=== PATIENT | male | born 1945 ===

== ENCOUNTER 2019-04-09 21:34 | Inpatient (IN) | payer MEDICARE ==
[~2019-04-09] VITALS: Ht 170.2 cm; Wt 58.7 kg
--- NOTE | 2019-04-09 21:54 | PHYS DOC ---
Adult General Chief Complaint Chief Complaint: CHEST PAIN HPI HPI 73-year-old male presents to the emergency Department with complaints of shortness of breath, chest pain. He has underlying history of diabetes, hyperlipidemia, hypertension, end-stage renal disease with hemodialysis dependency. Patient states he's missed the dialysis on Monday/Monday. He complains of substernal chest pain ongoing for approximately 1 hour. This however has been ongoing times the last day off/on. Pain is described as sharp. He is tachypneic/pale on exam Review of Systems Review of Systems Constitutional: Denies fever or chills [] Eyes: Denies change in visual acuity, redness, or eye pain [] HENT: Denies nasal congestion or sore throat [] Respiratory: Denies cough or shortness of breath [] Cardiovascular: No additional information not addressed in HPI [] GI: Denies abdominal pain, nausea, vomiting, bloody stools or diarrhea [] : Denies dysuria or hematuria [] Musculoskeletal: Denies back pain or joint pain [] Integument: Denies rash or skin lesions [] Neurologic: Denies headache, focal weakness or sensory changes [] Endocrine: Denies polyuria or polydipsia [] All other systems were reviewed and found to be within normal limits, except as documented in this note. Current Medications Current Medications Current Medications Medications (Trade) Dose Ordered Sig/Magno Start Time Stop Time Status Last Admin Dose Admin Albuterol/ Ipratropium (Duoneb) 3 ml 1X ONCE 04/09/19 22:00 04/09/19 22:01 DC 04/09/19 21:54 3 ML Heparin Sodium (Porcine) (Heparin Sodium) 1,500 unit PRN Q6HRS PRN 04/09/19 23:15 Heparin Sodium/ Dextrose 250 ml @ 0 mls/hr CONT PRN 04/09/19 23:15 Morphine Sulfate (Morphine Sulfate) 2 mg 1X ONCE 04/09/19 22:30 04/09/19 22:31 DC Allergies Allergies Allergies Coded Allergies Type Severity Reaction Last Updated Verified No Known Drug Allergies 04/09/19 No Physical Exam Physical Exam Constitutional: Well developed, well nourished, no acute distress, non-toxic appearance. [] HENT: Normocephalic, atraumatic, bilateral external ears normal, oropharynx moist, no oral exudates, nose normal. [] Eyes: PERRLA, EOMI, conjunctiva normal, no discharge. [] Neck: Normal range of motion, no tenderness, supple, no stridor. [] Cardiovascular:Heart rate regular rhythm, no murmur [] Lungs & Thorax: Bilateral breath sounds clear to auscultation [] Abdomen: Bowel sounds normal, soft, no tenderness, no masses, no pulsatile masses. [] Skin: Warm, dry, no erythema, no rash. [] Back: No tenderness, no CVA tenderness. [] Extremities: No tenderness, no cyanosis, no clubbing, ROM intact, no edema. [] Neurologic: Alert and oriented X 3, normal motor function, normal sensory function, no focal deficits noted. [] Psychologic: Affect normal, judgement normal, mood normal. [] Current Patient Data Vital Signs Vital Signs Date Time Temp Pulse Resp B/P (MAP) Pulse Ox O2 Delivery O2 Flow Rate FiO2 04/09/19 22:22 100 BiPAP/CPAP 04/09/19 22:07 15.0 Lab Values Laboratory Tests Test 04/09/19 22:10 04/09/19 22:43 O2 Saturation 96 % (92-99) Arterial Blood pH 7.44 (7.35-7.45) Arterial Blood pCO2 at Patient Temp 34 mmHg (35-46) L Arterial Blood pO2 at Patient Temp 91 mmHg (65-108) Arterial Blood HCO3 22 mmol/L (21-28) Arterial Blood Base Excess -1 mmol/L (-3-3) FiO2 80 White Blood Count 12.5 x10^3/uL (4.0-11.0) H Red Blood Count 3.64 x10^6/uL (4.30-5.70) L Hemoglobin 10.8 g/dL (13.0-17.5) L Hematocrit 32.5 % (39.0-53.0) L Mean Corpuscular Volume 89 fL (79-100) Mean Corpuscular Hemoglobin 30 pg (25-35) Mean Corpuscular Hemoglobin Concent 33 g/dL (31-37) Red Cell Distribution Width 21.2 % (11.5-14.5) H Platelet Count 104 x10^3/uL (140-400) L Neutrophils (%) (Auto) 90 % (31-73) H Lymphocytes (%) (Auto) 4 % (24-48) L Monocytes (%) (Auto) 5 % (0-9) Eosinophils (%) (Auto) 1 % (0-3) Basophils (%) (Auto) 1 % (0-3) Neutrophils # (Auto) 11.2 x10^3/uL (1.8-7.7) H Lymphocytes # (Auto) 0.5 x10^3/uL (1.0-4.8) L Monocytes # (Auto) 0.6 x10^3/uL (0.0-1.1) Eosinophils # (Auto) 0.1 x10^3/uL (0.0-0.7) Basophils # (Auto) 0.1 x10^3/uL (0.0-0.2) Segmented Neutrophils % 88 % (35-66) H Lymphocytes % 4 % (24-48) L Monocytes % 5 % (0-10) Eosinophils % 3 % (0-5) Platelet Estimate Decreased (ADEQUATE) Polychromasia Slight Anisocytosis Mod Ovalocytes Few Sodium Level 138 mmol/L (136-145) Potassium Level 4.8 mmol/L (3.5-5.1) Chloride Level 96 mmol/L (98-107) L Carbon Dioxide Level 25 mmol/L (21-32) Anion Gap 17 (6-14) H Blood Urea Nitrogen 78 mg/dL (8-26) H Creatinine 9.3 mg/dL (0.7-1.3) H Estimated GFR (Cockcroft-Gault) 5.6 BUN/Creatinine Ratio 8 (6-20) Glucose Level 253 mg/dL (70-99) H Calcium Level 9.2 mg/dL (8.5-10.1) Total Bilirubin 0.5 mg/dL (0.2-1.0) Aspartate Amino Transferase (AST) 43 U/L (15-37) H Alanine Aminotransferase (ALT) 25 U/L (16-63) Alkaline Phosphatase 118 U/L (46-116) H Troponin I Quantitative 3.681 ng/mL (0.000-0.055) FZ-Uev-F-Type Natriuretic Peptide > 47939 pg/mL (0-124) H Total Protein 6.4 g/dL (6.4-8.2) Albumin 3.0 g/dL (3.4-5.0) L Albumin/Globulin Ratio 0.9 (1.0-1.7) L Laboratory Tests 04/09/19 22:43 Laboratory Tests 04/09/19 22:43 EKG EKG EKG reviewed interpretation time 2143, sinus tachycardia, 132, normal axis, no STEMI[] Radiology/Procedures Radiology/Procedures [facility] [address] [place] [address] IMAGING REPORT Signed PATIENT: TESSA GONZALEZ ACCOUNT: [id number] : 1945 LOCATION: ER AGE: 73 SEX: M EXAM STATUS: REG ER ORD. PHYSICIAN: ASHLEY CONTRERAS MD REASON: SOB PROCEDURE: PORTABLE CHEST 1V AP chest. HISTORY: Short of breath AP view was taken of the chest. There are bilateral hazy diffuse infiltrates or pulmonary edema. The heart does not appear enlarged. There is no definite pleural effusion. IMPRESSION: 1. Hazy bilateral airspace disease from infiltrates or edema. Electronically signed by: Domo Chen MD (04/09/2019 10:50 PM) [id number] DICTATED and SIGNED BY: DOMO CHEN MD DATE: 04/09/192249 [] Course & Med Decision Making Course & Med Decision Making Pertinent Labs and Imaging studies reviewed. (See chart for details) []73-year-old male presents to the emergency Department with complaints of shortness of breath, chest pain. He has underlying history of diabetes, hyperlipidemia, hypertension, end-stage renal disease with hemodialysis dependency. Patient states he's missed the dialysis on Monday/Monday. He complains of substernal chest pain ongoing for approximately 1 hour. This however has been ongoing times the last day off/on. Pain is described as sharp. He is tachypneic/pale on exam Duoneb upon arrival - ABG obtained with initiation BIPAP Imaging reveals evidence of acute pulmonary edema Patient does not urinate - lasix not provided ABG reviewed - . K within normal limits. trop elevated Heparin drip initiated with continued BIPAP - unknown baseline trop, will trend Cardiology/Renal consult placed Patient overall improved with BIPAP Dragon Disclaimer Dragon Disclaimer This electronic medical record was generated, in whole or in part, using a voice recognition dictation system. Departure Departure Impression: Primary Impression: Acute pulmonary edema Additional Impressions: Chest pain NSTEMI (non-ST elevated myocardial infarction) ESRD (end stage renal disease) on dialysis Disposition: ADMITTED INPATIENT Condition: IMPROVED Referrals: JENNIFER BLACKWELL DO (PCP) Critical Care Time Critical care time was 35 minutes exclusive of procedures. Problem Qualifiers Additional Impressions: Chest pain Chest pain type: unspecified Qualified Codes: R07.9 - Chest pain, unspecified ASHLEY CONTRERAS MD Apr 09, 2019 21:54
[2019-04-09] MEDS ORDERED: IPRATRPIUM/ALBUTEROL 0.5/2.5MG 3 ML NEBU. NEB ONE (22:00)
[2019-04-09 22:10] LABS: BASE EXCESS ABG -1 mmol/L (-3-3); HCO3 ABG 22 mmol/L (21-28); PCO2 ABG 34 mmHg (35-46); PO2 ABG 91 mmHg (65-108); SAT O2 ABG 96 % (92-99)
[2019-04-09 22:29] LABS: FIO2 ABG 80
[2019-04-09] MEDS ORDERED: MORPHINE SULFATE 2 MG/ML VIAL. IV ONE (22:30)
--- NOTE | 2019-04-09 22:53 | RAD ---
AP chest. HISTORY: Short of breath AP view was taken of the chest. There are bilateral hazy diffuse infiltrates or pulmonary edema. The heart does not appear enlarged. There is no definite pleural effusion. IMPRESSION: 1. Hazy bilateral airspace disease from infiltrates or edema. Electronically signed by: Domo Chen MD (04/09/2019 10:50 PM) [id number]
[2019-04-09 22:54] LABS: BASO # 0.1 x10^3/uL (0.0-0.2); BASO % 1 % (0-3); EOS # 0.1 x10^3/uL (0.0-0.7); EOS % 1 % (0-3); HEMATOCRIT 32.5 % (39.0-53.0); HEMOGLOBIN 10.8 g/dL (13.0-17.5); LYMPH # 0.5 x10^3/uL (1.0-4.8); LYMPH % 4 % (24-48); MEAN CORPUSCULAR HEMOGLOBIN 30 pg (25-35); MEAN CORPUSCULAR HGB CONC 33 g/dL (31-37); MEAN CORPUSCULAR VOLUME 89 fL (79-100); MONO # 0.6 x10^3/uL (0.0-1.1); MONO % 5 % (0-9); NEUT # 11.2 x10^3/uL (1.8-7.7); NEUT % 90 % (31-73); PLATELET COUNT 104 x10^3/uL (140-400); RED BLOOD COUNT 3.64 x10^6/uL (4.30-5.70); RED CELL DISTRIBUTION WIDTH 21.2 % (11.5-14.5); WHITE BLOOD COUNT 12.5 x10^3/uL (4.0-11.0)
[2019-04-09 23:01] LABS: CALCIUM 9.2 mg/dL (8.5-10.1); CREATININE 9.3 mg/dL (0.7-1.3); GFR 5.6; POTASSIUM 4.8 mmol/L (3.5-5.1)
[2019-04-09 23:06] LABS: ALBUMIN/GLOBULIN RATIO 0.9 (1.0-1.7); TOTAL BILIRUBIN 0.5 mg/dL (0.2-1.0); TOTAL PROTEIN 6.4 g/dL (6.4-8.2)
[2019-04-09] MEDS ORDERED: HEPARIN for IV BOLUS 10,000 UNIT/10 ML VIAL. IV ONE (23:15)
[2019-04-09 23:19] LABS: % EOS 3 % (0-5); % LYMPHS 4 % (24-48); % MONOS 5 % (0-10); % SEGS 88 % (35-66); ANISOCYTOSIS MOD; OVALOCYTES FEW; PLT ESTIMATE DECREASED (ADEQUATE); POLYCHROMASIA SLIGHT
[2019-04-09] MEDS ORDERED: ACETAMINOPHEN 325 MG TABLET. PO PRN (23:45)
[2019-04-09] MEDS ORDERED: ONDANSETRON PF 4 MG/2 ML VIAL. IV PRN (23:45)
[2019-04-09] MEDS ORDERED: NITROGLYCERIN SUBLINGUAL 0.4 MG BOTTLE OF 25. SL PRN (23:45)
[2019-04-10] MEDS: HEPARIN 25,000UTS/250ML PREMIX 250 ML IV PRN ×2 (00:25→20:25)
[2019-04-10 01:30] VITALS: BP 154/84
[2019-04-10] MEDS ORDERED: SENN8.8S5 PO (02:45)
[2019-04-10] MEDS ORDERED: SEVE800T9 PO (02:45)
[2019-04-10] MEDS ORDERED: INSU100V31 SQ (02:46)
[2019-04-10] MEDS ORDERED: INSU100I13 SQ (02:47)
[2019-04-10] MEDS ORDERED: MELA3TAB4 PO (02:48)
[2019-04-10] MEDS ORDERED: VIT1TABL70 PO (02:48)
[2019-04-10] MEDS ORDERED: ATOR40TA59 PO (02:49)
[2019-04-10] MEDS ORDERED: CLOP75TA57 PO (02:49)
[2019-04-10] MEDS ORDERED: ASPI-630 PO (02:50)
[2019-04-10 03:00] VITALS: BP 138/80
--- NOTE | 2019-04-10 03:54 | NUR ---
Admit from ED via gurney to [facility] room 252. Patient admit with Resp/Failure, Pulmonary Edema, Chest Pain and NSTEMI. BiPap placed on patient upon admit to his room with setting of 16/4 with rate of 20, 40% FIO2. Patient from [facility] with history of dementia. Difficult to obtain history from patient at this time. History taken from info sent from [facility] as well as talking with patient. Coccyx wound noted upon admit. Pictured wound and placed on chart. Cleaned and dried coccyx and applied [place] Foam dressing. Heparin drip started in ED and infusing on arrival to unit. Patient currently sleeping with BiPap on. Call light at hand. Bed alarm on.
--- NOTE | 2019-04-10 05:59 | EKG ---
[facility] [address] [place] [address] Test Date: 2019-04-09 Test Time: 21:42:32 Pat Name: TESSA GONZALEZ Department: Room: Gender: M [employer] Technician: : 1945 Requested By: ASHLEY CONTRERAS Order Number: [id number] Reading MD: Measurements Intervals [place] Rate: 132 P: 65 CO: 118 QRS: 59 QRSD: 84 T: 50 QT: 300 QTc: 448 Interpretive Statements SINUS TACHYCARDIA VENTRICULAR PREMATURE COMPLEX(ES) LEFT ATRIAL ABNORMALITY ST & T ABNORMALITY, CONSIDER INFEROLATERAL ISCHEMIA OR LEFT VENTRICULAR STRAIN ABNORMAL ECG RI6.01 No previous ECG available for comparison
[2019-04-10 07:03] VITALS: BP 148/70
[2019-04-10 07:11] LABS: BASO % 0 % (0-3); EOS % 0 % (0-3); HEMATOCRIT 33.5 % (39.0-53.0); HEMOGLOBIN 11.1 g/dL (13.0-17.5); LYMPH # 0.8 x10^3/uL (1.0-4.8); LYMPH % 8 % (24-48); MEAN CORPUSCULAR HEMOGLOBIN 30 pg (25-35); MEAN CORPUSCULAR HGB CONC 33 g/dL (31-37); MEAN CORPUSCULAR VOLUME 90 fL (79-100); MONO # 0.6 x10^3/uL (0.0-1.1); MONO % 6 % (0-9); NEUT # 9.2 x10^3/uL (1.8-7.7); NEUT % 85 % (31-73); PLATELET COUNT 100 x10^3/uL (140-400); RED BLOOD COUNT 3.71 x10^6/uL (4.30-5.70); RED CELL DISTRIBUTION WIDTH 21.2 % (11.5-14.5); WHITE BLOOD COUNT 10.7 x10^3/uL (4.0-11.0)
[2019-04-10 07:29] LABS: ALBUMIN/GLOBULIN RATIO 0.9 (1.0-1.7); CREATININE 9.7 mg/dL (0.7-1.3); GFR 5.3; POTASSIUM 4.7 mmol/L (3.5-5.1); TOTAL BILIRUBIN 0.5 mg/dL (0.2-1.0); TOTAL PROTEIN 6.5 g/dL (6.4-8.2)
[2019-04-10] MEDS: IPRATRPIUM/ALBUTEROL 0.5/2.5MG 3 ML NEBU. NEB SCH ×5 (08:00→19:36)
[2019-04-10] MEDS ORDERED: ANTI-COAG MONITOR BY PHARMACY. MC PRN (09:15)
--- NOTE | 2019-04-10 10:27 | PDOC2 ---
CARDIAC CONSULT DATE OF CONSULT Date of Consult DATE: 04/10/19 TIME: 10:20 REASON FOR CONSULT Reason for Consult: NSTEMI REFERRING PHYSICIAN Referring Physician: Dr. Ferro SOURCE Source: Chart review, Patient HISTORY OF PRESENT ILLNESS HISTORY OF PRESENT ILLNESS This is a 73 yo male who presented secondary to shortness of breath and chest pain. Patient is ESRD on HD. Has been at [facility]. Missed his last 2 HD [facility] as he has not been feeling well. Developed shortness of breath yesterday along with pressure in his left chest. No dizziness, diaphoresis, palpitations, or nausea/vomiting. Pain persisted throughout the afternoon so he came to the ED for further evaluation and treatment. Trop noted to be elevated upon arrival, heparin gtt initiated. Is CP free Has extensive cardiac history noted below. Follow with [facility] 11/2018 with moderate to severe CAD that is being medically managed at patient was deemed poor surgical candidate due to comorbidities. PAST MEDICAL HISTORY Cardiovascular: CAD, CHF, HTN, Hyperlipidemia, Other (PVD) CENTRAL NERVOUS SYSTEM: Dementia Heme/Onc: Anemia NOS Renal/: Chronic renal failure (ESRD ) Endocrine: Diabetes PAST SURGICAL HISTORY Past Surgical History: Other (left TMA) FAMILY HISTORY Family History: Hypertension SOCIAL HISTORY Smoke: No ALCOHOL: other (quit ) Drugs: None Lives: [place] (presently at rehab facility ) CURRENT MEDICATIONS CURRENT MEDICATIONS Current Medications Medications (Trade) Dose Ordered Sig/Magno Route PRN Reason Start Time Stop Time Status Last Admin Dose Admin Albuterol/ Ipratropium (Duoneb) 3 ml 1X ONCE NEB 04/09/19 22:00 04/09/19 22:01 DC 04/09/19 21:54 Heparin Sodium (Porcine) (Heparin Sodium) 3,600 unit 1X ONCE IV 04/09/19 23:15 04/09/19 23:16 DC 04/10/19 00:24 Heparin Sodium/ Dextrose 250 ml @ 0 mls/hr CONT PRN IV PER PROTOCOL 04/09/19 23:15 04/10/19 00:25 Albuterol/ Ipratropium (Duoneb) 3 ml RTQID NEB 04/10/19 08:00 04/11/19 07:59 04/10/19 08:00 ALLERGIES ALLERGIES: Coded Allergies: No Known Drug Allergies (Unverified , 04/09/19) ROS Review of System 14 point ROS conducted with pertinent positives noted above in HPI PHYSICAL EXAM General: Alert, Oriented X3, Cooperative, mild distress HEENT: Atraumatic, Mucous membr. moist/pink Lungs: Other (diminished, in BiPAP) Abdomen: Soft, No tenderness Extremities: No edema, Normal pulses Skin: No significant lesion Neuro: Normal speech, Sensation intact Psych/Mental Status: Mood NL MUSCULOSKELETAL: Osteoarthritic changes both hands VITALS/I&O VITALS/I&O: Vital Signs Date Time Temp Pulse Resp B/P (MAP) Pulse Ox O2 Delivery O2 Flow Rate FiO2 04/10/19 09:34 AVAPS 04/10/19 08:32 99 04/10/19 07:50 15.0 04/10/19 07:03 97.2 97 20 148/70 (96) 97.2 I & O 04/09/19 04/09/19 04/10/19 15:00 23:00 07:00 Intake Total 0 ml Balance 0 ml LABS Lab: Laboratory Tests Test 04/09/19 22:10 04/09/19 22:43 04/10/19 03:00 04/10/19 06:50 O2 Saturation 96 % (92-99) Arterial Blood pH 7.44 (7.35-7.45) Arterial Blood pCO2 at Patient Temp 34 mmHg (35-46) L Arterial Blood pO2 at Patient Temp 91 mmHg (65-108) Arterial Blood HCO3 22 mmol/L (21-28) Arterial Blood Base Excess -1 mmol/L (-3-3) FiO2 80 White Blood Count 12.5 x10^3/uL (4.0-11.0) H 10.7 x10^3/uL (4.0-11.0) Red Blood Count 3.64 x10^6/uL (4.30-5.70) L 3.71 x10^6/uL (4.30-5.70) L Hemoglobin 10.8 g/dL (13.0-17.5) L 11.1 g/dL (13.0-17.5) L Hematocrit 32.5 % (39.0-53.0) L 33.5 % (39.0-53.0) L Mean Corpuscular Volume 89 fL (79-100) 90 fL (79-100) Mean Corpuscular Hemoglobin 30 pg (25-35) 30 pg (25-35) Mean Corpuscular Hemoglobin Concent 33 g/dL (31-37) 33 g/dL (31-37) Red Cell Distribution Width 21.2 % (11.5-14.5) H 21.2 % (11.5-14.5) H Platelet Count 104 x10^3/uL (140-400) L 100 x10^3/uL (140-400) L Neutrophils (%) (Auto) 90 % (31-73) H 85 % (31-73) H Lymphocytes (%) (Auto) 4 % (24-48) L 8 % (24-48) L Monocytes (%) (Auto) 5 % (0-9) 6 % (0-9) Eosinophils (%) (Auto) 1 % (0-3) 0 % (0-3) Basophils (%) (Auto) 1 % (0-3) 0 % (0-3) Neutrophils # (Auto) 11.2 x10^3/uL (1.8-7.7) H 9.2 x10^3/uL (1.8-7.7) H Lymphocytes # (Auto) 0.5 x10^3/uL (1.0-4.8) L 0.8 x10^3/uL (1.0-4.8) L Monocytes # (Auto) 0.6 x10^3/uL (0.0-1.1) 0.6 x10^3/uL (0.0-1.1) Eosinophils # (Auto) 0.1 x10^3/uL (0.0-0.7) 0.0 x10^3/uL (0.0-0.7) Basophils # (Auto) 0.1 x10^3/uL (0.0-0.2) 0.0 x10^3/uL (0.0-0.2) Segmented Neutrophils % 88 % (35-66) H Lymphocytes % 4 % (24-48) L Monocytes % 5 % (0-10) Eosinophils % 3 % (0-5) Platelet Estimate Decreased (ADEQUATE) Polychromasia Slight Anisocytosis Mod Ovalocytes Few Sodium Level 138 mmol/L (136-145) 139 mmol/L (136-145) Potassium Level 4.8 mmol/L (3.5-5.1) 4.7 mmol/L (3.5-5.1) Chloride Level 96 mmol/L (98-107) L 97 mmol/L (98-107) L Carbon Dioxide Level 25 mmol/L (21-32) 24 mmol/L (21-32) Anion Gap 17 (6-14) H 18 (6-14) H Blood Urea Nitrogen 78 mg/dL (8-26) H 83 mg/dL (8-26) H Creatinine 9.3 mg/dL (0.7-1.3) H 9.7 mg/dL (0.7-1.3) H Estimated GFR (Cockcroft-Gault) 5.6 5.3 BUN/Creatinine Ratio 8 (6-20) 9 (6-20) Glucose Level 253 mg/dL (70-99) H 190 mg/dL (70-99) H Calcium Level 9.2 mg/dL (8.5-10.1) 9.0 mg/dL (8.5-10.1) Total Bilirubin 0.5 mg/dL (0.2-1.0) 0.5 mg/dL (0.2-1.0) Aspartate Amino Transferase (AST) 43 U/L (15-37) H 47 U/L (15-37) H Alanine Aminotransferase (ALT) 25 U/L (16-63) 25 U/L (16-63) Alkaline Phosphatase 118 U/L (46-116) H 109 U/L (46-116) Troponin I Quantitative 3.681 ng/mL (0.000-0.055) 3.914 ng/mL (0.000-0.055) 4.076 ng/mL (0.000-0.055) RU-Bgi-S-Type Natriuretic Peptide > 48086 pg/mL (0-124) H Total Protein 6.4 g/dL (6.4-8.2) 6.5 g/dL (6.4-8.2) Albumin 3.0 g/dL (3.4-5.0) L 3.0 g/dL (3.4-5.0) L Albumin/Globulin Ratio 0.9 (1.0-1.7) L 0.9 (1.0-1.7) L Heparin Anti-Xa Act, Unfractionated 0.29 IU/mL (0.30-0.70) L Test 04/10/19 07:18 Glucose (Fingerstick) 177 mg/dL (70-99) H Laboratory Tests 04/09/19 22:43 04/10/19 06:50 Laboratory Tests 04/09/19 22:43 04/10/19 06:50 ECHOCARDIOGRAM ECHOCARDIOGRAM 11/19/18 - 2-D + DOPPLER ECHOCARDIOGRAM * [place] left ventricular ejection fraction estimated 50 %. Mild left ventricular dilatation: Left ventricular diastolic volume index: 78 ml * Indeterminate diastolic function per criteria. * Normal sized right ventricle with preservation of systolic function. * Evidence of posterior mitral valve leaflet tethering producing mild regurgitation with posteriorly directed jet. * Aortic valve sclerosis without stenosis. * CVP estimated 8 mmHg. Peak PA systolic pressure not estimated given adequate TR jet. * Trivial pericardial effusion. * The visualized portions of the aortic root and ascending thoracic aorta are within normal limits. Compared to a prior December 14, 2015 transthoracic echocardiogram, there is been interval reduction in the left ventricular systolic function from 65% to 50 %. There is demonstration for at least mild mitral regurgitation with evidence of posterior mitral valve leaflet tethering with a posteriorly directed jet. There are no other significant interval development. HEART CATH HEART CATH SELECTIVE CORONARY ARTERIOGRAM: Left main coronary artery: Arises normally from the left coronary sinus. It shows mild calcification. There does not appear to be any significant lesions. Left anterior descending artery: This arises normally from the left main. Very proximally, there is a focal area of about 60% to 70% lesion. This is followed by a diffuse 60% disease of the mid LAD. Distally, the LAD shows again diffuse disease of about 30% to 40%. The LAD does give rise to 2 diagonal branches, both of which appear to be patent. LAD is a type 3 vessel and wraps around the apex. Left circumflex artery: This arises normally from the left main. It is a dominant vessel. Proximally about 30% narrowing. Then the 1st obtuse marginal branch comes off with about a 60% proximal disease. The circumflex artery then continues and makes a significant 180 degree bend into the AV groove area. Right at this area, it is 99% occluded with a SIRIA 2 to SIRIA-3 flow. Right at the same place is the origin of the 2nd obtuse marginal branch with an ostial area of about 90%. Distally, it gives rise to a small posterolateral branch. Right coronary artery: This appears to be a nondominant vessel and appears to be patent. Attempted coronary intervention of this complex bifurcating lesion of the circumflex and obtuse marginal branch. Unable to get into the main circumflex artery due to the significant bend. When I stopped, patient had a SIRIA 2 flow. However, patient was not having any angina. The sheath was removed and TR Band applied. The case was discussed with Dr. Caldera. We will obtain a CTS consultation at this point. FINAL IMPRESSION: Moderate to severe disease involving the left anterior descending artery and severe subtotal occlusion of the circumflex artery along with its obtuse marginal branch has a bifurcating lesion. Attempted unsuccessful intervention of the circumflex and obtuse marginal branch. Normal left ventricular end-diastolic pressures. No evidence of any significant gradient across the aortic valve. RECOMMENDATION: Continue medical management. We will obtain a surgical consultation for coronary artery bypass graft surgery. DATE: 11/19/2018 ASSESSMENT/PLAN ASSESSMENT/PLAN 1. Acute respiratory failure with a/c CHF; on BiPAP 2. Acute on chronic diastolic CHF secondary to missed HD; LVEF 50% per echo 11/2018 3. NSTEMI; highest trop 4 on heparin gtt 4. CAD; moderate to severe CAD. Cath 12/01 as noted below. Moderate to severe LAD disease and LCx subtotal occlusion (unsuccessful attempt for PCI). RCA was nondominant and patent. Deemed poor surgical candidate due to comorbidities. Treated medically 5. ESRD on HD; uremic, missed HD 6. Hypertension 7. Hyperlipidemia 8. Diabetes, II Recommendations Limited echo to assess LV systolic function Resume ASA, statin, Plavix Add Imdur and low-dose BB Lipids Continue heparin gtt for 24-48 hrs Trend trop further to note peak Fluid offloading via HD Consider further ischemic workup if further significant troponin elevation noted. Otherwise, will plan for medical management. CARLINE GARCIA APRN Apr 10, 2019 10:27
[2019-04-10 10:49] LABS: CHOLESTEROL/HDL RATIO 2.8
[2019-04-10 10:53] VITALS: BP 143/77
[2019-04-10] MEDS: METOPROLOL TART IMMED RELEASE 25 MG TABLET. PO SCH ×2 (11:00→20:03)
[2019-04-10] MEDS ORDERED: IV NORMAL SALINE 1000ML BAG 1,000 ML IV PRN ×4 (12:00)
--- NOTE | 2019-04-10 12:15 | PDOC1 ---
History and Physical Date of Admission Date of Admission DATE: 04/10/19 TIME: 12:13 Identification/Chief Complaint Chief Complaint SEEN IN ER , 73-year-old male presents to the emergency Department with complaints of shortness of breath, chest pain. He has history of diabetes, hyperlipidemia, hypertension, end-stage renal disease with hemodialysis dependency. states he's missed the dialysis on Monday/Monday. He complains of substernal chest pain ongoing for approximately 1 hour. This however has been ongoing times the last day off/on. Pain is described as sharp. He was tachypneic/pale on exam Past Medical History Past Medical History diabetes, hyperlipidemia, hypertension, end-stage renal disease with hemodialysis severe LAD disease and LCx subtotal occlusion (unsuccessful attempt for PCI). RCA was nondominant and patent. Deemed poor surgical candidate due to comorbidities Cardiovascular: CAD, CHF, HTN, Hyperlipidemia, Other (PVD) CENTRAL NERVOUS SYSTEM: Dementia Heme/Onc: Anemia NOS Musculoskeletal: Osteoarthritis Renal/: Chronic renal failure (ESRD ) Endocrine: Diabetes Past Surgical History Past Surgical History: Other (left TMA) Family History Family History: High Cholestrol, Hypertension Social History Smoke: No ALCOHOL: none Drugs: None Current Problem List Problem List Problems Medical Problems: (1) Acute pulmonary edema Status: Acute (2) Chest pain Status: Acute (3) ESRD (end stage renal disease) on dialysis Status: Acute (4) NSTEMI (non-ST elevated myocardial infarction) Status: Acute Current Medications Current Medications Current Medications Albuterol/ Ipratropium (Duoneb) 3 ml 1X ONCE NEB Last administered on 04/09/19at 21:54; Start 04/09/19 at 22:00; Stop 04/09/19 at 22:01; Status DC Morphine Sulfate (Morphine Sulfate) 2 mg 1X ONCE IV ; Start 04/09/19 at 22:30; Stop 04/09/19 at 22:31; Status DC Heparin Sodium (Porcine) (Heparin Sodium) 3,600 unit 1X ONCE IV Last administered on 04/10/19at 00:24; Start 04/09/19 at 23:15; Stop 04/09/19 at 23:16; Status DC Heparin Sodium/ Dextrose 250 ml @ 0 mls/hr CONT PRN IV PER PROTOCOL Last admini stered on 04/10/19at 00:25; Start 04/09/19 at 23:15 Heparin Sodium (Porcine) (Heparin Sodium) 1,500 unit PRN Q6HRS PRN IV FOR UFH LEVEL LESS THAN 0.2; Start 04/09/19 at 23:15 Ondansetron HCl (Zofran) 4 mg PRN Q8HRS PRN IV NAUSEA/VOMITING; Start 04/09/19 at 23:45; Stop 04/10/19 at 23:44 Acetaminophen (Tylenol) 650 mg PRN Q4HRS PRN PO FEVER; Start 04/09/19 at 23:45; Stop 04/10/19 at 23:44 Nitroglycerin (Nitrostat) 0.4 mg PRN Q5MIN PRN SL CHEST PAIN; Start 04/09/19 at 23:45; Stop 04/10/19 at 23:44 Albuterol/ Ipratropium (Duoneb) 3 ml RTQID NEB Last administered on 04/10/19at 11:59; Start 04/10/19 at 08:00; Stop 04/11/19 at 07:59 Info (Anti-Coagulation Monitoring By Pharmacy) 1 each PRN DAILY PRN MC SEE COMMENTS; Start 04/10/19 at 09:15 Aspirin (Children'S Aspirin) 81 mg DAILY PO ; Start 04/10/19 at 11:00 Atorvastatin Calcium (Lipitor) 40 mg HS PO ; Start 04/10/19 at 21:00 Clopidogrel Bisulfate (Plavix) 75 mg DAILY PO ; Start 04/10/19 at 11:00 Isosorbide Mononitrate (Imdur) 30 mg DAILY PO ; Start 04/10/19 at 11:00 Metoprolol Tartrate (Lopressor) 12.5 mg BID PO ; Start 04/10/19 at 11:00 Active Scripts Active Reported Aspirin 81 Mg Tab.chew 81 Mg PO DAILY Atorvastatin Calcium 40 Mg Tablet 40 Mg PO HS Plavix (Clopidogrel Bisulfate) 75 Mg Tablet 75 Mg PO DAILY Melatonin 3 Mg Tablet 3 Mg PO HS Nephplex Rx Tablet (Vit B Cmplx No3/Fa/C/Biot/Zinc) 1 Each Tablet 1 Tab PO DAILY 30 Days Lantus Solostar (Insulin Glargine,Hum.rec.anlog) 100 Unit/1 Ml Insuln.pen 12 Unit SQ HS Novolog (Insulin Aspart) 100 Unit/1 Ml Vial 3 Unit SQ TIDWMEALS Renvela (Sevelamer Carbonate) 800 Mg Tablet 800 Mg PO TIDWMEALS Senna (Sennosides) 8.8 Mg/5 Ml Syrup 8.8 Mg PO DAILY PRN Allergies Allergies: Coded Allergies: No Known Drug Allergies (Unverified , 04/09/19) ROS Review of System Review of Systems Review of Systems Constitutional: Denies fever or chills [] Eyes: Denies change in visual acuity, redness, or eye pain [] HENT: Denies nasal congestion or sore throat [] Respiratory: Denies cough or shortness of breath [] Cardiovascular: No additional information not addressed in HPI [] GI: Denies abdominal pain, nausea, vomiting, bloody stools or diarrhea [] : Denies dysuria or hematuria [] Musculoskeletal: Denies back pain or joint pain [] Integument: Denies rash or skin lesions [] Neurologic: Denies headache, focal weakness or sensory changes [] Endocrine: Denies polyuria or polydipsia [] 14 PT systems were reviewed and found to be within normal limits, except as documented ALLERGY AND IMMUNOLOGY: No: Hives, Insect Bite Sensitivity, Itchy/Watery Eyes, Nasal Congestion, Post Nasal Drip, Seasonal Allergies, Other Hematological and Lymphatic: No: Bleeding Problems, Blood Clots, Blood Transfusions, Brusing, Night Sweats, Pallor, Swollen Lymph Nodes, Other Cardiovascular: yes Chest Pain Musculoskeletal: Yes Joint Stiffness Skin: Yes Dry Skin; No Eczema, No Hair Changes, No Lumps, No Mole Changes, No Mottling, No Nail Changes, No Pruritus, No Rash, No Skin Lesion Changes, No Other, No Acne Physical Exam Physical Exam Physical Exam Physical Exam Constitutional: Well developed, well nourished, no acute distress, non-toxic appearance. [] HENT: Normocephalic, atraumatic, bilateral external ears normal, oropharynx moist, no oral exudates, nose normal. [] Eyes: PERRLA, EOMI, conjunctiva normal, no discharge. [] Neck: Normal range of motion, no tenderness, supple, no stridor. [] Cardiovascular:Heart rate regular rhythm, no murmur [] Lungs & Thorax: Bilateral breath sounds clear to auscultation [] Abdomen: Bowel sounds normal, soft, no tenderness, no masses, no pulsatile masses. [] Skin: Warm, dry, no erythema, no rash. [] Back: No tenderness, no CVA tenderness. [] Extremities: No tenderness, no cyanosis, no clubbing, ROM intact, no edema. [] Neurologic: Alert and oriented X 3, normal motor function, normal sensory function, no focal deficits noted. [] Psychologic: Affect normal, judgment normal, mood normal. [] General: Alert, Oriented X3, Cooperative, No acute distress HEENT: Mucous membr. moist/pink Lungs: Normal air movement Breasts: Not examined Abdomen: Normal bowel sounds, Soft Rectal Exam: not examined PELVIC: Examination not indicated Extremities: No cyanosis Neuro: Normal speech, Cranial nerves 3-12 NL Psych/Mental Status: Mental status NL, Mood NL Vitals Vitals Vital Signs Date Time Temp Pulse Resp B/P (MAP) Pulse Ox O2 Delivery O2 Flow Rate FiO2 04/10/19 11:52 100 AVAPS 04/10/19 10:53 98.8 96 22 143/77 (99) 98.8 04/10/19 07:50 15.0 Labs Labs Laboratory Tests Test 04/09/19 22:10 04/09/19 22:43 04/10/19 03:00 04/10/19 06:50 O2 Saturation 96 % (92-99) Arterial Blood pH 7.44 (7.35-7.45) Arterial Blood pCO2 at Patient Temp 34 mmHg (35-46) Arterial Blood pO2 at Patient Temp 91 mmHg (65-108) Arterial Blood HCO3 22 mmol/L (21-28) Arterial Blood Base Excess -1 mmol/L (-3-3) FiO2 80 White Blood Count 12.5 x10^3/uL (4.0-11.0) 10.7 x10^3/uL (4.0-11.0) Red Blood Count 3.64 x10^6/uL (4.30-5.70) 3.71 x10^6/uL (4.30-5.70) Hemoglobin 10.8 g/dL (13.0-17.5) 11.1 g/dL (13.0-17.5) Hematocrit 32.5 % (39.0-53.0) 33.5 % (39.0-53.0) Mean Corpuscular Volume 89 fL (79-100) 90 fL (79-100) Mean Corpuscular Hemoglobin 30 pg (25-35) 30 pg (25-35) Mean Corpuscular Hemoglobin Concent 33 g/dL (31-37) 33 g/dL (31-37) Red Cell Distribution Width 21.2 % (11.5-14.5) 21.2 % (11.5-14.5) Platelet Count 104 x10^3/uL (140-400) 100 x10^3/uL (140-400) Neutrophils (%) (Auto) 90 % (31-73) 85 % (31-73) Lymphocytes (%) (Auto) 4 % (24-48) 8 % (24-48) Monocytes (%) (Auto) 5 % (0-9) 6 % (0-9) Eosinophils (%) (Auto) 1 % (0-3) 0 % (0-3) Basophils (%) (Auto) 1 % (0-3) 0 % (0-3) Neutrophils # (Auto) 11.2 x10^3/uL (1.8-7.7) 9.2 x10^3/uL (1.8-7.7) Lymphocytes # (Auto) 0.5 x10^3/uL (1.0-4.8) 0.8 x10^3/uL (1.0-4.8) Monocytes # (Auto) 0.6 x10^3/uL (0.0-1.1) 0.6 x10^3/uL (0.0-1.1) Eosinophils # (Auto) 0.1 x10^3/uL (0.0-0.7) 0.0 x10^3/uL (0.0-0.7) Basophils # (Auto) 0.1 x10^3/uL (0.0-0.2) 0.0 x10^3/uL (0.0-0.2) Segmented Neutrophils % 88 % (35-66) Lymphocytes % 4 % (24-48) Monocytes % 5 % (0-10) Eosinophils % 3 % (0-5) Platelet Estimate Decreased (ADEQUATE) Polychromasia Slight Anisocytosis Mod Ovalocytes Few Sodium Level 138 mmol/L (136-145) 139 mmol/L (136-145) Potassium Level 4.8 mmol/L (3.5-5.1) 4.7 mmol/L (3.5-5.1) Chloride Level 96 mmol/L (98-107) 97 mmol/L (98-107) Carbon Dioxide Level 25 mmol/L (21-32) 24 mmol/L (21-32) Anion Gap 17 (6-14) 18 (6-14) Blood Urea Nitrogen 78 mg/dL (8-26) 83 mg/dL (8-26) Creatinine 9.3 mg/dL (0.7-1.3) 9.7 mg/dL (0.7-1.3) Estimated GFR (Cockcroft-Gault) 5.6 5.3 BUN/Creatinine Ratio 8 (6-20) 9 (6-20) Glucose Level 253 mg/dL (70-99) 190 mg/dL (70-99) Calcium Level 9.2 mg/dL (8.5-10.1) 9.0 mg/dL (8.5-10.1) Total Bilirubin 0.5 mg/dL (0.2-1.0) 0.5 mg/dL (0.2-1.0) Aspartate Amino Transf (AST/SGOT) 43 U/L (15-37) 47 U/L (15-37) Alanine Aminotransferase (ALT/SGPT) 25 U/L (16-63) 25 U/L (16-63) Alkaline Phosphatase 118 U/L (46-116) 109 U/L (46-116) Troponin I Quantitative 3.681 ng/mL (0.000-0.055) 3.914 ng/mL (0.000-0.055) 4.076 ng/mL (0.000-0.055) WX-Gxz-E-Type Natriuretic Peptide > 41389 pg/mL (0-124) Total Protein 6.4 g/dL (6.4-8.2) 6.5 g/dL (6.4-8.2) Albumin 3.0 g/dL (3.4-5.0) 3.0 g/dL (3.4-5.0) Albumin/Globulin Ratio 0.9 (1.0-1.7) 0.9 (1.0-1.7) Heparin Anti-Xa Act, Unfractionated 0.29 IU/mL (0.30-0.70) Triglycerides Level 89 mg/dL (0-150) Cholesterol Level 128 mg/dL (0-200) LDL Cholesterol, Calculated 65 mg/dL (0-100) VLDL Cholesterol, Calculated 18 mg/dL (0-40) Non-HDL Cholesterol Calculated 83 mg/dL (0-129) HDL Cholesterol 45 mg/dL (40-60) Cholesterol/HDL Ratio 2.8 Thyroid Stimulating Hormone (TSH) 4.257 uIU/mL (0.358-3.74) Test 04/10/19 07:18 04/10/19 11:39 Glucose (Fingerstick) 177 mg/dL (70-99) 190 mg/dL (70-99) Laboratory Tests Test 04/09/19 22:10 04/09/19 22:43 04/10/19 03:00 04/10/19 06:50 O2 Saturation 96 % (92-99) Arterial Blood pH 7.44 (7.35-7.45) Arterial Blood pCO2 at Patient Temp 34 mmHg (35-46) Arterial Blood pO2 at Patient Temp 91 mmHg (65-108) Arterial Blood HCO3 22 mmol/L (21-28) Arterial Blood Base Excess -1 mmol/L (-3-3) FiO2 80 White Blood Count 12.5 x10^3/uL (4.0-11.0) 10.7 x10^3/uL (4.0-11.0) Red Blood Count 3.64 x10^6/uL (4.30-5.70) 3.71 x10^6/uL (4.30-5.70) Hemoglobin 10.8 g/dL (13.0-17.5) 11.1 g/dL (13.0-17.5) Hematocrit 32.5 % (39.0-53.0) 33.5 % (39.0-53.0) Mean Corpuscular Volume 89 fL (79-100) 90 fL (79-100) Mean Corpuscular Hemoglobin 30 pg (25-35) 30 pg (25-35) Mean Corpuscular Hemoglobin Concent 33 g/dL (31-37) 33 g/dL (31-37) Red Cell Distribution Width 21.2 % (11.5-14.5) 21.2 % (11.5-14.5) Platelet Count 104 x10^3/uL (140-400) 100 x10^3/uL (140-400) Neutrophils (%) (Auto) 90 % (31-73) 85 % (31-73) Lymphocytes (%) (Auto) 4 % (24-48) 8 % (24-48) Monocytes (%) (Auto) 5 % (0-9) 6 % (0-9) Eosinophils (%) (Auto) 1 % (0-3) 0 % (0-3) Basophils (%) (Auto) 1 % (0-3) 0 % (0-3) Neutrophils # (Auto) 11.2 x10^3/uL (1.8-7.7) 9.2 x10^3/uL (1.8-7.7) Lymphocytes # (Auto) 0.5 x10^3/uL (1.0-4.8) 0.8 x10^3/uL (1.0-4.8) Monocytes # (Auto) 0.6 x10^3/uL (0.0-1.1) 0.6 x10^3/uL (0.0-1.1) Eosinophils # (Auto) 0.1 x10^3/uL (0.0-0.7) 0.0 x10^3/uL (0.0-0.7) Basophils # (Auto) 0.1 x10^3/uL (0.0-0.2) 0.0 x10^3/uL (0.0-0.2) Segmented Neutrophils % 88 % (35-66) Lymphocytes % 4 % (24-48) Monocytes % 5 % (0-10) Eosinophils % 3 % (0-5) Platelet Estimate Decreased (ADEQUATE) Polychromasia Slight Anisocytosis Mod Ovalocytes Few Sodium Level 138 mmol/L (136-145) 139 mmol/L (136-145) Potassium Level 4.8 mmol/L (3.5-5.1) 4.7 mmol/L (3.5-5.1) Chloride Level 96 mmol/L (98-107) 97 mmol/L (98-107) Carbon Dioxide Level 25 mmol/L (21-32) 24 mmol/L (21-32) Anion Gap 17 (6-14) 18 (6-14) Blood Urea Nitrogen 78 mg/dL (8-26) 83 mg/dL (8-26) Creatinine 9.3 mg/dL (0.7-1.3) 9.7 mg/dL (0.7-1.3) Estimated GFR (Cockcroft-Gault) 5.6 5.3 BUN/Creatinine Ratio 8 (6-20) 9 (6-20) Glucose Level 253 mg/dL (70-99) 190 mg/dL (70-99) Calcium Level 9.2 mg/dL (8.5-10.1) 9.0 mg/dL (8.5-10.1) Total Bilirubin 0.5 mg/dL (0.2-1.0) 0.5 mg/dL (0.2-1.0) Aspartate Amino Transf (AST/SGOT) 43 U/L (15-37) 47 U/L (15-37) Alanine Aminotransferase (ALT/SGPT) 25 U/L (16-63) 25 U/L (16-63) Alkaline Phosphatase 118 U/L (46-116) 109 U/L (46-116) Troponin I Quantitative 3.681 ng/mL (0.000-0.055) 3.914 ng/mL (0.000-0.055) 4.076 ng/mL (0.000-0.055) XB-Fko-L-Type Natriuretic Peptide > 58184 pg/mL (0-124) Total Protein 6.4 g/dL (6.4-8.2) 6.5 g/dL (6.4-8.2) Albumin 3.0 g/dL (3.4-5.0) 3.0 g/dL (3.4-5.0) Albumin/Globulin Ratio 0.9 (1.0-1.7) 0.9 (1.0-1.7) Heparin Anti-Xa Act, Unfractionated 0.29 IU/mL (0.30-0.70) Triglycerides Level 89 mg/dL (0-150) Cholesterol Level 128 mg/dL (0-200) LDL Cholesterol, Calculated 65 mg/dL (0-100) VLDL Cholesterol, Calculated 18 mg/dL (0-40) Non-HDL Cholesterol Calculated 83 mg/dL (0-129) HDL Cholesterol 45 mg/dL (40-60) Cholesterol/HDL Ratio 2.8 Thyroid Stimulating Hormone (TSH) 4.257 uIU/mL (0.358-3.74) Test 04/10/19 07:18 04/10/19 11:39 Glucose (Fingerstick) 177 mg/dL (70-99) 190 mg/dL (70-99) Images Images AP chest. HISTORY: Short of breath AP view was taken of the chest. There are bilateral hazy diffuse infiltrates or pulmonary edema. The heart does not appear enlarged. There is no definite pleural effusion. IMPRESSION: 1. Hazy bilateral airspace disease from infiltrates or edema. Electronically signed by: Christopher Cortez MD (04/09/2019 10:50 PM) [id number] DICTATED and SIGNED BY: CHRISTOPHER CORTEZ MD VTE Prophylaxis Ordered VTE Prophylaxis Devices: Yes VTE Pharmacological Prophylaxi: Yes Assessment/Plan Assessment/Plan Impression: Acute pulmonary edema CHEST PAIN, UNSTABLE Hazy bilateral airspace disease from infiltrates or edema. Chest pain ACUTE NSTEMI (non-ST elevated myocardial infarction) severe LAD disease and LCx subtotal occlusion (unsuccessful attempt for PCI). RCA was nondominant and patent. poor surgical candidate due to comorbidities ESRD (end stage renal disease) on dialysis ADMITTED [facility] BED CONSULT CARDIOLOGY CONSULT NEPHROLOGY PULM CONSULT dvt prophylaxis 75 min pt exam, chart review, > 50% of time spent with exam, chart review, pt ca re coordination SLAVA SETHI MD Apr 10, 2019 12:15
--- NOTE | 2019-04-10 12:51 | NUR ---
SS following for discharge planning. SS reviewed pt chart. Pt is from [facility], ; fax [phone]. SS contacted [facility] and verified that pt is a skilled rehabilitation resident from there facility. Pt has outpatient dialysis at [facility] on [facility]. PT/OT ordered. Pt will need new referral, acceptance, and insurance authorization prior to returning. SS will continue to follow for discharge planning.
--- NOTE | 2019-04-10 12:51 | PDOC2 ---
CONSULT Date of Consult Date of Consult DATE: 04/10/19 TIME: 12:46 Reason for Consult Reason for Consult: SOB Referring Physician Referring Physician: DHARMESH Identification/Chief Complaint Chief Complaint SOB Source Source: Chart review History of Present Illness Reason for Visit: THIS IS A 73 YR OLD ESRD PT WITH SOB. NOTED TO HAVE CHF ON IMAGING. HAS OP HD ON MWF BUT MISSED HIS LAST 2 TREATMENTS. HAS L ARM AVF. HAS ESRD DUE TO DM II AND HTN RELATED END ORGAN DAMAGE. LABS ARE C/W HIS ESRD. CURRENTLY UNABLE TO GIVE MUCH HX DUE TO NEEDING TO USE BIPAP. NO OTHER HX NOTED Past Medical History Cardiovascular: CAD, CHF, HTN, Hyperlipidemia, Other (PVD) CENTRAL NERVOUS SYSTEM: Dementia Heme/Onc: Anemia NOS Renal/: Chronic renal failure (ESRD ) Endocrine: Diabetes, Hyperparathyroidism Past Surgical History Past Surgical History: Other (left TMA) Family History Family History: High Cholestrol, Hypertension Social History No ALCOHOL: none Drugs: None Current Problem List Problem List Problems Medical Problems: (1) Acute pulmonary edema Status: Acute (2) Chest pain Status: Acute (3) ESRD (end stage renal disease) on dialysis Status: Acute (4) NSTEMI (non-ST elevated myocardial infarction) Status: Acute Current Medications Current Medications Current Medications Albuterol/ Ipratropium (Duoneb) 3 ml 1X ONCE NEB Last administered on 04/09/19at 21:54; Start 04/09/19 at 22:00; Stop 04/09/19 at 22:01; Status DC Morphine Sulfate (Morphine Sulfate) 2 mg 1X ONCE IV ; Start 04/09/19 at 22:30; Stop 04/09/19 at 22:31; Status DC Heparin Sodium (Porcine) (Heparin Sodium) 3,600 unit 1X ONCE IV Last administered on 04/10/19at 00:24; Start 04/09/19 at 23:15; Stop 04/09/19 at 23:16; Status DC Heparin Sodium/ Dextrose 250 ml @ 0 mls/hr CONT PRN IV PER PROTOCOL Last administered on 04/10/19at 00:25; Start 04/09/19 at 23:15 Heparin Sodium (Porcine) (Heparin Sodium) 1,500 unit PRN Q6HRS PRN IV FOR UFH LEVEL LESS THAN 0.2; Start 04/09/19 at 23:15 Ondansetron HCl (Zofran) 4 mg PRN Q8HRS PRN IV NAUSEA/VOMITING; Start 04/09/19 at 23:45; Stop 04/10/19 at 23:44 Acetaminophen (Tylenol) 650 mg PRN Q4HRS PRN PO FEVER; Start 04/09/19 at 23:45; Stop 04/10/19 at 23:44 Nitroglycerin (Nitrostat) 0.4 mg PRN Q5MIN PRN SL CHEST PAIN; Start 04/09/19 at 23:45; Stop 04/10/19 at 23:44 Albuterol/ Ipratropium (Duoneb) 3 ml RTQID NEB Last administered on 04/10/19at 11:59; Start 04/10/19 at 08:00; Stop 04/11/19 at 07:59 Info (Anti-Coagulation Monitoring By Pharmacy) 1 each PRN DAILY PRN MC SEE COMMENTS; Start 04/10/19 at 09:15 Aspirin (Children'S Aspirin) 81 mg DAILY PO ; Start 04/10/19 at 11:00 Atorvastatin Calcium (Lipitor) 40 mg HS PO ; Start 04/10/19 at 21:00 Clopidogrel Bisulfate (Plavix) 75 mg DAILY PO ; Start 04/10/19 at 11:00 Isosorbide Mononitrate (Imdur) 30 mg DAILY PO ; Start 04/10/19 at 11:00 Metoprolol Tartrate (Lopressor) 12.5 mg BID PO ; Start 04/10/19 at 11:00 Active Scripts Active Reported Aspirin 81 Mg Tab.chew 81 Mg PO DAILY Atorvastatin Calcium 40 Mg Tablet 40 Mg PO HS Plavix (Clopidogrel Bisulfate) 75 Mg Tablet 75 Mg PO DAILY Melatonin 3 Mg Tablet 3 Mg PO HS Nephplex Rx Tablet (Vit B Cmplx No3/Fa/C/Biot/Zinc) 1 Each Tablet 1 Tab PO DAILY 30 Days Lantus Solostar (Insulin Glargine,Hum.rec.anlog) 100 Unit/1 Ml Insuln.pen 12 Unit SQ HS Novolog (Insulin Aspart) 100 Unit/1 Ml Vial 3 Unit SQ TIDWMEALS Renvela (Sevelamer Carbonate) 800 Mg Tablet 800 Mg PO TIDWMEALS Senna (Sennosides) 8.8 Mg/5 Ml Syrup 8.8 Mg PO DAILY PRN Allergies Allergies: Coded Allergies: No Known Drug Allergies (Unverified , 04/09/19) ROS General: YES: Fatigue PSYCHOLOGICAL ROS: YES: Depression HEENT: YES: Heacaches Respiratory: YES: Cough, Orthopnea, Shortness of breath Cardiovascular: yes Edema Gastrointestinal: Yes Constipation Genitourinary: YES Other (ANURIA) Musculoskeletal: Yes Muscular Weakness Neurological: Yes Weakness Skin: Yes Dry Skin Physical Exam General: Alert, Oriented X3, Cooperative, mild distress HEENT: Atraumatic, PERRLA Lungs: Other (BASILAR RALES) Heart: Regular rate Abdomen: Normal bowel sounds, Soft, No tenderness Extremities: No cyanosis Skin: No breakdown Neuro: Other (ANXIOUS) Psych/Mental Status: Other (ANXIOUS) MUSCULOSKELETAL: No joint tenderness, No deformity, No swelling Vitals VITALS Vital Signs Date Time Temp Pulse Resp B/P (MAP) Pulse Ox O2 Delivery O2 Flow Rate FiO2 04/10/19 11:52 100 AVAPS 04/10/19 10:53 98.8 96 22 143/77 (99) 98.8 04/10/19 07:50 15.0 Labs Labs Laboratory Tests Test 04/09/19 22:10 04/09/19 22:43 04/10/19 03:00 04/10/19 06:50 O2 Saturation 96 % (92-99) Arterial Blood pH 7.44 (7.35-7.45) Arterial Blood pCO2 at Patient Temp 34 mmHg (35-46) Arterial Blood pO2 at Patient Temp 91 mmHg (65-108) Arterial Blood HCO3 22 mmol/L (21-28) Arterial Blood Base Excess -1 mmol/L (-3-3) FiO2 80 White Blood Count 12.5 x10^3/uL (4.0-11.0) 10.7 x10^3/uL (4.0-11.0) Red Blood Count 3.64 x10^6/uL (4.30-5.70) 3.71 x10^6/uL (4.30-5.70) Hemoglobin 10.8 g/dL (13.0-17.5) 11.1 g/dL (13.0-17.5) Hematocrit 32.5 % (39.0-53.0) 33.5 % (39.0-53.0) Mean Corpuscular Volume 89 fL (79-100) 90 fL (79-100) Mean Corpuscular Hemoglobin 30 pg (25-35) 30 pg (25-35) Mean Corpuscular Hemoglobin Concent 33 g/dL (31-37) 33 g/dL (31-37) Red Cell Distribution Width 21.2 % (11.5-14.5) 21.2 % (11.5-14.5) Platelet Count 104 x10^3/uL (140-400) 100 x10^3/uL (140-400) Neutrophils (%) (Auto) 90 % (31-73) 85 % (31-73) Lymphocytes (%) (Auto) 4 % (24-48) 8 % (24-48) Monocytes (%) (Auto) 5 % (0-9) 6 % (0-9) Eosinophils (%) (Auto) 1 % (0-3) 0 % (0-3) Basophils (%) (Auto) 1 % (0-3) 0 % (0-3) Neutrophils # (Auto) 11.2 x10^3/uL (1.8-7.7) 9.2 x10^3/uL (1.8-7.7) Lymphocytes # (Auto) 0.5 x10^3/uL (1.0-4.8) 0.8 x10^3/uL (1.0-4.8) Monocytes # (Auto) 0.6 x10^3/uL (0.0-1.1) 0.6 x10^3/uL (0.0-1.1) Eosinophils # (Auto) 0.1 x10^3/uL (0.0-0.7) 0.0 x10^3/uL (0.0-0.7) Basophils # (Auto) 0.1 x10^3/uL (0.0-0.2) 0.0 x10^3/uL (0.0-0.2) Segmented Neutrophils % 88 % (35-66) Lymphocytes % 4 % (24-48) Monocytes % 5 % (0-10) Eosinophils % 3 % (0-5) Platelet Estimate Decreased (ADEQUATE) Polychromasia Slight Anisocytosis Mod Ovalocytes Few Sodium Level 138 mmol/L (136-145) 139 mmol/L (136-145) Potassium Level 4.8 mmol/L (3.5-5.1) 4.7 mmol/L (3.5-5.1) Chloride Level 96 mmol/L (98-107) 97 mmol/L (98-107) Carbon Dioxide Level 25 mmol/L (21-32) 24 mmol/L (21-32) Anion Gap 17 (6-14) 18 (6-14) Blood Urea Nitrogen 78 mg/dL (8-26) 83 mg/dL (8-26) Creatinine 9.3 mg/dL (0.7-1.3) 9.7 mg/dL (0.7-1.3) Estimated GFR (Cockcroft-Gault) 5.6 5.3 BUN/Creatinine Ratio 8 (6-20) 9 (6-20) Glucose Level 253 mg/dL (70-99) 190 mg/dL (70-99) Calcium Level 9.2 mg/dL (8.5-10.1) 9.0 mg/dL (8.5-10.1) Total Bilirubin 0.5 mg/dL (0.2-1.0) 0.5 mg/dL (0.2-1.0) Aspartate Amino Transf (AST/SGOT) 43 U/L (15-37) 47 U/L (15-37) Alanine Aminotransferase (ALT/SGPT) 25 U/L (16-63) 25 U/L (16-63) Alkaline Phosphatase 118 U/L (46-116) 109 U/L (46-116) Troponin I Quantitative 3.681 ng/mL (0.000-0.055) 3.914 ng/mL (0.000-0.055) 4.076 ng/mL (0.000-0.055) EA-Zmz-Z-Type Natriuretic Peptide > 85914 pg/mL (0-124) Total Protein 6.4 g/dL (6.4-8.2) 6.5 g/dL (6.4-8.2) Albumin 3.0 g/dL (3.4-5.0) 3.0 g/dL (3.4-5.0) Albumin/Globulin Ratio 0.9 (1.0-1.7) 0.9 (1.0-1.7) Heparin Anti-Xa Act, Unfractionated 0.29 IU/mL (0.30-0.70) Triglycerides Level 89 mg/dL (0-150) Cholesterol Level 128 mg/dL (0-200) LDL Cholesterol, Calculated 65 mg/dL (0-100) VLDL Cholesterol, Calculated 18 mg/dL (0-40) Non-HDL Cholesterol Calculated 83 mg/dL (0-129) HDL Cholesterol 45 mg/dL (40-60) Cholesterol/HDL Ratio 2.8 Thyroid Stimulating Hormone (TSH) 4.257 uIU/mL (0.358-3.74) Test 04/10/19 07:18 04/10/19 11:39 Glucose (Fingerstick) 177 mg/dL (70-99) 190 mg/dL (70-99) Laboratory Tests Test 04/09/19 22:10 04/09/19 22:43 04/10/19 03:00 04/10/19 06:50 O2 Saturation 96 % (92-99) Arterial Blood pH 7.44 (7.35-7.45) Arterial Blood pCO2 at Patient Temp 34 mmHg (35-46) Arterial Blood pO2 at Patient Temp 91 mmHg (65-108) Arterial Blood HCO3 22 mmol/L (21-28) Arterial Blood Base Excess -1 mmol/L (-3-3) FiO2 80 White Blood Count 12.5 x10^3/uL (4.0-11.0) 10.7 x10^3/uL (4.0-11.0) Red Blood Count 3.64 x10^6/uL (4.30-5.70) 3.71 x10^6/uL (4.30-5.70) Hemoglobin 10.8 g/dL (13.0-17.5) 11.1 g/dL (13.0-17.5) Hematocrit 32.5 % (39.0-53.0) 33.5 % (39.0-53.0) Mean Corpuscular Volume 89 fL (79-100) 90 fL (79-100) Mean Corpuscular Hemoglobin 30 pg (25-35) 30 pg (25-35) Mean Corpuscular Hemoglobin Concent 33 g/dL (31-37) 33 g/dL (31-37) Red Cell Distribution Width 21.2 % (11.5-14.5) 21.2 % (11.5-14.5) Platelet Count 104 x10^3/uL (140-400) 100 x10^3/uL (140-400) Neutrophils (%) (Auto) 90 % (31-73) 85 % (31-73) Lymphocytes (%) (Auto) 4 % (24-48) 8 % (24-48) Monocytes (%) (Auto) 5 % (0-9) 6 % (0-9) Eosinophils (%) (Auto) 1 % (0-3) 0 % (0-3) Basophils (%) (Auto) 1 % (0-3) 0 % (0-3) Neutrophils # (Auto) 11.2 x10^3/uL (1.8-7.7) 9.2 x10^3/uL (1.8-7.7) Lymphocytes # (Auto) 0.5 x10^3/uL (1.0-4.8) 0.8 x10^3/uL (1.0-4.8) Monocytes # (Auto) 0.6 x10^3/uL (0.0-1.1) 0.6 x10^3/uL (0.0-1.1) Eosinophils # (Auto) 0.1 x10^3/uL (0.0-0.7) 0.0 x10^3/uL (0.0-0.7) Basophils # (Auto) 0.1 x10^3/uL (0.0-0.2) 0.0 x10^3/uL (0.0-0.2) Segmented Neutrophils % 88 % (35-66) Lymphocytes % 4 % (24-48) Monocytes % 5 % (0-10) Eosinophils % 3 % (0-5) Platelet Estimate Decreased (ADEQUATE) Polychromasia Slight Anisocytosis Mod Ovalocytes Few Sodium Level 138 mmol/L (136-145) 139 mmol/L (136-145) Potassium Level 4.8 mmol/L (3.5-5.1) 4.7 mmol/L (3.5-5.1) Chloride Level 96 mmol/L (98-107) 97 mmol/L (98-107) Carbon Dioxide Level 25 mmol/L (21-32) 24 mmol/L (21-32) Anion Gap 17 (6-14) 18 (6-14) Blood Urea Nitrogen 78 mg/dL (8-26) 83 mg/dL (8-26) Creatinine 9.3 mg/dL (0.7-1.3) 9.7 mg/dL (0.7-1.3) Estimated GFR (Cockcroft-Gault) 5.6 5.3 BUN/Creatinine Ratio 8 (6-20) 9 (6-20) Glucose Level 253 mg/dL (70-99) 190 mg/dL (70-99) Calcium Level 9.2 mg/dL (8.5-10.1) 9.0 mg/dL (8.5-10.1) Total Bilirubin 0.5 mg/dL (0.2-1.0) 0.5 mg/dL (0.2-1.0) Aspartate Amino Transf (AST/SGOT) 43 U/L (15-37) 47 U/L (15-37) Alanine Aminotransferase (ALT/SGPT) 25 U/L (16-63) 25 U/L (16-63) Alkaline Phosphatase 118 U/L (46-116) 109 U/L (46-116) Troponin I Quantitative 3.681 ng/mL (0.000-0.055) 3.914 ng/mL (0.000-0.055) 4.076 ng/mL (0.000-0.055) IZ-Vle-X-Type Natriuretic Peptide > 95965 pg/mL (0-124) Total Protein 6.4 g/dL (6.4-8.2) 6.5 g/dL (6.4-8.2) Albumin 3.0 g/dL (3.4-5.0) 3.0 g/dL (3.4-5.0) Albumin/Globulin Ratio 0.9 (1.0-1.7) 0.9 (1.0-1.7) Heparin Anti-Xa Act, Unfractionated 0.29 IU/mL (0.30-0.70) Triglycerides Level 89 mg/dL (0-150) Cholesterol Level 128 mg/dL (0-200) LDL Cholesterol, Calculated 65 mg/dL (0-100) VLDL Cholesterol, Calculated 18 mg/dL (0-40) Non-HDL Cholesterol Calculated 83 mg/dL (0-129) HDL Cholesterol 45 mg/dL (40-60) Cholesterol/HDL Ratio 2.8 Thyroid Stimulating Hormone (TSH) 4.257 uIU/mL (0.358-3.74) Test 04/10/19 07:18 04/10/19 11:39 Glucose (Fingerstick) 177 mg/dL (70-99) 190 mg/dL (70-99) Assessment/Plan Assessment/Plan IMP ESRD ANEMIA ACUTE HYPOXIC RESP FAILURE ACUTE ON CHRONIC D CHF PLAN HD TODAY UF TO DW SUPPLEMENT O2 AND BIPAP ANETA WHEN NEEDED ENC COMPLIANCE LISA LAEHY MD Apr 10, 2019 12:51
--- NOTE | 2019-04-10 13:26 | CARD ---
MR#: [id number] Date of Study: 04/10/2019 Ordering Physician: CARLINE GARCIA, Referring Physician: CARLINE GARCIA, Tech: Petty Mace RDCS APPROVED REPORT EXAM: LIMITED Two-dimensional and M-mode echocardiogram. Other Information Quality : Technically LimitedHR: 98bpm Technically limited study due to inability to position patient and COPD INDICATION Chest Pain Limited 2D echo to assess LV function. RISK FACTORS Hypertension Hyperlipidemia CAD, CHF 2D DIMENSIONS RVDd2.0 (2.9-3.5cm)Left Atrium(2D)2.8 (1.6-4.0cm) IVSd0.6 (0.7-1.1cm)Aortic Root(2D)3.0 (2.0-3.7cm) LVDd5.1 (3.9-5.9cm)LVOT Diameter1.8 (1.8-2.4cm) PWd0.8 (0.7-1.1cm)LVDs4.9 (2.5-4.0cm) FS (%) 2.6 %SV7.2 ml LVEF(%)5.9 (>50%) LEFT VENTRICLE The left ventricle is upper limits of normal size. There is normal left ventricular wall thickness. T he ejection fraction is severely impaired. The Ejection Fraction is 20-25%. There is global hypokines is of the left ventricle. RIGHT VENTRICLE The right ventricle is normal size. The right ventricular systolic function appears normal. AORTIC VALVE Aortic valve appears severely calcified. Not evaluated on this limited study. GREAT VESSELS The aortic root is normal in size. PERICARDIAL EFFUSION There is moderate to large left pleural effusion visualized. There is a small anterior pericardial ef fusion. <Conclusion> The ejection fraction is severely impaired. The Ejection Fraction is 20-25%. There is global hypokinesis of the left ventricle. Aortic valve appears severely calcified. Not evaluated on this limited study. There is a small anterior pericardial effusion. There is moderate to large left pleural effusion visualized. Signed by : Elie Araujo, Electronically Approved : 04/10/2019 13:26:27
[2019-04-10] MEDS ORDERED: DIALYSIS PATIENT. MC PRN ×4 (15:15→16:00)
--- NOTE | 2019-04-10 16:34 | PDOC ---
PULMONARY PROGRESS NOTES Vitals Vital Signs Date Time Temp Pulse Resp B/P (MAP) Pulse Ox O2 Delivery O2 Flow Rate FiO2 04/10/19 13:40 94 Nasal Cannula 3.0 04/10/19 10:53 98.8 96 22 143/77 (99) 98.8 Labs Laboratory Tests Test 04/09/19 22:10 04/09/19 22:43 04/10/19 03:00 04/10/19 06:50 O2 Saturation 96 % (92-99) Arterial Blood pH 7.44 (7.35-7.45) Arterial Blood pCO2 at Patient Temp 34 mmHg (35-46) Arterial Blood pO2 at Patient Temp 91 mmHg (65-108) Arterial Blood HCO3 22 mmol/L (21-28) Arterial Blood Base Excess -1 mmol/L (-3-3) FiO2 80 White Blood Count 12.5 x10^3/uL (4.0-11.0) 10.7 x10^3/uL (4.0-11.0) Red Blood Count 3.64 x10^6/uL (4.30-5.70) 3.71 x10^6/uL (4.30-5.70) Hemoglobin 10.8 g/dL (13.0-17.5) 11.1 g/dL (13.0-17.5) Hematocrit 32.5 % (39.0-53.0) 33.5 % (39.0-53.0) Mean Corpuscular Volume 89 fL (79-100) 90 fL (79-100) Mean Corpuscular Hemoglobin 30 pg (25-35) 30 pg (25-35) Mean Corpuscular Hemoglobin Concent 33 g/dL (31-37) 33 g/dL (31-37) Red Cell Distribution Width 21.2 % (11.5-14.5) 21.2 % (11.5-14.5) Platelet Count 104 x10^3/uL (140-400) 100 x10^3/uL (140-400) Neutrophils (%) (Auto) 90 % (31-73) 85 % (31-73) Lymphocytes (%) (Auto) 4 % (24-48) 8 % (24-48) Monocytes (%) (Auto) 5 % (0-9) 6 % (0-9) Eosinophils (%) (Auto) 1 % (0-3) 0 % (0-3) Basophils (%) (Auto) 1 % (0-3) 0 % (0-3) Neutrophils # (Auto) 11.2 x10^3/uL (1.8-7.7) 9.2 x10^3/uL (1.8-7.7) Lymphocytes # (Auto) 0.5 x10^3/uL (1.0-4.8) 0.8 x10^3/uL (1.0-4.8) Monocytes # (Auto) 0.6 x10^3/uL (0.0-1.1) 0.6 x10^3/uL (0.0-1.1) Eosinophils # (Auto) 0.1 x10^3/uL (0.0-0.7) 0.0 x10^3/uL (0.0-0.7) Basophils # (Auto) 0.1 x10^3/uL (0.0-0.2) 0.0 x10^3/uL (0.0-0.2) Segmented Neutrophils % 88 % (35-66) Lymphocytes % 4 % (24-48) Monocytes % 5 % (0-10) Eosinophils % 3 % (0-5) Platelet Estimate Decreased (ADEQUATE) Polychromasia Slight Anisocytosis Mod Ovalocytes Few Sodium Level 138 mmol/L (136-145) 139 mmol/L (136-145) Potassium Level 4.8 mmol/L (3.5-5.1) 4.7 mmol/L (3.5-5.1) Chloride Level 96 mmol/L (98-107) 97 mmol/L (98-107) Carbon Dioxide Level 25 mmol/L (21-32) 24 mmol/L (21-32) Anion Gap 17 (6-14) 18 (6-14) Blood Urea Nitrogen 78 mg/dL (8-26) 83 mg/dL (8-26) Creatinine 9.3 mg/dL (0.7-1.3) 9.7 mg/dL (0.7-1.3) Estimated GFR (Cockcroft-Gault) 5.6 5.3 BUN/Creatinine Ratio 8 (6-20) 9 (6-20) Glucose Level 253 mg/dL (70-99) 190 mg/dL (70-99) Calcium Level 9.2 mg/dL (8.5-10.1) 9.0 mg/dL (8.5-10.1) Total Bilirubin 0.5 mg/dL (0.2-1.0) 0.5 mg/dL (0.2-1.0) Aspartate Amino Transf (AST/SGOT) 43 U/L (15-37) 47 U/L (15-37) Alanine Aminotransferase (ALT/SGPT) 25 U/L (16-63) 25 U/L (16-63) Alkaline Phosphatase 118 U/L (46-116) 109 U/L (46-116) Troponin I Quantitative 3.681 ng/mL (0.000-0.055) 3.914 ng/mL (0.000-0.055) 4.076 ng/mL (0.000-0.055) AI-Wpv-N-Type Natriuretic Peptide > 58746 pg/mL (0-124) Total Protein 6.4 g/dL (6.4-8.2) 6.5 g/dL (6.4-8.2) Albumin 3.0 g/dL (3.4-5.0) 3.0 g/dL (3.4-5.0) Albumin/Globulin Ratio 0.9 (1.0-1.7) 0.9 (1.0-1.7) Heparin Anti-Xa Act, Unfractionated 0.29 IU/mL (0.30-0.70) Triglycerides Level 89 mg/dL (0-150) Cholesterol Level 128 mg/dL (0-200) LDL Cholesterol, Calculated 65 mg/dL (0-100) VLDL Cholesterol, Calculated 18 mg/dL (0-40) Non-HDL Cholesterol Calculated 83 mg/dL (0-129) HDL Cholesterol 45 mg/dL (40-60) Cholesterol/HDL Ratio 2.8 Thyroid Stimulating Hormone (TSH) 4.257 uIU/mL (0.358-3.74) Test 04/10/19 07:18 04/10/19 11:39 04/10/19 12:13 04/10/19 15:00 Glucose (Fingerstick) 177 mg/dL (70-99) 190 mg/dL (70-99) Troponin I Quantitative 3.689 ng/mL (0.000-0.055) Heparin Anti-Xa Act, Unfractionated 0.22 IU/mL (0.30-0.70) Laboratory Tests Test 04/09/19 22:10 04/09/19 22:43 04/10/19 03:00 04/10/19 06:50 O2 Saturation 96 % (92-99) Arterial Blood pH 7.44 (7.35-7.45) Arterial Blood pCO2 at Patient Temp 34 mmHg (35-46) Arterial Blood pO2 at Patient Temp 91 mmHg (65-108) Arterial Blood HCO3 22 mmol/L (21-28) Arterial Blood Base Excess -1 mmol/L (-3-3) FiO2 80 White Blood Count 12.5 x10^3/uL (4.0-11.0) 10.7 x10^3/uL (4.0-11.0) Red Blood Count 3.64 x10^6/uL (4.30-5.70) 3.71 x10^6/uL (4.30-5.70) Hemoglobin 10.8 g/dL (13.0-17.5) 11.1 g/dL (13.0-17.5) Hematocrit 32.5 % (39.0-53.0) 33.5 % (39.0-53.0) Mean Corpuscular Volume 89 fL (79-100) 90 fL (79-100) Mean Corpuscular Hemoglobin 30 pg (25-35) 30 pg (25-35) Mean Corpuscular Hemoglobin Concent 33 g/dL (31-37) 33 g/dL (31-37) Red Cell Distribution Width 21.2 % (11.5-14.5) 21.2 % (11.5-14.5) Platelet Count 104 x10^3/uL (140-400) 100 x10^3/uL (140-400) Neutrophils (%) (Auto) 90 % (31-73) 85 % (31-73) Lymphocytes (%) (Auto) 4 % (24-48) 8 % (24-48) Monocytes (%) (Auto) 5 % (0-9) 6 % (0-9) Eosinophils (%) (Auto) 1 % (0-3) 0 % (0-3) Basophils (%) (Auto) 1 % (0-3) 0 % (0-3) Neutrophils # (Auto) 11.2 x10^3/uL (1.8-7.7) 9.2 x10^3/uL (1.8-7.7) Lymphocytes # (Auto) 0.5 x10^3/uL (1.0-4.8) 0.8 x10^3/uL (1.0-4.8) Monocytes # (Auto) 0.6 x10^3/uL (0.0-1.1) 0.6 x10^3/uL (0.0-1.1) Eosinophils # (Auto) 0.1 x10^3/uL (0.0-0.7) 0.0 x10^3/uL (0.0-0.7) Basophils # (Auto) 0.1 x10^3/uL (0.0-0.2) 0.0 x10^3/uL (0.0-0.2) Segmented Neutrophils % 88 % (35-66) Lymphocytes % 4 % (24-48) Monocytes % 5 % (0-10) Eosinophils % 3 % (0-5) Platelet Estimate Decreased (ADEQUATE) Polychromasia Slight Anisocytosis Mod Ovalocytes Few Sodium Level 138 mmol/L (136-145) 139 mmol/L (136-145) Potassium Level 4.8 mmol/L (3.5-5.1) 4.7 mmol/L (3.5-5.1) Chloride Level 96 mmol/L (98-107) 97 mmol/L (98-107) Carbon Dioxide Level 25 mmol/L (21-32) 24 mmol/L (21-32) Anion Gap 17 (6-14) 18 (6-14) Blood Urea Nitrogen 78 mg/dL (8-26) 83 mg/dL (8-26) Creatinine 9.3 mg/dL (0.7-1.3) 9.7 mg/dL (0.7-1.3) Estimated GFR (Cockcroft-Gault) 5.6 5.3 BUN/Creatinine Ratio 8 (6-20) 9 (6-20) Glucose Level 253 mg/dL (70-99) 190 mg/dL (70-99) Calcium Level 9.2 mg/dL (8.5-10.1) 9.0 mg/dL (8.5-10.1) Total Bilirubin 0.5 mg/dL (0.2-1.0) 0.5 mg/dL (0.2-1.0) Aspartate Amino Transf (AST/SGOT) 43 U/L (15-37) 47 U/L (15-37) Alanine Aminotransferase (ALT/SGPT) 25 U/L (16-63) 25 U/L (16-63) Alkaline Phosphatase 118 U/L (46-116) 109 U/L (46-116) Troponin I Quantitative 3.681 ng/mL (0.000-0.055) 3.914 ng/mL (0.000-0.055) 4.076 ng/mL (0.000-0.055) AE-Stb-P-Type Natriuretic Peptide > 46210 pg/mL (0-124) Total Protein 6.4 g/dL (6.4-8.2) 6.5 g/dL (6.4-8.2) Albumin 3.0 g/dL (3.4-5.0) 3.0 g/dL (3.4-5.0) Albumin/Globulin Ratio 0.9 (1.0-1.7) 0.9 (1.0-1.7) Heparin Anti-Xa Act, Unfractionated 0.29 IU/mL (0.30-0.70) Triglycerides Level 89 mg/dL (0-150) Cholesterol Level 128 mg/dL (0-200) LDL Cholesterol, Calculated 65 mg/dL (0-100) VLDL Cholesterol, Calculated 18 mg/dL (0-40) Non-HDL Cholesterol Calculated 83 mg/dL (0-129) HDL Cholesterol 45 mg/dL (40-60) Cholesterol/HDL Ratio 2.8 Thyroid Stimulating Hormone (TSH) 4.257 uIU/mL (0.358-3.74) Test 04/10/19 07:18 04/10/19 11:39 04/10/19 12:13 04/10/19 15:00 Glucose (Fingerstick) 177 mg/dL (70-99) 190 mg/dL (70-99) Troponin I Quantitative 3.689 ng/mL (0.000-0.055) Heparin Anti-Xa Act, Unfractionated 0.22 IU/mL (0.30-0.70) Medications Active Scripts Medications Dose Route/Sig Max Daily Dose Days Date Category Aspirin 81 Mg Tab.chew 81 Mg PO DAILY 04/10/19 Reported Atorvastatin Calcium 40 Mg Tablet 40 Mg PO HS 04/10/19 Reported Plavix (Clopidogrel Bisulfate) 75 Mg Tablet 75 Mg PO DAILY 04/10/19 Reported Melatonin 3 Mg Tablet 3 Mg PO HS 04/10/19 Reported Nephplex Rx Tablet (Vit B Cmplx No3/Fa/C/Biot/Zinc) 1 Each Tablet 1 Tab PO DAILY 30 04/10/19 Reported Lantus Solostar (Insulin Glargine,Hum.rec.anlog) 100 Unit/1 Ml Insuln.pen 12 Unit SQ HS 04/10/19 Reported Novolog (Insulin Aspart) 100 Unit/1 Ml Vial 3 Unit SQ TIDWMEALS 04/10/19 Reported Renvela (Sevelamer Carbonate) 800 Mg Tablet 800 Mg PO TIDWMEALS 04/10/19 Reported Senna (Sennosides) 8.8 Mg/5 Ml Syrup 8.8 Mg PO DAILY PRN 04/10/19 Reported Impression . ACUTE RESP FAILURE SEC TO ACUTE PULMONARY EDEMA AGREE WITH CURRENT RX NO NEED FOR ANTIBX THANKS SINCERE GARCES MD Apr 10, 2019 16:34
--- NOTE | 2019-04-10 16:45 | NUR ---
Wound Care: Attempted to see patient regarding wound care. patient off unit in dialysis at this time. Will see patient tomorrow.
[2019-04-10] MEDS ORDERED: ALBUTEROL SULFATE 2.5 MG/3 ML NEBU. INH PRN (17:45)
[2019-04-10] MEDS ORDERED: CONTRAST GIVEN. MC PRN (18:00)
[2019-04-10] MEDS: ISOSORBIDE MONONITRATE ER 30 MG TAB.ER.24H PO SCH (18:20)
[2019-04-10] MEDS: LISINOPRIL 5 MG TABLET. PO SCH (18:20)
[2019-04-10] MEDS: CLOPIDOGREL BISULFATE 75 MG TABLET PO SCH (18:20)
[2019-04-10] MEDS: ASPIRIN CHEWABLE 81 MG TABLET. PO SCH (18:20)
[2019-04-10 19:15] VITALS: BP 121/68
[2019-04-10] MEDS: ATORVASTATIN CALCIUM 40 MG TABLET. PO SCH (20:03)
[2019-04-10] MEDS: MORPHINE SULFATE 2 MG/ML VIAL. IV PRN (20:04)
[2019-04-10] MEDS: HEPARIN for IV BOLUS 10,000 UNIT/10 ML VIAL. IV PRN (23:30)
[2019-04-10 23:41] VITALS: BP 96/51
--- NOTE | 2019-04-11 02:41 | CONS ---
DATE OF CONSULTATION: 04/10/2019 ATTENDING PHYSICIAN: Robbin Bateman MD REASON FOR CONSULTATION: The patient seen in pulmonary consultation at the request of Dr. Bateman for abnormal x-ray, increasing shortness of air. HISTORY OF PRESENT ILLNESS: The patient is a 73-year-old with end-stage renal disease, presenting with increasing shortness of air. He has a prior ejection fraction 20-25%. Chest x-ray revealed some perihilar infiltrates compatible with acute CHF. I was asked to see him in consultation. The patient normally does not wear oxygen at his place of residence. He does undergo outpatient hemodialysis Monday, Monday and Monday, but missed the last 2 treatments. He has a history of type 2 diabetes, hypertension, and end-organ damage. He is status post amputation of the left toes. He was initially on BiPAP for extreme shortness of air. He is currently off of BiPAP. I did visit with him in the hemodialysis suite. He is awake, alert, following commands. He has a cough, mostly nonproductive. He states that he has never smoked. PAST MEDICAL HISTORY: Coronary artery disease, chronic heart failure, hypertension, hyperlipidemia, cardiomyopathy, ejection fraction 20-25%, end-stage renal disease, diabetes, hyperparathyroidism. He has had previous cardiac catheterization back in 11/19/2018 revealing moderate to severe disease involving the left anterior descending artery and severe subtotal occlusion of the circumflex. PAST SURGICAL HISTORY: As above. ALLERGIES: No known drug allergies. SOCIAL HISTORY: [facility]. Denies any tobacco use. REVIEW OF SYSTEMS: As indicated above, otherwise, a 10-point system was reviewed and negative. CONSTITUTIONAL: No fever or chills. EYES: No change in visual acuity. HENT: No nasal congestion or sore throat. PULMONARY: As indicated above. CARDIOVASCULAR: No chest pain. No pressure. GASTROINTESTINAL: No nausea, vomiting, diarrhea. GENITOURINARY: He has no symptoms. MUSCULOSKELETAL: No localized muscle aches or joint pains. SKIN: No new skin rashes. NEUROLOGIC: No headaches, diplopia or blurred vision. MEDICATION: His medications list was reviewed. PHYSICAL EXAMINATION: GENERAL: The patient appeared to be older than stated age. VITAL SIGNS: Stable. O2 saturation was greater than 92%, currently on 3 liters. At one point, he required 15 liters. HEENT: Eyes, the sclerae were nonicteric. NECK: Jugular venous distention was not elevated. No lymphadenopathy. CHEST: Full expansion. LUNGS: Adequate flow, no wheezes. CARDIOVASCULAR: Regular rate and rhythm with S1, S2, no S3. ABDOMEN: Soft, nontender, nondistended. EXTREMITIES: No clubbing or cyanosis. Evidence of previous toe amputation on the left. NEUROLOGICAL: The patient was awake, alert, following commands. A detailed neuro exam was not performed. LABORATORY DATA: Arterial blood gas; pH of 7.44, PaCO2 of 34, pO2 of 91 on BiPAP. White count was initially normal down to 10.7. Troponin was elevated. IMPRESSION: 1. Acute hypoxemic respiratory failure. 2. Acute on chronic systolic heart failure. 3. End-stage renal disease. 4. Cardiomyopathy with decreased ejection fraction. 5. Non-ST segment elevation myocardial infarction. 6. Moderate to severe coronary artery disease. 7. Hypertension. 8. End-stage renal disease, on hemodialysis. PLAN: 1. I recommend continue negative fluid balance with hemodialysis. 2. Consult Cardiology, already performed. 3. No need for antibiotics. 4. P.r.n. nebulized treatments. 5. P.r.n. BiPAP. I do appreciate the privilege in sharing in the patient's care. SINCERE GARCES MD DR: HILDA/rain JOB#: [id number] / [id number]
[2019-04-11 03:26] VITALS: BP 99/57
[2019-04-11 07:25] VITALS: BP 100/58
[2019-04-11] MEDS: IPRATRPIUM/ALBUTEROL 0.5/2.5MG 3 ML NEBU. NEB SCH ×3 (08:10→19:57)
--- NOTE | 2019-04-11 08:42 | PDOC ---
PULMONARY PROGRESS NOTES Subjective PT LESS SOA ON NC MISSED 2 DAYS OF HD Vitals Vital Signs Date Time Temp Pulse Resp B/P (MAP) Pulse Ox O2 Delivery O2 Flow Rate FiO2 04/11/19 08:10 98 Nasal Cannula 2.0 04/11/19 07:25 98.0 81 20 100/58 (72) 98.0 ROS: No Nausea, No Chest Pain, No Abdominal Pain, No Increase Cough General: Alert Lungs: Crackles Cardiovascular: S1 Abdomen: Soft, Non-tender Neuro Exam: Alert Extremities: No Edema Skin: Warm Labs Laboratory Tests Test 04/09/19 22:10 04/09/19 22:43 04/10/19 03:00 04/10/19 06:50 O2 Saturation 96 % (92-99) Arterial Blood pH 7.44 (7.35-7.45) Arterial Blood pCO2 at Patient Temp 34 mmHg (35-46) Arterial Blood pO2 at Patient Temp 91 mmHg (65-108) Arterial Blood HCO3 22 mmol/L (21-28) Arterial Blood Base Excess -1 mmol/L (-3-3) FiO2 80 White Blood Count 12.5 x10^3/uL (4.0-11.0) 10.7 x10^3/uL (4.0-11.0) Red Blood Count 3.64 x10^6/uL (4.30-5.70) 3.71 x10^6/uL (4.30-5.70) Hemoglobin 10.8 g/dL (13.0-17.5) 11.1 g/dL (13.0-17.5) Hematocrit 32.5 % (39.0-53.0) 33.5 % (39.0-53.0) Mean Corpuscular Volume 89 fL (79-100) 90 fL (79-100) Mean Corpuscular Hemoglobin 30 pg (25-35) 30 pg (25-35) Mean Corpuscular Hemoglobin Concent 33 g/dL (31-37) 33 g/dL (31-37) Red Cell Distribution Width 21.2 % (11.5-14.5) 21.2 % (11.5-14.5) Platelet Count 104 x10^3/uL (140-400) 100 x10^3/uL (140-400) Neutrophils (%) (Auto) 90 % (31-73) 85 % (31-73) Lymphocytes (%) (Auto) 4 % (24-48) 8 % (24-48) Monocytes (%) (Auto) 5 % (0-9) 6 % (0-9) Eosinophils (%) (Auto) 1 % (0-3) 0 % (0-3) Basophils (%) (Auto) 1 % (0-3) 0 % (0-3) Neutrophils # (Auto) 11.2 x10^3/uL (1.8-7.7) 9.2 x10^3/uL (1.8-7.7) Lymphocytes # (Auto) 0.5 x10^3/uL (1.0-4.8) 0.8 x10^3/uL (1.0-4.8) Monocytes # (Auto) 0.6 x10^3/uL (0.0-1.1) 0.6 x10^3/uL (0.0-1.1) Eosinophils # (Auto) 0.1 x10^3/uL (0.0-0.7) 0.0 x10^3/uL (0.0-0.7) Basophils # (Auto) 0.1 x10^3/uL (0.0-0.2) 0.0 x10^3/uL (0.0-0.2) Segmented Neutrophils % 88 % (35-66) Lymphocytes % 4 % (24-48) Monocytes % 5 % (0-10) Eosinophils % 3 % (0-5) Platelet Estimate Decreased (ADEQUATE) Polychromasia Slight Anisocytosis Mod Ovalocytes Few Sodium Level 138 mmol/L (136-145) 139 mmol/L (136-145) Potassium Level 4.8 mmol/L (3.5-5.1) 4.7 mmol/L (3.5-5.1) Chloride Level 96 mmol/L (98-107) 97 mmol/L (98-107) Carbon Dioxide Level 25 mmol/L (21-32) 24 mmol/L (21-32) Anion Gap 17 (6-14) 18 (6-14) Blood Urea Nitrogen 78 mg/dL (8-26) 83 mg/dL (8-26) Creatinine 9.3 mg/dL (0.7-1.3) 9.7 mg/dL (0.7-1.3) Estimated GFR (Cockcroft-Gault) 5.6 5.3 BUN/Creatinine Ratio 8 (6-20) 9 (6-20) Glucose Level 253 mg/dL (70-99) 190 mg/dL (70-99) Calcium Level 9.2 mg/dL (8.5-10.1) 9.0 mg/dL (8.5-10.1) Total Bilirubin 0.5 mg/dL (0.2-1.0) 0.5 mg/dL (0.2-1.0) Aspartate Amino Transf (AST/SGOT) 43 U/L (15-37) 47 U/L (15-37) Alanine Aminotransferase (ALT/SGPT) 25 U/L (16-63) 25 U/L (16-63) Alkaline Phosphatase 118 U/L (46-116) 109 U/L (46-116) Troponin I Quantitative 3.681 ng/mL (0.000-0.055) 3.914 ng/mL (0.000-0.055) 4.076 ng/mL (0.000-0.055) JU-Tnu-F-Type Natriuretic Peptide > 75832 pg/mL (0-124) Total Protein 6.4 g/dL (6.4-8.2) 6.5 g/dL (6.4-8.2) Albumin 3.0 g/dL (3.4-5.0) 3.0 g/dL (3.4-5.0) Albumin/Globulin Ratio 0.9 (1.0-1.7) 0.9 (1.0-1.7) Heparin Anti-Xa Act, Unfractionated 0.29 IU/mL (0.30-0.70) Triglycerides Level 89 mg/dL (0-150) Cholesterol Level 128 mg/dL (0-200) LDL Cholesterol, Calculated 65 mg/dL (0-100) VLDL Cholesterol, Calculated 18 mg/dL (0-40) Non-HDL Cholesterol Calculated 83 mg/dL (0-129) HDL Cholesterol 45 mg/dL (40-60) Cholesterol/HDL Ratio 2.8 Thyroid Stimulating Hormone (TSH) 4.257 uIU/mL (0.358-3.74) Test 04/10/19 07:18 04/10/19 11:39 04/10/19 12:13 04/10/19 15:00 Glucose (Fingerstick) 177 mg/dL (70-99) 190 mg/dL (70-99) Troponin I Quantitative 3.689 ng/mL (0.000-0.055) Heparin Anti-Xa Act, Unfractionated 0.22 IU/mL (0.30-0.70) Test 04/10/19 17:53 04/10/19 20:44 04/10/19 22:08 04/11/19 05:00 Glucose (Fingerstick) 153 mg/dL (70-99) 184 mg/dL (70-99) Heparin Anti-Xa Act, Unfractionated 0.13 IU/mL (0.30-0.70) 0.57 IU/mL (0.30-0.70) Test 04/11/19 07:54 Glucose (Fingerstick) 111 mg/dL (70-99) Laboratory Tests Test 04/10/19 11:39 04/10/19 12:13 04/10/19 15:00 04/10/19 17:53 Glucose (Fingerstick) 190 mg/dL (70-99) 153 mg/dL (70-99) Troponin I Quantitative 3.689 ng/mL (0.000-0.055) Heparin Anti-Xa Act, Unfractionated 0.22 IU/mL (0.30-0.70) Test 04/10/19 20:44 04/10/19 22:08 04/11/19 05:00 04/11/19 07:54 Glucose (Fingerstick) 184 mg/dL (70-99) 111 mg/dL (70-99) Heparin Anti-Xa Act, Unfractionated 0.13 IU/mL (0.30-0.70) 0.57 IU/mL (0.30-0.70) Medications Active Scripts Medications Dose Route/Sig Max Daily Dose Days Date Category Aspirin 81 Mg Tab.chew 81 Mg PO DAILY 04/10/19 Reported Atorvastatin Calcium 40 Mg Tablet 40 Mg PO HS 04/10/19 Reported Plavix (Clopidogrel Bisulfate) 75 Mg Tablet 75 Mg PO DAILY 04/10/19 Reported Melatonin 3 Mg Tablet 3 Mg PO HS 04/10/19 Reported Nephplex Rx Tablet (Vit B Cmplx No3/Fa/C/Biot/Zinc) 1 Each Tablet 1 Tab PO DAILY 30 04/10/19 Reported Lantus Solostar (Insulin Glargine,Hum.rec.anlog) 100 Unit/1 Ml Insuln.pen 12 Unit SQ HS 04/10/19 Reported Novolog (Insulin Aspart) 100 Unit/1 Ml Vial 3 Unit SQ TIDWMEALS 04/10/19 Reported Renvela (Sevelamer Carbonate) 800 Mg Tablet 800 Mg PO TIDWMEALS 04/10/19 Reported Senna (Sennosides) 8.8 Mg/5 Ml Syrup 8.8 Mg PO DAILY PRN 04/10/19 Reported Impression . IMPRESSION: 1. Acute hypoxemic respiratory failure. 2. Acute on chronic systolic heart failure. 3. End-stage renal disease. 4. Cardiomyopathy with decreased ejection fraction. 5. Non-ST segment elevation myocardial infarction. 6. Moderate to severe coronary artery disease. 7. Hypertension. 8. End-stage renal disease, on hemodialysis. Plan . NEGATIVE FLUID BALANCE\ UP TO CHAIR 02 NO ANITBX SINCERE SELF MD Apr 11, 2019 08:42
[2019-04-11] MEDS: LISINOPRIL 5 MG TABLET. PO SCH (09:00)
[2019-04-11] MEDS: ISOSORBIDE MONONITRATE ER 30 MG TAB.ER.24H PO SCH (09:00)
--- NOTE | 2019-04-11 10:17 | PDOC ---
PROGRESS NOTES History of Present Illness History of Present Illness VTE Prophylaxis Ordered VTE Prophylaxis Devices: Yes VTE Pharmacological Prophylaxi: Yes Assessment/Plan Assessment/Plan Impression: Acute pulmonary edema CHEST PAIN, UNSTABLE Hazy bilateral airspace disease from infiltrates or edema. Chest pain ACUTE NSTEMI (non-ST elevated myocardial infarction) severe LAD disease and LCx subtotal occlusion (unsuccessful attempt for PCI). RCA was nondominant and patent. poor surgical candidate due to comorbidities ESRD (end stage renal disease) on dialysis ADMITTED [facility] BED CONSULT CARDIOLOGY CONSULT NEPHROLOGY PULM CONSULT dvt prophylaxis followup with HF clinic upon discharge. 27 min pt exam, chart review, > 50% of time spent with exam, chart review, pt care coordination Vitals Vitals Vital Signs Date Time Temp Pulse Resp B/P (MAP) Pulse Ox O2 Delivery O2 Flow Rate FiO2 04/11/19 08:10 98 Nasal Cannula 2.0 04/11/19 07:25 98.0 81 20 100/58 (72) 98.0 Physical Exam General: Alert, Oriented X3, Cooperative, mild distress Heart: Regular rate Abdomen: Normal bowel sounds, Soft Extremities: No edema, Normal pulses Skin: No significant lesion Labs LABS Laboratory Tests Test 04/10/19 11:39 04/10/19 12:13 04/10/19 15:00 04/10/19 17:53 Glucose (Fingerstick) 190 mg/dL (70-99) 153 mg/dL (70-99) Troponin I Quantitative 3.689 ng/mL (0.000-0.055) Heparin Anti-Xa Act, Unfractionated 0.22 IU/mL (0.30-0.70) Test 04/10/19 20:44 04/10/19 22:08 04/11/19 05:00 04/11/19 07:54 Glucose (Fingerstick) 184 mg/dL (70-99) 111 mg/dL (70-99) Heparin Anti-Xa Act, Unfractionated 0.13 IU/mL (0.30-0.70) 0.57 IU/mL (0.30-0.70) Assessment and Plan Assessmemt and Plan Problems Medical Problems: (1) Acute pulmonary edema Status: Acute (2) Chest pain Status: Acute (3) ESRD (end stage renal disease) on dialysis Status: Acute (4) NSTEMI (non-ST elevated myocardial infarction) Status: Acute Comment Review of Relevant I have reviewed the following items ngozi (where applicable) has been applied. Labs Laboratory Tests Test 04/09/19 22:10 04/09/19 22:43 04/10/19 03:00 04/10/19 06:50 O2 Saturation 96 % (92-99) Arterial Blood pH 7.44 (7.35-7.45) Arterial Blood pCO2 at Patient Temp 34 mmHg (35-46) Arterial Blood pO2 at Patient Temp 91 mmHg (65-108) Arterial Blood HCO3 22 mmol/L (21-28) Arterial Blood Base Excess -1 mmol/L (-3-3) FiO2 80 White Blood Count 12.5 x10^3/uL (4.0-11.0) 10.7 x10^3/uL (4.0-11.0) Red Blood Count 3.64 x10^6/uL (4.30-5.70) 3.71 x10^6/uL (4.30-5.70) Hemoglobin 10.8 g/dL (13.0-17.5) 11.1 g/dL (13.0-17.5) Hematocrit 32.5 % (39.0-53.0) 33.5 % (39.0-53.0) Mean Corpuscular Volume 89 fL (79-100) 90 fL (79-100) Mean Corpuscular Hemoglobin 30 pg (25-35) 30 pg (25-35) Mean Corpuscular Hemoglobin Concent 33 g/dL (31-37) 33 g/dL (31-37) Red Cell Distribution Width 21.2 % (11.5-14.5) 21.2 % (11.5-14.5) Platelet Count 104 x10^3/uL (140-400) 100 x10^3/uL (140-400) Neutrophils (%) (Auto) 90 % (31-73) 85 % (31-73) Lymphocytes (%) (Auto) 4 % (24-48) 8 % (24-48) Monocytes (%) (Auto) 5 % (0-9) 6 % (0-9) Eosinophils (%) (Auto) 1 % (0-3) 0 % (0-3) Basophils (%) (Auto) 1 % (0-3) 0 % (0-3) Neutrophils # (Auto) 11.2 x10^3/uL (1.8-7.7) 9.2 x10^3/uL (1.8-7.7) Lymphocytes # (Auto) 0.5 x10^3/uL (1.0-4.8) 0.8 x10^3/uL (1.0-4.8) Monocytes # (Auto) 0.6 x10^3/uL (0.0-1.1) 0.6 x10^3/uL (0.0-1.1) Eosinophils # (Auto) 0.1 x10^3/uL (0.0-0.7) 0.0 x10^3/uL (0.0-0.7) Basophils # (Auto) 0.1 x10^3/uL (0.0-0.2) 0.0 x10^3/uL (0.0-0.2) Segmented Neutrophils % 88 % (35-66) Lymphocytes % 4 % (24-48) Monocytes % 5 % (0-10) Eosinophils % 3 % (0-5) Platelet Estimate Decreased (ADEQUATE) Polychromasia Slight Anisocytosis Mod Ovalocytes Few Sodium Level 138 mmol/L (136-145) 139 mmol/L (136-145) Potassium Level 4.8 mmol/L (3.5-5.1) 4.7 mmol/L (3.5-5.1) Chloride Level 96 mmol/L (98-107) 97 mmol/L (98-107) Carbon Dioxide Level 25 mmol/L (21-32) 24 mmol/L (21-32) Anion Gap 17 (6-14) 18 (6-14) Blood Urea Nitrogen 78 mg/dL (8-26) 83 mg/dL (8-26) Creatinine 9.3 mg/dL (0.7-1.3) 9.7 mg/dL (0.7-1.3) Estimated GFR (Cockcroft-Gault) 5.6 5.3 BUN/Creatinine Ratio 8 (6-20) 9 (6-20) Glucose Level 253 mg/dL (70-99) 190 mg/dL (70-99) Calcium Level 9.2 mg/dL (8.5-10.1) 9.0 mg/dL (8.5-10.1) Total Bilirubin 0.5 mg/dL (0.2-1.0) 0.5 mg/dL (0.2-1.0) Aspartate Amino Transf (AST/SGOT) 43 U/L (15-37) 47 U/L (15-37) Alanine Aminotransferase (ALT/SGPT) 25 U/L (16-63) 25 U/L (16-63) Alkaline Phosphatase 118 U/L (46-116) 109 U/L (46-116) Troponin I Quantitative 3.681 ng/mL (0.000-0.055) 3.914 ng/mL (0.000-0.055) 4.076 ng/mL (0.000-0.055) XS-Ysi-Q-Type Natriuretic Peptide > 81460 pg/mL (0-124) Total Protein 6.4 g/dL (6.4-8.2) 6.5 g/dL (6.4-8.2) Albumin 3.0 g/dL (3.4-5.0) 3.0 g/dL (3.4-5.0) Albumin/Globulin Ratio 0.9 (1.0-1.7) 0.9 (1.0-1.7) Heparin Anti-Xa Act, Unfractionated 0.29 IU/mL (0.30-0.70) Triglycerides Level 89 mg/dL (0-150) Cholesterol Level 128 mg/dL (0-200) LDL Cholesterol, Calculated 65 mg/dL (0-100) VLDL Cholesterol, Calculated 18 mg/dL (0-40) Non-HDL Cholesterol Calculated 83 mg/dL (0-129) HDL Cholesterol 45 mg/dL (40-60) Cholesterol/HDL Ratio 2.8 Thyroid Stimulating Hormone (TSH) 4.257 uIU/mL (0.358-3.74) Test 04/10/19 07:18 04/10/19 11:39 04/10/19 12:13 04/10/19 15:00 Glucose (Fingerstick) 177 mg/dL (70-99) 190 mg/dL (70-99) Troponin I Quantitative 3.689 ng/mL (0.000-0.055) Heparin Anti-Xa Act, Unfractionated 0.22 IU/mL (0.30-0.70) Test 04/10/19 17:53 04/10/19 20:44 04/10/19 22:08 04/11/19 05:00 Glucose (Fingerstick) 153 mg/dL (70-99) 184 mg/dL (70-99) Heparin Anti-Xa Act, Unfractionated 0.13 IU/mL (0.30-0.70) 0.57 IU/mL (0.30-0.70) Test 04/11/19 07:54 Glucose (Fingerstick) 111 mg/dL (70-99) Laboratory Tests Test 04/10/19 11:39 04/10/19 12:13 04/10/19 15:00 04/10/19 17:53 Glucose (Fingerstick) 190 mg/dL (70-99) 153 mg/dL (70-99) Troponin I Quantitative 3.689 ng/mL (0.000-0.055) Heparin Anti-Xa Act, Unfractionated 0.22 IU/mL (0.30-0.70) Test 04/10/19 20:44 04/10/19 22:08 04/11/19 05:00 04/11/19 07:54 Glucose (Fingerstick) 184 mg/dL (70-99) 111 mg/dL (70-99) Heparin Anti-Xa Act, Unfractionated 0.13 IU/mL (0.30-0.70) 0.57 IU/mL (0.30-0.70) Medications Current Medications Albuterol/ Ipratropium (Duoneb) 3 ml 1X ONCE NEB Last administered on 04/09/19at 21:54; Start 04/09/19 at 22:00; Stop 04/09/19 at 22:01; Status DC Morphine Sulfate (Morphine Sulfate) 2 mg 1X ONCE IV ; Start 04/09/19 at 22:30; Stop 04/09/19 at 22:31; Status DC Heparin Sodium (Porcine) (Heparin Sodium) 3,600 unit 1X ONCE IV Last administered on 04/10/19at 00:24; Start 04/09/19 at 23:15; Stop 04/09/19 at 23:16; Status DC Heparin Sodium/ Dextrose 250 ml @ 0 mls/hr CONT PRN IV PER PROTOCOL Last administered on 04/10/19at 20:25; Start 04/09/19 at 23:15 Heparin Sodium (Porcine) (Heparin Sodium) 1,500 unit PRN Q6HRS PRN IV FOR UFH LEVEL LESS THAN 0.2 Last administered on 04/10/19at 23:30; Start 04/09/19 at 23:15 Ondansetron HCl (Zofran) 4 mg PRN Q8HRS PRN IV NAUSEA/VOMITING; Start 04/09/19 at 23:45; Stop 04/10/19 at 23:44; Status DC Acetaminophen (Tylenol) 650 mg PRN Q4HRS PRN PO FEVER; Start 04/09/19 at 23:45; Stop 04/10/19 at 23:44; Status DC Nitroglycerin (Nitrostat) 0.4 mg PRN Q5MIN PRN SL CHEST PAIN; Start 04/09/19 at 23:45; Stop 04/10/19 at 23:44; Status DC Albuterol/ Ipratropium (Duoneb) 3 ml RTQID NEB Last administered on 04/10/19at 19:36; Start 04/10/19 at 08:00; Stop 04/11/19 at 07:59; Status DC Info (Anti-Coagulation Monitoring By Pharmacy) 1 each PRN DAILY PRN MC SEE COMMENTS; Start 04/10/19 at 09:15 Aspirin (Children'S Aspirin) 81 mg DAILY PO Last administered on 04/10/19at 18:20; Start 04/10/19 at 11:00 Atorvastatin Calcium (Lipitor) 40 mg HS PO ; Start 04/10/19 at 21:00 Clopidogrel Bisulfate (Plavix) 75 mg DAILY PO Last administered on 04/10/19at 18:20; Start 04/10/19 at 11:00 Isosorbide Mononitrate (Imdur) 30 mg DAILY PO Last administered on 04/10/19at 18:20; Start 04/10/19 at 11:00 Metoprolol Tartrate (Lopressor) 12.5 mg BID PO ; Start 04/10/19 at 11:00 Sodium Chloride 1,000 ml @ 1,000 mls/hr Q1H PRN IV hypotension; Start 04/10/19 at 12:00; Stop 04/10/19 at 17:59; Status DC Sodium Chloride 1,000 ml @ 400 mls/hr Q2H30M PRN IV PATENCY; Start 04/10/19 at 12:00; Stop 04/10/19 at 23:59; Status DC Info (PHARMACY MONITORING -- do not chart) 1 each PRN DAILY PRN MC SEE COMMENTS; Start 04/10/19 at 15:15; Status UNV Info (PHARMACY MONITORING -- do not chart) 1 each PRN DAILY PRN MC SEE COMMENTS; Start 04/10/19 at 15:15; Status Cancel Sodium Chloride 1,000 ml @ 1,000 mls/hr Q1H PRN IV hypotension; Start 04/10/19 at 12:00; Stop 04/10/19 at 17:59; Status DC Sodium Chloride 1,000 ml @ 400 mls/hr Q2H30M PRN IV PATENCY; Start 04/10/19 at 12:00; Stop 04/10/19 at 23:59; Status DC Info (PHARMACY MONITORING -- do not chart) 1 each PRN DAILY PRN MC SEE COMMENTS; Start 04/10/19 at 16:00; Status UNV Info (PHARMACY MONITORING -- do not chart) 1 each PRN DAILY PRN MC SEE COMMENTS; Start 04/10/19 at 16:00 Lisinopril (Prinivil) 5 mg DAILY PO Last administered on 04/10/19at 18:20; Start 04/10/19 at 17:00 Albuterol Sulfate (Ventolin Neb Soln) 2.5 mg PRN Q4HRS PRN INH SHORTNESS OF BREATH; Start 04/10/19 at 17:45 Info (CONTRAST GIVEN -- Rx MONITORING) 1 each PRN DAILY PRN MC SEE COMMENTS; S tart 04/10/19 at 18:00; Stop 04/12/19 at 17:59 Morphine Sulfate (Morphine Sulfate) 2 mg PRN Q2HR PRN IV PAIN Last administered on 04/10/19at 20:04; Start 04/10/19 at 19:45 Albuterol/ Ipratropium (Duoneb) 3 ml RTQID NEB ; Start 04/11/19 at 08:00 Active Scripts Active Reported Aspirin 81 Mg Tab.chew 81 Mg PO DAILY Atorvastatin Calcium 40 Mg Tablet 40 Mg PO HS Plavix (Clopidogrel Bisulfate) 75 Mg Tablet 75 Mg PO DAILY Melatonin 3 Mg Tablet 3 Mg PO HS Nephplex Rx Tablet (Vit B Cmplx No3/Fa/C/Biot/Zinc) 1 Each Tablet 1 Tab PO DAILY 30 Days Lantus Solostar (Insulin Glargine,Hum.rec.anlog) 100 Unit/1 Ml Insuln.pen 12 Unit SQ HS Novolog (Insulin Aspart) 100 Unit/1 Ml Vial 3 Unit SQ TIDWMEALS Renvela (Sevelamer Carbonate) 800 Mg Tablet 800 Mg PO TIDWMEALS Senna (Sennosides) 8.8 Mg/5 Ml Syrup 8.8 Mg PO DAILY PRN Vitals/I & O Vital Sign - Last 24 Hours 04/10/19 04/10/19 04/10/19 04/10/19 10:53 11:52 13:40 18:20 Temp 98.8 98.8 Pulse 96 96 Resp 22 B/P (MAP) 143/77 (99) 136/77 Pulse Ox 100 100 94 O2 Delivery BiPAP/CPAP AVAPS Nasal Cannula O2 Flow Rate 3.0 04/10/19 04/10/19 04/10/19 04/10/19 18:20 19:15 19:36 19:50 Temp 98.1 98.1 Pulse 96 103 Resp 24 B/P (MAP) 136/77 121/68 (85) Pulse Ox 96 96 O2 Delivery Nasal Cannula Nasal Cannula Nasal Cannula O2 Flow Rate 2.0 2.0 2.0 04/10/19 04/10/19 04/10/19 04/10/19 20:03 20:04 20:34 23:41 Temp 98.0 98.0 Pulse 103 94 Resp 20 18 24 B/P (MAP) 121/68 96/51 (66) Pulse Ox 96 96 94 O2 Delivery Nasal Cannula Nasal Cannula Nasal Cannula O2 Flow Rate 2.0 2.0 2.0 04/11/19 04/11/19 04/11/19 03:26 07:25 08:10 Temp 98.0 98.0 98.0 98.0 Pulse 82 81 Resp 18 20 B/P (MAP) 99/57 (71) 100/58 (72) Pulse Ox 100 99 98 O2 Delivery Nasal Cannula Nasal Cannula Nasal Cannula O2 Flow Rate 2.0 2.0 2.0 Intake and Output 04/10/19 04/10/19 04/11/19 14:59 22:59 06:59 Intake Total 0 ml 0 ml Balance 0 ml 0 ml SLAVA SETHI MD Apr 11, 2019 10:17
--- NOTE | 2019-04-11 10:27 | PDOC ---
Renal-Progress Notes Subjective Notes Notes LESS SOB History of Present Illness Hx of present illness STABLE Vitals Vitals Vital Signs Date Time Temp Pulse Resp B/P (MAP) Pulse Ox O2 Delivery O2 Flow Rate FiO2 04/11/19 08:10 98 Nasal Cannula 2.0 04/11/19 07:25 98.0 81 20 100/58 (72) 98.0 Weight Weight [ ] I.O. Intake and Output Intake and Output 04/11/19 07:00 Intake Total 0 ml Balance 0 ml Intake Oral 0 ml # Voids 3 # Bowel Movements 2 Labs Labs Laboratory Tests Test 04/10/19 11:39 04/10/19 12:13 04/10/19 15:00 04/10/19 17:53 Glucose (Fingerstick) 190 mg/dL (70-99) 153 mg/dL (70-99) Troponin I Quantitative 3.689 ng/mL (0.000-0.055) Heparin Anti-Xa Act, Unfractionated 0.22 IU/mL (0.30-0.70) Test 04/10/19 20:44 04/10/19 22:08 04/11/19 05:00 04/11/19 07:54 Glucose (Fingerstick) 184 mg/dL (70-99) 111 mg/dL (70-99) Heparin Anti-Xa Act, Unfractionated 0.13 IU/mL (0.30-0.70) 0.57 IU/mL (0.30-0.70) Review of Systems Constitutional: yes: alert, oriented Ears/Nose/Throat: Yes: no symptom reported Eyes: Yes: no symptom reported Pulmonary: Yes dyspnea Gastrointestional: Yes: no symptom reported Genitourinary: Yes: no symptom reported Musculoskeletal: Yes: no symptom reported Skin: Yes no symptom reported Psychiatric/Neurological: Yes: no symptom reported Endocrine: Yes: no symptom reported Physical Exam General Appearance: no apparent distress Skin: warm Respiratory: decreased breath sounds Heart: S1S2 Abdomen: soft, bowel sounds present Genitourinary: bladder flat Extremities: pulses present Musculoskeletal: Osteoarthritis Assessment Assessment IMP ESRD ANEMIA ACUTE HYPOXIC RESP FAILURE ACUTE ON CHRONIC D CHF PLAN HD TOMORROW SUPPLEMENT O2 AND BIPAP ANETA WHEN NEEDED ENC COMPLIANCE LISA LEAHY MD Apr 11, 2019 10:27
[2019-04-11 11:19] VITALS: BP 110/54
--- NOTE | 2019-04-11 12:16 | NUR ---
SS following up with discharge planning. PT/OT evaluated and recommended prison unit. SS phoned and faxed referral to [facility], ; fax [phone]. SS will await acceptance decision and insurance determination and will proceed accordingly with discharge planning.
[2019-04-11] MEDS: METOPROLOL TART IMMED RELEASE 25 MG TABLET. PO SCH ×2 (12:17→20:55)
[2019-04-11] MEDS: ASPIRIN CHEWABLE 81 MG TABLET. PO SCH (12:18)
[2019-04-11] MEDS: CLOPIDOGREL BISULFATE 75 MG TABLET PO SCH (12:18)
--- NOTE | 2019-04-11 14:51 | PDOC ---
CARLINE GARCIA SLATE CUTTER 04/11/19 1451: CARDIO Progress Notes Date and Time Date of Service 04/11/19 Time of Evaluation 1215 Subjective Subjective: No Chest Pain, No shortness of breath, No Palpitations Vitals Vitals Vital Signs Date Time Temp Pulse Resp B/P (MAP) Pulse Ox O2 Delivery O2 Flow Rate FiO2 04/11/19 12:17 81 110/54 04/11/19 11:22 98 Nasal Cannula 2.0 04/11/19 11:19 97.5 20 97.5 Weight Weight [ ] Input and Output Intake and Output Intake and Output 04/11/19 07:00 Intake Total 0 ml Balance 0 ml Intake Oral 0 ml # Voids 3 # Bowel Movements 2 Laboratory Labs Laboratory Tests Test 04/10/19 15:00 04/10/19 17:53 04/10/19 20:44 04/10/19 22:08 Heparin Anti-Xa Act, Unfractionated 0.22 IU/mL (0.30-0.70) 0.13 IU/mL (0.30-0.70) Glucose (Fingerstick) 153 mg/dL (70-99) 184 mg/dL (70-99) Test 04/11/19 05:00 04/11/19 07:54 04/11/19 11:15 04/11/19 11:41 Heparin Anti-Xa Act, Unfractionated 0.57 IU/mL (0.30-0.70) 0.51 IU/mL (0.30-0.70) Glucose (Fingerstick) 111 mg/dL (70-99) 127 mg/dL (70-99) Review of Systems Constitutional: yes: alert, oriented Ears/Nose/Throat: Yes: no symptom reported Eyes: Yes: no symptom reported Pulmonary: Yes dyspnea Gastrointestional: Yes: no symptom reported Genitourinary: Yes: no symptom reported Musculoskeletal: Yes: no symptom reported Skin: Yes no symptom reported Psychiatric/Neurological: Yes: no symptom reported Endocrine: Yes: no symptom reported Physical Exam HEENT: Neck Supple W Full Motion Chest: Symmetric LUNGS: Other (diminished bases) Heart: S1S2, RRR, murmurs (2/6 systolic murmur ) Abdomen: Soft N/T Extremities: No Edema Neurology: alert, follow commands Assessment Assessment 1. Acute respiratory failure with a/c CHF; improved, off BiPAP 2. Acute on chronic systolic CHF secondary to missed HD; Echo showed LVEF 20- 25%. previously 50% per echo 11/2018. Better compensated following UF 3. NSTEMI; peak trop 4.0 on heparin gtt 4. CAD; moderate to severe CAD. Cath 12/01 as noted below. Moderate to severe LAD disease and LCx subtotal occlusion (unsuccessful attempt for PCI). RCA was nondominant and patent. Deemed poor surgical candidate due to comorbidities. Treated medically 5. ESRD on HD; uremic, missed HD 6. Hypertension; presently hypotensive. 7. Hyperlipidemia; statin. LDL 65 8. Diabetes, II Recommendations Continue heparin for another 24hrs. ASA, statin, Plavix Will discontinue lisinopril with hypotension Continue imdur and low-dose BB as BP allows. Fluid offloading via HD Consider viability study, will defer to Primary cardiology at Will need to followup with HF clinic upon discharge. Reinforced importance of medical compliance AIXA HOLGUIN MD 04/12/19 1005: CARDIO Progress Notes Assessment Assessment Patient seen and examined on 04/11/19. The patient is more alert today. 1. Acute respiratory failure with a/c CHF; improved, off BiPAP. Continuing medical treatment. 2. Acute on chronic systolic CHF secondary to missed HD; Echo showed LVEF 20- 25%. previously 50% per echo 11/2018. Better compensated following UF 3. NSTEMI; peak trop 4.0 on heparin gtt 4. CAD; severe CAD. Cath 12/01 as noted below. Moderate to severe LAD disease and LCx subtotal occlusion (unsuccessful attempt for PCI). RCA was nondominant and patent. Deemed poor surgical candidate due to comorbidities. Treated medically. At this time we'll continue medical treatment and gradually increase activities. Patient states he routinely follows up@ and would be a candidate for the heart failure clinic. 5. ESRD on HD; uremic, missed HD. As per the renal service. 6. Hypertension; presently mildly hypotensive. 7. Hyperlipidemia; statin. LDL 65 8. Diabetes, II CARLINE GARCIA APRN Apr 11, 2019 14:51 AIXA HOLGUIN MD Apr 12, 2019 10:05
[2019-04-11 14:57] VITALS: BP 92/51
--- NOTE | 2019-04-11 16:00 | NUR ---
Wound Care: Patient seen per wound care consult. See wound assessment. patient has DTI to right heel. Recommendations for skin prep and foam dressing. Dressing applied. Patient has healed wound to coccyx area. skin prep applied for protection. No other wounds noted upon complete head to toe assessment. Dressing change instructions left in room. A p-500 bed ordered for this patient, as well as bilateral heel medix, and a wheelchair cushion. Patient educated on turning and pressure relief. Bed lowered and call light in reach. Spoke with RN. Will follow patient regarding wound care.
[2019-04-11 19:15] VITALS: BP 107/56
[2019-04-11] MEDS: ATORVASTATIN CALCIUM 40 MG TABLET. PO SCH (20:54)
[2019-04-11 22:32] VITALS: BP 103/51
[2019-04-12] MEDS: HEPARIN 25,000UTS/250ML PREMIX 250 ML IV PRN (01:46)
[2019-04-12 02:44] VITALS: BP 126/58
[2019-04-12 05:59] LABS: ALBUMIN 2.6 g/dL (3.4-5.0); CALCIUM 8.5 mg/dL (8.5-10.1); CREATININE 9.9 mg/dL (0.7-1.3); GFR 5.2; PHOSPHORUS 7.1 mg/dL (2.6-4.7); POTASSIUM 4.3 mmol/L (3.5-5.1)
[2019-04-12 06:04] LABS: BASO % 1 % (0-3); EOS # 0.2 x10^3/uL (0.0-0.7); EOS % 4 % (0-3); HEMATOCRIT 27.1 % (39.0-53.0); HEMOGLOBIN 8.9 g/dL (13.0-17.5); LYMPH # 0.6 x10^3/uL (1.0-4.8); LYMPH % 13 % (24-48); MEAN CORPUSCULAR HEMOGLOBIN 30 pg (25-35); MEAN CORPUSCULAR HGB CONC 33 g/dL (31-37); MEAN CORPUSCULAR VOLUME 91 fL (79-100); MONO # 0.5 x10^3/uL (0.0-1.1); MONO % 12 % (0-9); NEUT # 3.3 x10^3/uL (1.8-7.7); NEUT % 71 % (31-73); PLATELET COUNT 89 x10^3/uL (140-400); RED BLOOD COUNT 2.98 x10^6/uL (4.30-5.70); RED CELL DISTRIBUTION WIDTH 20.8 % (11.5-14.5); WHITE BLOOD COUNT 4.7 x10^3/uL (4.0-11.0)
[2019-04-12] MEDS: IPRATRPIUM/ALBUTEROL 0.5/2.5MG 3 ML NEBU. NEB SCH ×4 (06:28→20:25)
[2019-04-12 07:15] VITALS: BP 106/54
[2019-04-12] MEDS ORDERED: IV NORMAL SALINE 1000ML BAG 1,000 ML IV PRN ×2 (07:43)
[2019-04-12] MEDS ORDERED: DIALYSIS PATIENT. MC PRN ×2 (07:45)
[2019-04-12] MEDS: LISINOPRIL 5 MG TABLET. PO SCH (09:00)
[2019-04-12] MEDS: ISOSORBIDE MONONITRATE ER 30 MG TAB.ER.24H PO SCH (09:00)
--- NOTE | 2019-04-12 10:40 | PDOC ---
PROGRESS NOTES History of Present Illness History of Present Illness VTE Prophylaxis Ordered VTE Prophylaxis Devices: Yes VTE Pharmacological Prophylaxi: Yes Assessment/Plan Assessment/Plan Impression: Acute pulmonary edema CHEST PAIN, UNSTABLE Hazy bilateral airspace disease from infiltrates or edema. Chest pain ACUTE NSTEMI (non-ST elevated myocardial infarction) severe LAD disease and LCx subtotal occlusion (unsuccessful attempt for PCI). RCA was nondominant and patent. poor surgical candidate due to comorbidities ESRD (end stage renal disease) on dialysis ADMITTED [facility] BED CONSULT CARDIOLOGY CONSULT NEPHROLOGY PULM CONSULT dvt prophylaxis followup with HF clinic upon discharge. SEEN IN DIALYSIS, REMAINS WEAK, SLOW TO IMPROVE * 2 weeks Discharge Recommendations * Long Term Unit Discharge Recommendation - DME * Rolling Walker needed * and ambulation safely Discharge Recommendation Comments * SNU (possibly return to [facility]) 29 min pt exam, chart review, > 50% of time spent with exam, chart review, pt care coordination Vitals Vitals Vital Signs Date Time Temp Pulse Resp B/P (MAP) Pulse Ox O2 Delivery O2 Flow Rate FiO2 04/12/19 08:00 Nasal Cannula 2.0 04/12/19 07:15 97.6 80 20 106/54 (71) 100 97.6 Physical Exam General: Alert, Oriented X3, Cooperative, mild distress Heart: Regular rate Lungs: Crackles Abdomen: Normal bowel sounds, Soft Extremities: No edema, Normal pulses Skin: No significant lesion Labs LABS Laboratory Tests Test 04/11/19 11:15 04/11/19 11:41 04/11/19 16:39 04/11/19 17:40 Heparin Anti-Xa Act, Unfractionated 0.51 IU/mL (0.30-0.70) 0.40 IU/mL (0.30-0.70) Glucose (Fingerstick) 127 mg/dL (70-99) 161 mg/dL (70-99) Test 04/11/19 21:56 04/12/19 05:15 04/12/19 07:12 Glucose (Fingerstick) 165 mg/dL (70-99) 170 mg/dL (70-99) White Blood Count 4.7 x10^3/uL (4.0-11.0) Red Blood Count 2.98 x10^6/uL (4.30-5.70) Hemoglobin 8.9 g/dL (13.0-17.5) Hematocrit 27.1 % (39.0-53.0) Mean Corpuscular Volume 91 fL (79-100) Mean Corpuscular Hemoglobin 30 pg (25-35) Mean Corpuscular Hemoglobin Concent 33 g/dL (31-37) Red Cell Distribution Width 20.8 % (11.5-14.5) Platelet Count 89 x10^3/uL (140-400) Neutrophils (%) (Auto) 71 % (31-73) Lymphocytes (%) (Auto) 13 % (24-48) Monocytes (%) (Auto) 12 % (0-9) Eosinophils (%) (Auto) 4 % (0-3) Basophils (%) (Auto) 1 % (0-3) Neutrophils # (Auto) 3.3 x10^3/uL (1.8-7.7) Lymphocytes # (Auto) 0.6 x10^3/uL (1.0-4.8) Monocytes # (Auto) 0.5 x10^3/uL (0.0-1.1) Eosinophils # (Auto) 0.2 x10^3/uL (0.0-0.7) Basophils # (Auto) 0.0 x10^3/uL (0.0-0.2) Heparin Anti-Xa Act, Unfractionated 0.36 IU/mL (0.30-0.70) Sodium Level 140 mmol/L (136-145) Potassium Level 4.3 mmol/L (3.5-5.1) Chloride Level 98 mmol/L (98-107) Carbon Dioxide Level 29 mmol/L (21-32) Anion Gap 13 (6-14) Blood Urea Nitrogen 75 mg/dL (8-26) Creatinine 9.9 mg/dL (0.7-1.3) Estimated GFR (Cockcroft-Gault) 5.2 Glucose Level 204 mg/dL (70-99) Calcium Level 8.5 mg/dL (8.5-10.1) Phosphorus Level 7.1 mg/dL (2.6-4.7) Albumin 2.6 g/dL (3.4-5.0) Assessment and Plan Assessmemt and Plan Problems Medical Problems: (1) Acute pulmonary edema Status: Acute (2) Chest pain Status: Acute (3) ESRD (end stage renal disease) on dialysis Status: Acute (4) NSTEMI (non-ST elevated myocardial infarction) Status: Acute * Decreased Proprioception Location * Left Lower Extremity * Right Lower Extremity * Trunk Tone * Hypertonic Tone Location * Left Lower Extremity * Right Lower Extremity * Trunk Coordination * Motor planning decreased * Gross motor cood. decr. Activity Tolerance * Poor - Activity Tolerance/ Vitals * BP supine: 112/58, 96% on 2L02 (pt keeps N/C in mouth), HR 77 BP seated: 110/54, 94% on 2L02, HR 84 Pt did not c/o any dizziness or light headedness. Range of Motion * Pt extremely rigid throughout his body; pt did not follow any AROM commands in supine or sitting. It appears B LE PROM are wfl for pt. Lower trunk rotation rigid and therefore ltd. Pt reports LTR gentle PROM felt good. Strength * Pt did not follow any MMTing commands. B LEs weak. Pt not able to achieve full upright standing position. Sitting Balance * 2 balances w/ both UEs Standing Balance * 1 Pt performs 25-50% Objective Measures Comment * It took increased time to find cog in sitting; intially required Max A 2/2 retropulsion. Pt sat at eob for approx 7 min total once found COG, pt demonstrated the ability to sit with SBA for approx 3 min. Pt's bed elevated and sit to stand was attempted twice; pt stood in standing flexed knee position for less than 10 seconds and sat back down saying he can't do it. Pain Location * seated "I hurt all over" - nonspecific despite encouragement to explain Pain Intervention * RN Notified PT PAIN COMMENTS * Rn aware. No c/o pain in supine position. Rolling Right Assistance Required * Max Assistance * Two-Person Assistance Supine to Sit Assistance Required * Max Assistance * Two-Person Assistance Transfer Assistance Required * Max Assistance * Two-Person Assistance Transfer Type * Sit to Stand Transfer Assistive Device * Roller Walker Transfer Comments * Sit to stand required Max A x 2 with RW support. Despite v/cs, pt not able to push from bed during attempts and grabbed incorrect part of walker. Motor planning and following directions difficult for pt. Pt stood twice in standing flexed trunk and knee position for less than 10 seconds and sat back down saying he can't do it. Transfer for pt to b/s chair was not safe at this time. Ambulation Distance * Not appropriate at this time Supine Exercises Comments * B gentle PROM Lower trunk rotation x 5, PROM heel slides x2 Patient Stated Goal * none stated Rehab Potential to Achieve Goals * Poor Learning Preferences * Demonstration Factors Facilitating Goal Achievement * Available resources Problem List (body system elements) * Impaired fnctnl mobility * Strength * Cognition * Balance * Age * Coordination * Knowledge-safe techniques * Pain Clinical Presentation * Evolving Evaluation Complexity Level * Moderate Complexity Pt/caregiver agrees with plan of care/goals * Decreased Mentation Patient condition at conclusion of therapy * Pt in bed * Bed alarm on * Call light in reach * Phone in reach * PtIn no apparent distress * Pt denies further needs * RN/BAGGAGE PORTER with patient Communicated Patient Care With (Name, Title) * Sylvia RN; DEMIAN Petty Goal 1 - Bed Mobility Assistance Required * Min Assistance Goal 2 - Transfers Assistance Required * Min Assistance Goal 2 - Transfer Type * Sit to Stand Goal 3 - Ambulation Assistance Required * Min Assistance Goal 3 - Ambulation Distance * 5' Goal 3 - Ambulation Device * Roller Walker Treatment Plan * Therapeutic Exercise * Bed Mobility Training * Transfer training * Gait Training Frequency of Treatment Expected * 6 visits/week Duration of Treatment Expected * 2 weeks Discharge Recommendations * Long Term Unit Discharge Recommendation - DME * Rolling Walker needed * and ambulation safely Discharge Recommendation Comments * SNU (possibly return to [facility]) Comment Review of Relevant I have reviewed the following items ngozi (where applicable) has been applied. Labs Laboratory Tests Test 04/10/19 11:39 04/10/19 12:13 04/10/19 15:00 04/10/19 17:53 Glucose (Fingerstick) 190 mg/dL (70-99) 153 mg/dL (70-99) Troponin I Quantitative 3.689 ng/mL (0.000-0.055) Heparin Anti-Xa Act, Unfractionated 0.22 IU/mL (0.30-0.70) Test 04/10/19 20:44 04/10/19 22:08 04/11/19 05:00 04/11/19 07:54 Glucose (Fingerstick) 184 mg/dL (70-99) 111 mg/dL (70-99) Heparin Anti-Xa Act, Unfractionated 0.13 IU/mL (0.30-0.70) 0.57 IU/mL (0.30-0.70) Test 04/11/19 11:15 04/11/19 11:41 04/11/19 16:39 04/11/19 17:40 Heparin Anti-Xa Act, Unfractionated 0.51 IU/mL (0.30-0.70) 0.40 IU/mL (0.30-0.70) Glucose (Fingerstick) 127 mg/dL (70-99) 161 mg/dL (70-99) Test 04/11/19 21:56 04/12/19 05:15 04/12/19 07:12 Glucose (Fingerstick) 165 mg/dL (70-99) 170 mg/dL (70-99) White Blood Count 4.7 x10^3/uL (4.0-11.0) Red Blood Count 2.98 x10^6/uL (4.30-5.70) Hemoglobin 8.9 g/dL (13.0-17.5) Hematocrit 27.1 % (39.0-53.0) Mean Corpuscular Volume 91 fL (79-100) Mean Corpuscular Hemoglobin 30 pg (25-35) Mean Corpuscular Hemoglobin Concent 33 g/dL (31-37) Red Cell Distribution Width 20.8 % (11.5-14.5) Platelet Count 89 x10^3/uL (140-400) Neutrophils (%) (Auto) 71 % (31-73) Lymphocytes (%) (Auto) 13 % (24-48) Monocytes (%) (Auto) 12 % (0-9) Eosinophils (%) (Auto) 4 % (0-3) Basophils (%) (Auto) 1 % (0-3) Neutrophils # (Auto) 3.3 x10^3/uL (1.8-7.7) Lymphocytes # (Auto) 0.6 x10^3/uL (1.0-4.8) Monocytes # (Auto) 0.5 x10^3/uL (0.0-1.1) Eosinophils # (Auto) 0.2 x10^3/uL (0.0-0.7) Basophils # (Auto) 0.0 x10^3/uL (0.0-0.2) Heparin Anti-Xa Act, Unfractionated 0.36 IU/mL (0.30-0.70) Sodium Level 140 mmol/L (136-145) Potassium Level 4.3 mmol/L (3.5-5.1) Chloride Level 98 mmol/L (98-107) Carbon Dioxide Level 29 mmol/L (21-32) Anion Gap 13 (6-14) Blood Urea Nitrogen 75 mg/dL (8-26) Creatinine 9.9 mg/dL (0.7-1.3) Estimated GFR (Cockcroft-Gault) 5.2 Glucose Level 204 mg/dL (70-99) Calcium Level 8.5 mg/dL (8.5-10.1) Phosphorus Level 7.1 mg/dL (2.6-4.7) Albumin 2.6 g/dL (3.4-5.0) Laboratory Tests Test 04/11/19 11:15 04/11/19 11:41 04/11/19 16:39 04/11/19 17:40 Heparin Anti-Xa Act, Unfractionated 0.51 IU/mL (0.30-0.70) 0.40 IU/mL (0.30-0.70) Glucose (Fingerstick) 127 mg/dL (70-99) 161 mg/dL (70-99) Test 04/11/19 21:56 04/12/19 05:15 04/12/19 07:12 Glucose (Fingerstick) 165 mg/dL (70-99) 170 mg/dL (70-99) White Blood Count 4.7 x10^3/uL (4.0-11.0) Red Blood Count 2.98 x10^6/uL (4.30-5.70) Hemoglobin 8.9 g/dL (13.0-17.5) Hematocrit 27.1 % (39.0-53.0) Mean Corpuscular Volume 91 fL (79-100) Mean Corpuscular Hemoglobin 30 pg (25-35) Mean Corpuscular Hemoglobin Concent 33 g/dL (31-37) Red Cell Distribution Width 20.8 % (11.5-14.5) Platelet Count 89 x10^3/uL (140-400) Neutrophils (%) (Auto) 71 % (31-73) Lymphocytes (%) (Auto) 13 % (24-48) Monocytes (%) (Auto) 12 % (0-9) Eosinophils (%) (Auto) 4 % (0-3) Basophils (%) (Auto) 1 % (0-3) Neutrophils # (Auto) 3.3 x10^3/uL (1.8-7.7) Lymphocytes # (Auto) 0.6 x10^3/uL (1.0-4.8) Monocytes # (Auto) 0.5 x10^3/uL (0.0-1.1) Eosinophils # (Auto) 0.2 x10^3/uL (0.0-0.7) Basophils # (Auto) 0.0 x10^3/uL (0.0-0.2) Heparin Anti-Xa Act, Unfractionated 0.36 IU/mL (0.30-0.70) Sodium Level 140 mmol/L (136-145) Potassium Level 4.3 mmol/L (3.5-5.1) Chloride Level 98 mmol/L (98-107) Carbon Dioxide Level 29 mmol/L (21-32) Anion Gap 13 (6-14) Blood Urea Nitrogen 75 mg/dL (8-26) Creatinine 9.9 mg/dL (0.7-1.3) Estimated GFR (Cockcroft-Gault) 5.2 Glucose Level 204 mg/dL (70-99) Calcium Level 8.5 mg/dL (8.5-10.1) Phosphorus Level 7.1 mg/dL (2.6-4.7) Albumin 2.6 g/dL (3.4-5.0) Medications Current Medications Albuterol/ Ipratropium (Duoneb) 3 ml 1X ONCE NEB Last administered on 04/09/19at 21:54; Start 04/09/19 at 22:00; Stop 04/09/19 at 22:01; Status DC Morphine Sulfate (Morphine Sulfate) 2 mg 1X ONCE IV ; Start 04/09/19 at 22:30; Stop 04/09/19 at 22:31; Status DC Heparin Sodium (Porcine) (Heparin Sodium) 3,600 unit 1X ONCE IV Last administered on 04/10/19at 00:24; Start 04/09/19 at 23:15; Stop 04/09/19 at 23:16; Status DC Heparin Sodium/ Dextrose 250 ml @ 0 mls/hr CONT PRN IV PER PROTOCOL Last administered on 04/12/19at 01:46; Start 04/09/19 at 23:15 Heparin Sodium (Porcine) (Heparin Sodium) 1,500 unit PRN Q6HRS PRN IV FOR UFH LEVEL LESS THAN 0.2 Last administered on 04/10/19at 23:30; Start 04/09/19 at 23:15 Ondansetron HCl (Zofran) 4 mg PRN Q8HRS PRN IV NAUSEA/VOMITING; Start 04/09/19 at 23:45; Stop 04/10/19 at 23:44; Status DC Acetaminophen (Tylenol) 650 mg PRN Q4HRS PRN PO FEVER; Start 04/09/19 at 23:45; Stop 04/10/19 at 23:44; Status DC Nitroglycerin (Nitrostat) 0.4 mg PRN Q5MIN PRN SL CHEST PAIN; Start 04/09/19 at 23:45; Stop 04/10/19 at 23:44; Status DC Albuterol/ Ipratropium (Duoneb) 3 ml RTQID NEB Last administered on 04/10/19at 19:36; Start 04/10/19 at 08:00; Stop 04/11/19 at 07:59; Status DC Info (Anti-Coagulation Monitoring By Pharmacy) 1 each PRN DAILY PRN MC SEE COMMENTS Last administered on 04/12/19at 08:23; Start 04/10/19 at 09:15 Aspirin (Children'S Aspirin) 81 mg DAILY PO Last administered on 04/11/19at 12:18; Start 04/10/19 at 11:00 Atorvastatin Calcium (Lipitor) 40 mg HS PO Last administered on 04/11/19at 20:54; Start 04/10/19 at 21:00 Clopidogrel Bisulfate (Plavix) 75 mg DAILY PO Last administered on 04/11/19at 12:18; Start 04/10/19 at 11:00 Isosorbide Mononitrate (Imdur) 30 mg DAILY PO Last administered on 04/10/19at 18:20; Start 04/10/19 at 11:00 Metoprolol Tartrate (Lopressor) 12.5 mg BID PO Last administered on 04/11/19at 20:55; Start 04/10/19 at 11:00 Sodium Chloride 1,000 ml @ 1,000 mls/hr Q1H PRN IV hypotension; Start 04/10/19 at 12:00; Stop 04/10/19 at 17:59; Status DC Sodium Chloride 1,000 ml @ 400 mls/hr Q2H30M PRN IV PATENCY; Start 04/10/19 at 12:00; Stop 04/10/19 at 23:59; Status DC Info (PHARMACY MONITORING -- do not chart) 1 each PRN DAILY PRN MC SEE COMMENTS; Start 04/10/19 at 15:15; Status UNV Info (PHARMACY MONITORING -- do not chart) 1 each PRN DAILY PRN MC SEE COMMENTS ; Start 04/10/19 at 15:15; Status Cancel Sodium Chloride 1,000 ml @ 1,000 mls/hr Q1H PRN IV hypotension; Start 04/10/19 at 12:00; Stop 04/10/19 at 17:59; Status DC Sodium Chloride 1,000 ml @ 400 mls/hr Q2H30M PRN IV PATENCY; Start 04/10/19 at 12:00; Stop 04/10/19 at 23:59; Status DC Info (PHARMACY MONITORING -- do not chart) 1 each PRN DAILY PRN MC SEE COMMENTS; Start 04/10/19 at 16:00; Status UNV Info (PHARMACY MONITORING -- do not chart) 1 each PRN DAILY PRN MC SEE COMMENTS; Start 04/10/19 at 16:00; Stop 04/12/19 at 08:21; Status DC Lisinopril (Prinivil) 5 mg DAILY PO Last administered on 04/10/19at 18:20; Start 04/10/19 at 17:00 Albuterol Sulfate (Ventolin Neb Soln) 2.5 mg PRN Q4HRS PRN INH SHORTNESS OF BREATH; Start 04/10/19 at 17:45 Info (CONTRAST GIVEN -- Rx MONITORING) 1 each PRN DAILY PRN MC SEE COMMENTS; Start 04/10/19 at 18:00; Stop 04/12/19 at 17:59 Morphine Sulfate (Morphine Sulfate) 2 mg PRN Q2HR PRN IV PAIN Last administered on 04/10/19at 20:04; Start 04/10/19 at 19:45 Albuterol/ Ipratropium (Duoneb) 3 ml RTQID NEB Last administered on 04/12/19at 06:28; Start 04/11/19 at 08:00 Sodium Chloride 1,000 ml @ 1,000 mls/hr Q1H PRN IV hypotension; Start 04/12/19 at 07:43; Stop 04/12/19 at 13:42 Sodium Chloride 1,000 ml @ 400 mls/hr Q2H30M PRN IV PATENCY; Start 04/12/19 at 07:43; Stop 04/12/19 at 19:42 Info (PHARMACY MONITORING -- do not chart) 1 each PRN DAILY PRN MC SEE COMMENTS; Start 04/12/19 at 07:45; Status UNV Info (PHARMACY MONITORING -- do not chart) 1 each PRN DAILY PRN MC SEE COM MENTS; Start 04/12/19 at 07:45 Active Scripts Active Reported Aspirin 81 Mg Tab.chew 81 Mg PO DAILY Atorvastatin Calcium 40 Mg Tablet 40 Mg PO HS Plavix (Clopidogrel Bisulfate) 75 Mg Tablet 75 Mg PO DAILY Melatonin 3 Mg Tablet 3 Mg PO HS Nephplex Rx Tablet (Vit B Cmplx No3/Fa/C/Biot/Zinc) 1 Each Tablet 1 Tab PO DAILY 30 Days Lantus Solostar (Insulin Glargine,Hum.rec.anlog) 100 Unit/1 Ml Insuln.pen 12 Unit SQ HS Novolog (Insulin Aspart) 100 Unit/1 Ml Vial 3 Unit SQ TIDWMEALS Renvela (Sevelamer Carbonate) 800 Mg Tablet 800 Mg PO TIDWMEALS Senna (Sennosides) 8.8 Mg/5 Ml Syrup 8.8 Mg PO DAILY PRN Vitals/I & O Vital Sign - Last 24 Hours 04/11/19 04/11/19 04/11/19 04/11/19 11:19 11:22 12:17 14:57 Temp 97.5 98.1 97.5 98.1 Pulse 81 81 73 Resp 20 20 B/P (MAP) 110/54 (72) 110/54 92/51 (65) Pulse Ox 98 98 100 O2 Delivery Nasal Cannula Nasal Cannula Nasal Cannula O2 Flow Rate 2.0 2.0 2.0 04/11/19 04/11/19 04/11/19 04/11/19 16:02 19:15 19:58 20:00 Temp 98.2 98.2 Pulse 79 Resp 20 B/P (MAP) 107/56 (73) Pulse Ox 100 100 O2 Delivery Nasal Cannula Nasal Cannula Nasal Cannula Nasal Cannula O2 Flow Rate 2.0 2.0 2.0 2.0 04/11/19 04/11/19 04/12/19 04/12/19 20:55 22:32 02:44 06:27 Temp 97.6 98.0 97.6 98.0 Pulse 79 78 82 Resp 18 18 B/P (MAP) 107/56 103/51 (68) 126/58 (80) Pulse Ox 99 100 98 O2 Delivery Nasal Cannula Nasal Cannula Nasal Cannula O2 Flow Rate 2.0 2.0 2.0 04/12/19 04/12/19 07:15 08:00 Temp 97.6 97.6 Pulse 80 Resp 20 B/P (MAP) 106/54 (71) Pulse Ox 100 O2 Delivery Nasal Cannula Nasal Cannula O2 Flow Rate 2.0 2.0 Intake and Output 04/11/19 04/11/19 04/12/19 15:00 23:00 07:00 Intake Total 100 ml 270 ml 0 ml Output Total 1 ml 1 ml Balance 100 ml 269 ml -1 ml Nutrition Consultation Dietary Evaluation: Recommendations by RD: Dietary education by RD, Increase Calorie Intake, PPN/TPN Comments: REC dysphagia II/renal/ADA diet w/thin liquids REC Glucerna (chocolate or vanilla) w/lunch and dinner REC Dany (orange) w/lunch and dinner - wound healing REV MVI - wound healing Expected Outcomes/Goals: PO intake to meet >75% est needs Interpretation of weight loss: >10% in 6 months Malnutrition Findings: Body Fat Depletion (Non Severe: Mod to Severe Weight Status: Appropriate SLAVA SETHI MD Apr 12, 2019 10:40
--- NOTE | 2019-04-12 10:51 | PDOC ---
Dialysis Progress Note Dialysis Note Dialysis Note Seen on Hemodialysis, tolerating treatment Okay so far Vitals on Hemodialysis: 115 / 58 78 afeb General Appearance: Alert Oriented x 2 Neck: No JVD + JVP Chest: CTA [place] Heart: S1 S2, ? soft Murmur Abdomen - Soft NTND Extremities - No Edema ESRD: Dialysis as below F 180 NR 3.0 Hrs 3 K 2.5 Ca 140 Na 35 HC03 Qb 350 + Qd 500+ Heparin 0 Units Uf 1-2 Kgs or to dry weight as tolerated May give 25-50 gms of 25% Albumin if needed to maintain Hemodynamic stability Treatment plan reviewed and discussed with cmo Vitals Vital Signs Vital Signs Date Time Temp Pulse Resp B/P (MAP) Pulse Ox O2 Delivery O2 Flow Rate FiO2 04/12/19 08:00 Nasal Cannula 2.0 04/12/19 07:15 97.6 80 20 106/54 (71) 100 97.6 Labs Last Labs Laboratory Tests Test 04/10/19 11:39 04/10/19 12:13 04/10/19 15:00 04/10/19 17:53 Glucose (Fingerstick) 190 mg/dL (70-99) 153 mg/dL (70-99) Troponin I Quantitative 3.689 ng/mL (0.000-0.055) Heparin Anti-Xa Act, Unfractionated 0.22 IU/mL (0.30-0.70) Test 04/10/19 20:44 04/10/19 22:08 04/11/19 05:00 04/11/19 07:54 Glucose (Fingerstick) 184 mg/dL (70-99) 111 mg/dL (70-99) Heparin Anti-Xa Act, Unfractionated 0.13 IU/mL (0.30-0.70) 0.57 IU/mL (0.30-0.70) Test 04/11/19 11:15 04/11/19 11:41 04/11/19 16:39 04/11/19 17:40 Heparin Anti-Xa Act, Unfractionated 0.51 IU/mL (0.30-0.70) 0.40 IU/mL (0.30-0.70) Glucose (Fingerstick) 127 mg/dL (70-99) 161 mg/dL (70-99) Test 04/11/19 21:56 04/12/19 05:15 04/12/19 07:12 Glucose (Fingerstick) 165 mg/dL (70-99) 170 mg/dL (70-99) White Blood Count 4.7 x10^3/uL (4.0-11.0) Red Blood Count 2.98 x10^6/uL (4.30-5.70) Hemoglobin 8.9 g/dL (13.0-17.5) Hematocrit 27.1 % (39.0-53.0) Mean Corpuscular Volume 91 fL (79-100) Mean Corpuscular Hemoglobin 30 pg (25-35) Mean Corpuscular Hemoglobin Concent 33 g/dL (31-37) Red Cell Distribution Width 20.8 % (11.5-14.5) Platelet Count 89 x10^3/uL (140-400) Neutrophils (%) (Auto) 71 % (31-73) Lymphocytes (%) (Auto) 13 % (24-48) Monocytes (%) (Auto) 12 % (0-9) Eosinophils (%) (Auto) 4 % (0-3) Basophils (%) (Auto) 1 % (0-3) Neutrophils # (Auto) 3.3 x10^3/uL (1.8-7.7) Lymphocytes # (Auto) 0.6 x10^3/uL (1.0-4.8) Monocytes # (Auto) 0.5 x10^3/uL (0.0-1.1) Eosinophils # (Auto) 0.2 x10^3/uL (0.0-0.7) Basophils # (Auto) 0.0 x10^3/uL (0.0-0.2) Heparin Anti-Xa Act, Unfractionated 0.36 IU/mL (0.30-0.70) Sodium Level 140 mmol/L (136-145) Potassium Level 4.3 mmol/L (3.5-5.1) Chloride Level 98 mmol/L (98-107) Carbon Dioxide Level 29 mmol/L (21-32) Anion Gap 13 (6-14) Blood Urea Nitrogen 75 mg/dL (8-26) Creatinine 9.9 mg/dL (0.7-1.3) Estimated GFR (Cockcroft-Gault) 5.2 Glucose Level 204 mg/dL (70-99) Calcium Level 8.5 mg/dL (8.5-10.1) Phosphorus Level 7.1 mg/dL (2.6-4.7) Albumin 2.6 g/dL (3.4-5.0) Laboratory Tests Test 04/11/19 11:15 04/11/19 11:41 04/11/19 16:39 04/11/19 17:40 Heparin Anti-Xa Act, Unfractionated 0.51 IU/mL (0.30-0.70) 0.40 IU/mL (0.30-0.70) Glucose (Fingerstick) 127 mg/dL (70-99) 161 mg/dL (70-99) Test 04/11/19 21:56 04/12/19 05:15 04/12/19 07:12 Glucose (Fingerstick) 165 mg/dL (70-99) 170 mg/dL (70-99) White Blood Count 4.7 x10^3/uL (4.0-11.0) Red Blood Count 2.98 x10^6/uL (4.30-5.70) Hemoglobin 8.9 g/dL (13.0-17.5) Hematocrit 27.1 % (39.0-53.0) Mean Corpuscular Volume 91 fL (79-100) Mean Corpuscular Hemoglobin 30 pg (25-35) Mean Corpuscular Hemoglobin Concent 33 g/dL (31-37) Red Cell Distribution Width 20.8 % (11.5-14.5) Platelet Count 89 x10^3/uL (140-400) Neutrophils (%) (Auto) 71 % (31-73) Lymphocytes (%) (Auto) 13 % (24-48) Monocytes (%) (Auto) 12 % (0-9) Eosinophils (%) (Auto) 4 % (0-3) Basophils (%) (Auto) 1 % (0-3) Neutrophils # (Auto) 3.3 x10^3/uL (1.8-7.7) Lymphocytes # (Auto) 0.6 x10^3/uL (1.0-4.8) Monocytes # (Auto) 0.5 x10^3/uL (0.0-1.1) Eosinophils # (Auto) 0.2 x10^3/uL (0.0-0.7) Basophils # (Auto) 0.0 x10^3/uL (0.0-0.2) Heparin Anti-Xa Act, Unfractionated 0.36 IU/mL (0.30-0.70) Sodium Level 140 mmol/L (136-145) Potassium Level 4.3 mmol/L (3.5-5.1) Chloride Level 98 mmol/L (98-107) Carbon Dioxide Level 29 mmol/L (21-32) Anion Gap 13 (6-14) Blood Urea Nitrogen 75 mg/dL (8-26) Creatinine 9.9 mg/dL (0.7-1.3) Estimated GFR (Cockcroft-Gault) 5.2 Glucose Level 204 mg/dL (70-99) Calcium Level 8.5 mg/dL (8.5-10.1) Phosphorus Level 7.1 mg/dL (2.6-4.7) Albumin 2.6 g/dL (3.4-5.0) Assessment Assessment Problems Medical Problems: (1) Acute pulmonary edema Status: Acute (2) Chest pain Status: Acute (3) ESRD (end stage renal disease) on dialysis Status: Acute (4) NSTEMI (non-ST elevated myocardial infarction) Status: Acute Plan Plan of Care Problems Medical Problems: (1) Acute pulmonary edema Status: Acute (2) Chest pain Status: Acute (3) ESRD (end stage renal disease) on dialysis Status: Acute (4) NSTEMI (non-ST elevated myocardial infarction) Status: Acute MUNIRA AARON MD Apr 12, 2019 10:51
[2019-04-12 11:05] VITALS: BP 106/54
[2019-04-12] MEDS: ASPIRIN CHEWABLE 81 MG TABLET. PO SCH (14:05)
[2019-04-12] MEDS: CLOPIDOGREL BISULFATE 75 MG TABLET PO SCH (14:06)
[2019-04-12] MEDS: METOPROLOL TART IMMED RELEASE 25 MG TABLET. PO SCH ×2 (14:06→20:51)
[2019-04-12 14:51] VITALS: BP 127/60
--- NOTE | 2019-04-12 15:17 | NUR ---
Attempted to give patient asa, Plavix, & metoprolol crushed in his chocolate shake but he did not get all of it, he started refusing & wouldn't take in it in his mouth. Patient did not get his daily imdur & lisinopril today either. Patient told this RN & speech therapist to "leave him alone". Will continue to monitor.
--- NOTE | 2019-04-12 16:07 | NUR ---
SS following up with discharge planning. [facility], ; fax [phone], contacted SS and reported that they are unable to accept pt back. They reported that there Gilda CORRIGAN, had contacted [facility] and [facility] was reaching out to family. SS contacted pt's family, Mima, and left voicemail requesting return call to discuss discharge planning. SS will continue to follow for discharge planning.
--- NOTE | 2019-04-12 17:08 | PDOC ---
PULMONARY PROGRESS NOTES Subjective PT LESS SOA ON 02 NC NO INCREASE COUGH MISSED 2 DAYS OF HD Vitals Vital Signs Date Time Temp Pulse Resp B/P (MAP) Pulse Ox O2 Delivery O2 Flow Rate FiO2 04/12/19 16:11 Nasal Cannula 2.0 04/12/19 14:51 97.2 86 18 127/60 (82) 96 97.2 ROS: No Nausea, No Chest Pain, No Abdominal Pain, No Increase Cough General: Alert Lungs: Crackles Cardiovascular: S1 Abdomen: Soft, Non-tender Neuro Exam: Alert Extremities: No Edema Skin: Warm Labs Laboratory Tests Test 04/10/19 17:53 04/10/19 20:44 04/10/19 22:08 04/11/19 05:00 Glucose (Fingerstick) 153 mg/dL (70-99) 184 mg/dL (70-99) Heparin Anti-Xa Act, Unfractionated 0.13 IU/mL (0.30-0.70) 0.57 IU/mL (0.30-0.70) Test 04/11/19 07:54 04/11/19 11:15 04/11/19 11:41 04/11/19 16:39 Glucose (Fingerstick) 111 mg/dL (70-99) 127 mg/dL (70-99) 161 mg/dL (70-99) Heparin Anti-Xa Act, Unfractionated 0.51 IU/mL (0.30-0.70) Test 04/11/19 17:40 04/11/19 21:56 04/12/19 05:15 04/12/19 07:12 Heparin Anti-Xa Act, Unfractionated 0.40 IU/mL (0.30-0.70) 0.36 IU/mL (0.30-0.70) Glucose (Fingerstick) 165 mg/dL (70-99) 170 mg/dL (70-99) White Blood Count 4.7 x10^3/uL (4.0-11.0) Red Blood Count 2.98 x10^6/uL (4.30-5.70) Hemoglobin 8.9 g/dL (13.0-17.5) Hematocrit 27.1 % (39.0-53.0) Mean Corpuscular Volume 91 fL (79-100) Mean Corpuscular Hemoglobin 30 pg (25-35) Mean Corpuscular Hemoglobin Concent 33 g/dL (31-37) Red Cell Distribution Width 20.8 % (11.5-14.5) Platelet Count 89 x10^3/uL (140-400) Neutrophils (%) (Auto) 71 % (31-73) Lymphocytes (%) (Auto) 13 % (24-48) Monocytes (%) (Auto) 12 % (0-9) Eosinophils (%) (Auto) 4 % (0-3) Basophils (%) (Auto) 1 % (0-3) Neutrophils # (Auto) 3.3 x10^3/uL (1.8-7.7) Lymphocytes # (Auto) 0.6 x10^3/uL (1.0-4.8) Monocytes # (Auto) 0.5 x10^3/uL (0.0-1.1) Eosinophils # (Auto) 0.2 x10^3/uL (0.0-0.7) Basophils # (Auto) 0.0 x10^3/uL (0.0-0.2) Sodium Level 140 mmol/L (136-145) Potassium Level 4.3 mmol/L (3.5-5.1) Chloride Level 98 mmol/L (98-107) Carbon Dioxide Level 29 mmol/L (21-32) Anion Gap 13 (6-14) Blood Urea Nitrogen 75 mg/dL (8-26) Creatinine 9.9 mg/dL (0.7-1.3) Estimated GFR (Cockcroft-Gault) 5.2 Glucose Level 204 mg/dL (70-99) Calcium Level 8.5 mg/dL (8.5-10.1) Phosphorus Level 7.1 mg/dL (2.6-4.7) Albumin 2.6 g/dL (3.4-5.0) Test 04/12/19 13:46 04/12/19 16:28 Glucose (Fingerstick) 126 mg/dL (70-99) 140 mg/dL (70-99) Laboratory Tests Test 04/11/19 17:40 04/11/19 21:56 04/12/19 05:15 04/12/19 07:12 Heparin Anti-Xa Act, Unfractionated 0.40 IU/mL (0.30-0.70) 0.36 IU/mL (0.30-0.70) Glucose (Fingerstick) 165 mg/dL (70-99) 170 mg/dL (70-99) White Blood Count 4.7 x10^3/uL (4.0-11.0) Red Blood Count 2.98 x10^6/uL (4.30-5.70) Hemoglobin 8.9 g/dL (13.0-17.5) Hematocrit 27.1 % (39.0-53.0) Mean Corpuscular Volume 91 fL (79-100) Mean Corpuscular Hemoglobin 30 pg (25-35) Mean Corpuscular Hemoglobin Concent 33 g/dL (31-37) Red Cell Distribution Width 20.8 % (11.5-14.5) Platelet Count 89 x10^3/uL (140-400) Neutrophils (%) (Auto) 71 % (31-73) Lymphocytes (%) (Auto) 13 % (24-48) Monocytes (%) (Auto) 12 % (0-9) Eosinophils (%) (Auto) 4 % (0-3) Basophils (%) (Auto) 1 % (0-3) Neutrophils # (Auto) 3.3 x10^3/uL (1.8-7.7) Lymphocytes # (Auto) 0.6 x10^3/uL (1.0-4.8) Monocytes # (Auto) 0.5 x10^3/uL (0.0-1.1) Eosinophils # (Auto) 0.2 x10^3/uL (0.0-0.7) Basophils # (Auto) 0.0 x10^3/uL (0.0-0.2) Sodium Level 140 mmol/L (136-145) Potassium Level 4.3 mmol/L (3.5-5.1) Chloride Level 98 mmol/L (98-107) Carbon Dioxide Level 29 mmol/L (21-32) Anion Gap 13 (6-14) Blood Urea Nitrogen 75 mg/dL (8-26) Creatinine 9.9 mg/dL (0.7-1.3) Estimated GFR (Cockcroft-Gault) 5.2 Glucose Level 204 mg/dL (70-99) Calcium Level 8.5 mg/dL (8.5-10.1) Phosphorus Level 7.1 mg/dL (2.6-4.7) Albumin 2.6 g/dL (3.4-5.0) Test 04/12/19 13:46 04/12/19 16:28 Glucose (Fingerstick) 126 mg/dL (70-99) 140 mg/dL (70-99) Medications Active Scripts Medications Dose Route/Sig Max Daily Dose Days Date Category Aspirin 81 Mg Tab.chew 81 Mg PO DAILY 04/10/19 Reported Atorvastatin Calcium 40 Mg Tablet 40 Mg PO HS 04/10/19 Reported Plavix (Clopidogrel Bisulfate) 75 Mg Tablet 75 Mg PO DAILY 04/10/19 Reported Melatonin 3 Mg Tablet 3 Mg PO HS 04/10/19 Reported Nephplex Rx Tablet (Vit B Cmplx No3/Fa/C/Biot/Zinc) 1 Each Tablet 1 Tab PO DAILY 30 04/10/19 Reported Lantus Solostar (Insulin Glargine,Hum.rec.anlog) 100 Unit/1 Ml Insuln.pen 12 Unit SQ HS 04/10/19 Reported Novolog (Insulin Aspart) 100 Unit/1 Ml Vial 3 Unit SQ TIDWMEALS 04/10/19 Reported Renvela (Sevelamer Carbonate) 800 Mg Tablet 800 Mg PO TIDWMEALS 04/10/19 Reported Senna (Sennosides) 8.8 Mg/5 Ml Syrup 8.8 Mg PO DAILY PRN 04/10/19 Reported Impression . IMPRESSION: 1. Acute hypoxemic respiratory failure. 2. Acute on chronic systolic heart failure. 3. End-stage renal disease. 4. Cardiomyopathy with decreased ejection fraction. 5. Non-ST segment elevation myocardial infarction. 6. Moderate to severe coronary artery disease. 7. Hypertension. 8. End-stage renal disease, on hemodialysis. Plan . NEED PT OT NEGATIVE FLUID BALANCE\ UP TO CHAIR 02 NO ANITBX NEBS PRN SINCERE GARCES MD Apr 12, 2019 17:08
--- NOTE | 2019-04-12 18:13 | PDOC ---
PROGRESS NOTES Subjective Subjective Patient seen and examined The patient is more confused today. Objective Objective Vital Signs Date Time Temp Pulse Resp B/P (MAP) Pulse Ox O2 Delivery O2 Flow Rate FiO2 04/12/19 16:11 Nasal Cannula 2.0 04/12/19 14:51 97.2 86 18 127/60 (82) 96 97.2 Intake and Output 04/12/19 07:00 Intake Total 370 ml Output Total 2 ml Balance 368 ml Intake Oral 370 ml Output Urine Total 2 ml # Bowel Movements 3 Physical Exam Abdomen: Normal bowel sounds Heart: Regular rate General: mild distress Lungs: Other (slightly decreased breath sounds) Assessment Assessment Problems Medical Problems: (1) Acute pulmonary edema Status: Acute (2) Chest pain Status: Acute (3) ESRD (end stage renal disease) on dialysis Status: Acute (4) NSTEMI (non-ST elevated myocardial infarction) Status: Acute 1. Acute respiratory failure with a/c CHF; improved, off BiPAP. Continuing medical treatment. 2. Acute on chronic systolic CHF secondary to missed HD; Echo showed LVEF 20- 25%. previously 50% per echo 11/2018. Better compensated following UF 3. NSTEMI; peak trop 4.0. 4. CAD; severe CAD. Cath 12/01 as noted below. Moderate to severe LAD disease and LCx subtotal occlusion (unsuccessful attempt for PCI). RCA was nondominant and patent. Deemed poor surgical candidate due to comorbidities. Treated medically. At this time we'll continue medical treatment and gradually increase activities. Patient states he routinely follows up@ and would be a candidate for the heart failure clinic. 5. ESRD on HD; uremic, missed HD. As per the renal service. 6. Hypertension; presently mildly hypotensive. 7. Hyperlipidemia; statin. LDL 65 8. Diabetes, II Comment Review of Relevant I have reviewed the following items ngozi (where applicable) has been applied. Labs Laboratory Tests Test 04/10/19 20:44 04/10/19 22:08 04/11/19 05:00 04/11/19 07:54 Glucose (Fingerstick) 184 mg/dL (70-99) 111 mg/dL (70-99) Heparin Anti-Xa Act, Unfractionated 0.13 IU/mL (0.30-0.70) 0.57 IU/mL (0.30-0.70) Test 04/11/19 11:15 04/11/19 11:41 04/11/19 16:39 04/11/19 17:40 Heparin Anti-Xa Act, Unfractionated 0.51 IU/mL (0.30-0.70) 0.40 IU/mL (0.30-0.70) Glucose (Fingerstick) 127 mg/dL (70-99) 161 mg/dL (70-99) Test 04/11/19 21:56 04/12/19 05:15 04/12/19 07:12 04/12/19 13:46 Glucose (Fingerstick) 165 mg/dL (70-99) 170 mg/dL (70-99) 126 mg/dL (70-99) White Blood Count 4.7 x10^3/uL (4.0-11.0) Red Blood Count 2.98 x10^6/uL (4.30-5.70) Hemoglobin 8.9 g/dL (13.0-17.5) Hematocrit 27.1 % (39.0-53.0) Mean Corpuscular Volume 91 fL (79-100) Mean Corpuscular Hemoglobin 30 pg (25-35) Mean Corpuscular Hemoglobin Concent 33 g/dL (31-37) Red Cell Distribution Width 20.8 % (11.5-14.5) Platelet Count 89 x10^3/uL (140-400) Neutrophils (%) (Auto) 71 % (31-73) Lymphocytes (%) (Auto) 13 % (24-48) Monocytes (%) (Auto) 12 % (0-9) Eosinophils (%) (Auto) 4 % (0-3) Basophils (%) (Auto) 1 % (0-3) Neutrophils # (Auto) 3.3 x10^3/uL (1.8-7.7) Lymphocytes # (Auto) 0.6 x10^3/uL (1.0-4.8) Monocytes # (Auto) 0.5 x10^3/uL (0.0-1.1) Eosinophils # (Auto) 0.2 x10^3/uL (0.0-0.7) Basophils # (Auto) 0.0 x10^3/uL (0.0-0.2) Heparin Anti-Xa Act, Unfractionated 0.36 IU/mL (0.30-0.70) Sodium Level 140 mmol/L (136-145) Potassium Level 4.3 mmol/L (3.5-5.1) Chloride Level 98 mmol/L (98-107) Carbon Dioxide Level 29 mmol/L (21-32) Anion Gap 13 (6-14) Blood Urea Nitrogen 75 mg/dL (8-26) Creatinine 9.9 mg/dL (0.7-1.3) Estimated GFR (Cockcroft-Gault) 5.2 Glucose Level 204 mg/dL (70-99) Calcium Level 8.5 mg/dL (8.5-10.1) Phosphorus Level 7.1 mg/dL (2.6-4.7) Albumin 2.6 g/dL (3.4-5.0) Test 04/12/19 16:28 Glucose (Fingerstick) 140 mg/dL (70-99) Laboratory Tests Test 04/11/19 21:56 04/12/19 05:15 04/12/19 07:12 04/12/19 13:46 Glucose (Fingerstick) 165 mg/dL (70-99) 170 mg/dL (70-99) 126 mg/dL (70-99) White Blood Count 4.7 x10^3/uL (4.0-11.0) Red Blood Count 2.98 x10^6/uL (4.30-5.70) Hemoglobin 8.9 g/dL (13.0-17.5) Hematocrit 27.1 % (39.0-53.0) Mean Corpuscular Volume 91 fL (79-100) Mean Corpuscular Hemoglobin 30 pg (25-35) Mean Corpuscular Hemoglobin Concent 33 g/dL (31-37) Red Cell Distribution Width 20.8 % (11.5-14.5) Platelet Count 89 x10^3/uL (140-400) Neutrophils (%) (Auto) 71 % (31-73) Lymphocytes (%) (Auto) 13 % (24-48) Monocytes (%) (Auto) 12 % (0-9) Eosinophils (%) (Auto) 4 % (0-3) Basophils (%) (Auto) 1 % (0-3) Neutrophils # (Auto) 3.3 x10^3/uL (1.8-7.7) Lymphocytes # (Auto) 0.6 x10^3/uL (1.0-4.8) Monocytes # (Auto) 0.5 x10^3/uL (0.0-1.1) Eosinophils # (Auto) 0.2 x10^3/uL (0.0-0.7) Basophils # (Auto) 0.0 x10^3/uL (0.0-0.2) Heparin Anti-Xa Act, Unfractionated 0.36 IU/mL (0.30-0.70) Sodium Level 140 mmol/L (136-145) Potassium Level 4.3 mmol/L (3.5-5.1) Chloride Level 98 mmol/L (98-107) Carbon Dioxide Level 29 mmol/L (21-32) Anion Gap 13 (6-14) Blood Urea Nitrogen 75 mg/dL (8-26) Creatinine 9.9 mg/dL (0.7-1.3) Estimated GFR (Cockcroft-Gault) 5.2 Glucose Level 204 mg/dL (70-99) Calcium Level 8.5 mg/dL (8.5-10.1) Phosphorus Level 7.1 mg/dL (2.6-4.7) Albumin 2.6 g/dL (3.4-5.0) Test 04/12/19 16:28 Glucose (Fingerstick) 140 mg/dL (70-99) Medications Current Medications Albuterol/ Ipratropium (Duoneb) 3 ml 1X ONCE NEB Last administered on 04/09/19at 21:54; Start 04/09/19 at 22:00; Stop 04/09/19 at 22:01; Status DC Morphine Sulfate (Morphine Sulfate) 2 mg 1X ONCE IV ; Start 04/09/19 at 22:30; Stop 04/09/19 at 22:31; Status DC Heparin Sodium (Porcine) (Heparin Sodium) 3,600 unit 1X ONCE IV Last administered on 04/10/19at 00:24; Start 04/09/19 at 23:15; Stop 04/09/19 at 23:16; Status DC Heparin Sodium/ Dextrose 250 ml @ 0 mls/hr CONT PRN IV PER PROTOCOL Last administered on 04/12/19at 01:46; Start 04/09/19 at 23:15 Heparin Sodium (Porcine) (Heparin Sodium) 1,500 unit PRN Q6HRS PRN IV FOR UFH LEVEL LESS THAN 0.2 Last administered on 04/10/19at 23:30; Start 04/09/19 at 23:15 Ondansetron HCl (Zofran) 4 mg PRN Q8HRS PRN IV NAUSEA/VOMITING; Start 04/09/19 at 23:45; Stop 04/10/19 at 23:44; Status DC Acetaminophen (Tylenol) 650 mg PRN Q4HRS PRN PO FEVER; Start 04/09/19 at 23:45; Stop 04/10/19 at 23:44; Status DC Nitroglycerin (Nitrostat) 0.4 mg PRN Q5MIN PRN SL CHEST PAIN; Start 04/09/19 at 23:45; Stop 04/10/19 at 23:44; Status DC Albuterol/ Ipratropium (Duoneb) 3 ml RTQID NEB Last administered on 04/10/19at 19:36; Start 04/10/19 at 08:00; Stop 04/11/19 at 07:59; Status DC Info (Anti-Coagulation Monitoring By Pharmacy) 1 each PRN DAILY PRN MC SEE COMMENTS Last administered on 04/12/19at 08:23; Start 04/10/19 at 09:15 Aspirin (Children'S Aspirin) 81 mg DAILY PO Last administered on 04/12/19at 14:05; Start 04/10/19 at 11:00 Atorvastatin Calcium (Lipitor) 40 mg HS PO Last administered on 04/11/19at 20:54; Start 04/10/19 at 21:00 Clopidogrel Bisulfate (Plavix) 75 mg DAILY PO Last administered on 04/12/19at 14:06; Start 04/10/19 at 11:00 Isosorbide Mononitrate (Imdur) 30 mg DAILY PO Last administered on 04/10/19at 18:20; Start 04/10/19 at 11:00 Metoprolol Tartrate (Lopressor) 12.5 mg BID PO Last administered on 04/12/19at 14:06; Start 04/10/19 at 11:00 Sodium Chloride 1,000 ml @ 1,000 mls/hr Q1H PRN IV hypotension; Start 04/10/19 at 12:00; Stop 04/10/19 at 17:59; Status DC Sodium Chloride 1,000 ml @ 400 mls/hr Q2H30M PRN IV PATENCY; Start 04/10/19 at 12:00; Stop 04/10/19 at 23:59; Status DC Info (PHARMACY MONITORING -- do not chart) 1 each PRN DAILY PRN MC SEE COMMENTS; Start 04/10/19 at 15:15; Status UNV Info (PHARMACY MONITORING -- do not chart) 1 each PRN DAILY PRN MC SEE COMMENTS; Start 04/10/19 at 15:15; Status Cancel Sodium Chloride 1,000 ml @ 1,000 mls/hr Q1H PRN IV hypotension; Start 04/10/19 at 12:00; Stop 04/10/19 at 17:59; Status DC Sodium Chloride 1,000 ml @ 400 mls/hr Q2H30M PRN IV PATENCY; Start 04/10/19 at 12:00; Stop 04/10/19 at 23:59; Status DC Info (PHARMACY MONITORING -- do not chart) 1 each PRN DAILY PRN MC SEE COMMENTS; Start 04/10/19 at 16:00; Status UNV Info (PHARMACY MONITORING -- do not chart) 1 each PRN DAILY PRN MC SEE COMMENTS; Start 04/10/19 at 16:00; Stop 04/12/19 at 08:21; Status DC Lisinopril (Prinivil) 5 mg DAILY PO Last administered on 04/10/19at 18:20; Start 04/10/19 at 17:00 Albuterol Sulfate (Ventolin Neb Soln) 2.5 mg PRN Q4HRS PRN INH SHORTNESS OF BREATH; Start 04/10/19 at 17:45 Info (CONTRAST GIVEN -- Rx MONITORING) 1 each PRN DAILY PRN MC SEE COMMENTS; Start 04/10/19 at 18:00; Stop 04/12/19 at 17:59; Status DC Morphine Sulfate (Morphine Sulfate) 2 mg PRN Q2HR PRN IV PAIN Last administered on 04/10/19at 20:04; Start 04/10/19 at 19:45 Albuterol/ Ipratropium (Duoneb) 3 ml RTQID NEB Last administered on 04/12/19at 16:10; Start 04/11/19 at 08:00 Sodium Chloride 1,000 ml @ 1,000 mls/hr Q1H PRN IV hypotension; Start 04/12/19 at 07:43; Stop 04/12/19 at 13:42; Status DC Sodium Chloride 1,000 ml @ 400 mls/hr Q2H30M PRN IV PATENCY; Start 04/12/19 at 07:43; Stop 04/12/19 at 19:42 Info (PHARMACY MONITORING -- do not chart) 1 each PRN DAILY PRN MC SEE COMMENTS; Start 04/12/19 at 07:45; Status UNV Info (PHARMACY MONITORING -- do not chart) 1 each PRN DAILY PRN MC SEE COMMENTS; Start 04/12/19 at 07:45 Active Scripts Active Reported Aspirin 81 Mg Tab.chew 81 Mg PO DAILY Atorvastatin Calcium 40 Mg Tablet 40 Mg PO HS Plavix (Clopidogrel Bisulfate) 75 Mg Tablet 75 Mg PO DAILY Melatonin 3 Mg Tablet 3 Mg PO HS Nephplex Rx Tablet (Vit B Cmplx No3/Fa/C/Biot/Zinc) 1 Each Tablet 1 Tab PO DAILY 30 Days Lantus Solostar (Insulin Glargine,Hum.rec.anlog) 100 Unit/1 Ml Insuln.pen 12 Unit SQ HS Novolog (Insulin Aspart) 100 Unit/1 Ml Vial 3 Unit SQ TIDWMEALS Renvela (Sevelamer Carbonate) 800 Mg Tablet 800 Mg PO TIDWMEALS Senna (Sennosides) 8.8 Mg/5 Ml Syrup 8.8 Mg PO DAILY PRN Vitals/I & O Vital Sign - Last 24 Hours 04/11/19 04/11/19 04/11/19 04/11/19 19:15 19:58 20:00 20:55 Temp 98.2 98.2 Pulse 79 79 Resp 20 B/P (MAP) 107/56 (73) 107/56 Pulse Ox 100 100 O2 Delivery Nasal Cannula Nasal Cannula Nasal Cannula O2 Flow Rate 2.0 2.0 2.0 04/11/19 04/12/19 04/12/19 04/12/19 22:32 02:44 06:27 07:15 Temp 97.6 98.0 97.6 97.6 98.0 97.6 Pulse 78 82 80 Resp 18 18 20 B/P (MAP) 103/51 (68) 126/58 (80) 106/54 (71) Pulse Ox 99 100 98 100 O2 Delivery Nasal Cannula Nasal Cannula Nasal Cannula Nasal Cannula O2 Flow Rate 2.0 2.0 2.0 2.0 04/12/19 04/12/19 04/12/19 04/12/19 08:00 11:05 13:20 14:06 Temp Pulse 87 Resp B/P (MAP) 127/60 Pulse Ox 98 O2 Delivery Nasal Cannula Nasal Cannula O2 Flow Rate 2.0 2.0 04/12/19 04/12/19 14:51 16:11 Temp 97.2 97.2 Pulse 86 Resp 18 B/P (MAP) 127/60 (82) Pulse Ox 96 O2 Delivery Nasal Cannula Nasal Cannula O2 Flow Rate 2.0 2.0 Intake and Output 04/11/19 04/11/19 04/12/19 15:00 23:00 07:00 Intake Total 100 ml 270 ml 0 ml Output Total 1 ml 1 ml Balance 100 ml 269 ml -1 ml Nutrition Consultation Dietary Evaluation: Recommendations by RD: Dietary education by RD, Increase Calorie Intake, PPN/TPN Comments: REC dysphagia II/renal/ADA diet w/thin liquids REC Glucerna (chocolate or vanilla) w/lunch and dinner REC Dany (orange) w/lunch and dinner - wound healing REV MVI - wound healing Expected Outcomes/Goals: PO intake to meet >75% est needs Interpretation of weight loss: >10% in 6 months Malnutrition Findings: Body Fat Depletion (Non Severe: Mod to Severe Weight Status: Appropriate AIXA HOLGUIN MD Apr 12, 2019 18:13
[2019-04-12 19:15] VITALS: BP 117/58
[2019-04-12] MEDS: ATORVASTATIN CALCIUM 40 MG TABLET. PO SCH (20:50)
[2019-04-12 23:55] VITALS: BP 135/65
[2019-04-13] MEDS: HEPARIN 25,000UTS/250ML PREMIX 250 ML IV PRN (02:45)
[2019-04-13 03:45] VITALS: BP 110/56
[2019-04-13 07:00] VITALS: BP 125/67
[2019-04-13] MEDS: IPRATRPIUM/ALBUTEROL 0.5/2.5MG 3 ML NEBU. NEB SCH ×4 (07:24→19:33)
[2019-04-13] MEDS: ISOSORBIDE MONONITRATE ER 30 MG TAB.ER.24H PO SCH (08:49)
[2019-04-13] MEDS: ASPIRIN CHEWABLE 81 MG TABLET. PO SCH (08:50)
[2019-04-13] MEDS: CLOPIDOGREL BISULFATE 75 MG TABLET PO SCH (08:50)
[2019-04-13] MEDS: LISINOPRIL 5 MG TABLET. PO SCH (08:50)
[2019-04-13] MEDS: METOPROLOL TART IMMED RELEASE 25 MG TABLET. PO SCH ×2 (08:50→22:08)
--- NOTE | 2019-04-13 09:33 | PDOC ---
PROGRESS NOTES History of Present Illness History of Present Illness VTE Prophylaxis Ordered VTE Prophylaxis Devices: Yes VTE Pharmacological Prophylaxi: Yes Assessment/Plan Assessment/Plan Impression: Acute pulmonary edema CHEST PAIN, UNSTABLE Hazy bilateral airspace disease from infiltrates or edema. Chest pain ACUTE NSTEMI (non-ST elevated myocardial infarction) severe LAD disease and LCx subtotal occlusion (unsuccessful attempt for PCI). RCA was nondominant and patent. poor surgical candidate due to comorbidities ESRD (end stage renal disease) on dialysis ADMITTED [facility] BED CONSULT CARDIOLOGY CONSULT NEPHROLOGY PULM CONSULT dvt prophylaxis followup with HF clinic upon discharge. REMAINS WEAK, SLOW TO IMPROVE * 2 weeks Discharge Recommendations * [facility] Discharge Recommendation - DME * Rolling Walker needed * and ambulation safely Discharge Recommendation Comments * SNU (possibly return to [facility]) 27 min pt exam, chart review, > 50% of time spent with exam, chart review, pt care coordination Vitals Vitals Vital Signs Date Time Temp Pulse Resp B/P (MAP) Pulse Ox O2 Delivery O2 Flow Rate FiO2 04/13/19 08:50 75 04/13/19 07:25 97 Nasal Cannula 2.0 04/13/19 07:00 97.9 16 125/67 (86) 97.9 Physical Exam General: mild distress Heart: Regular rate Lungs: Crackles Abdomen: Normal bowel sounds Extremities: No edema, Normal pulses Skin: No significant lesion Labs LABS Laboratory Tests Test 04/12/19 13:46 04/12/19 16:28 04/12/19 21:02 04/13/19 04:45 Glucose (Fingerstick) 126 mg/dL (70-99) 140 mg/dL (70-99) 131 mg/dL (70-99) Heparin Anti-Xa Act, Unfractionated 0.62 IU/mL (0.30-0.70) Test 04/13/19 08:06 Glucose (Fingerstick) 120 mg/dL (70-99) Assessment and Plan Assessmemt and Plan Problems Medical Problems: (1) Acute pulmonary edema Status: Acute (2) Chest pain Status: Acute (3) ESRD (end stage renal disease) on dialysis Status: Acute (4) NSTEMI (non-ST elevated myocardial infarction) Status: Acute Comment Review of Relevant I have reviewed the following items ngozi (where applicable) has been applied. Labs Laboratory Tests Test 04/11/19 11:15 04/11/19 11:41 04/11/19 16:39 04/11/19 17:40 Heparin Anti-Xa Act, Unfractionated 0.51 IU/mL (0.30-0.70) 0.40 IU/mL (0.30-0.70) Glucose (Fingerstick) 127 mg/dL (70-99) 161 mg/dL (70-99) Test 04/11/19 21:56 04/12/19 05:15 04/12/19 07:12 04/12/19 13:46 Glucose (Fingerstick) 165 mg/dL (70-99) 170 mg/dL (70-99) 126 mg/dL (70-99) White Blood Count 4.7 x10^3/uL (4.0-11.0) Red Blood Count 2.98 x10^6/uL (4.30-5.70) Hemoglobin 8.9 g/dL (13.0-17.5) Hematocrit 27.1 % (39.0-53.0) Mean Corpuscular Volume 91 fL (79-100) Mean Corpuscular Hemoglobin 30 pg (25-35) Mean Corpuscular Hemoglobin Concent 33 g/dL (31-37) Red Cell Distribution Width 20.8 % (11.5-14.5) Platelet Count 89 x10^3/uL (140-400) Neutrophils (%) (Auto) 71 % (31-73) Lymphocytes (%) (Auto) 13 % (24-48) Monocytes (%) (Auto) 12 % (0-9) Eosinophils (%) (Auto) 4 % (0-3) Basophils (%) (Auto) 1 % (0-3) Neutrophils # (Auto) 3.3 x10^3/uL (1.8-7.7) Lymphocytes # (Auto) 0.6 x10^3/uL (1.0-4.8) Monocytes # (Auto) 0.5 x10^3/uL (0.0-1.1) Eosinophils # (Auto) 0.2 x10^3/uL (0.0-0.7) Basophils # (Auto) 0.0 x10^3/uL (0.0-0.2) Heparin Anti-Xa Act, Unfractionated 0.36 IU/mL (0.30-0.70) Sodium Level 140 mmol/L (136-145) Potassium Level 4.3 mmol/L (3.5-5.1) Chloride Level 98 mmol/L (98-107) Carbon Dioxide Level 29 mmol/L (21-32) Anion Gap 13 (6-14) Blood Urea Nitrogen 75 mg/dL (8-26) Creatinine 9.9 mg/dL (0.7-1.3) Estimated GFR (Cockcroft-Gault) 5.2 Glucose Level 204 mg/dL (70-99) Calcium Level 8.5 mg/dL (8.5-10.1) Phosphorus Level 7.1 mg/dL (2.6-4.7) Albumin 2.6 g/dL (3.4-5.0) Test 04/12/19 16:28 04/12/19 21:02 04/13/19 04:45 04/13/19 08:06 Glucose (Fingerstick) 140 mg/dL (70-99) 131 mg/dL (70-99) 120 mg/dL (70-99) Heparin Anti-Xa Act, Unfractionated 0.62 IU/mL (0.30-0.70) Laboratory Tests Test 04/12/19 13:46 04/12/19 16:28 04/12/19 21:02 04/13/19 04:45 Glucose (Fingerstick) 126 mg/dL (70-99) 140 mg/dL (70-99) 131 mg/dL (70-99) Heparin Anti-Xa Act, Unfractionated 0.62 IU/mL (0.30-0.70) Test 04/13/19 08:06 Glucose (Fingerstick) 120 mg/dL (70-99) Medications Current Medications Albuterol/ Ipratropium (Duoneb) 3 ml 1X ONCE NEB Last administered on 04/09/19at 21:54; Start 04/09/19 at 22:00; Stop 04/09/19 at 22:01; Status DC Morphine Sulfate (Morphine Sulfate) 2 mg 1X ONCE IV ; Start 04/09/19 at 22:30; Stop 04/09/19 at 22:31; Status DC Heparin Sodium (Porcine) (Heparin Sodium) 3,600 unit 1X ONCE IV Last administered on 04/10/19at 00:24; Start 04/09/19 at 23:15; Stop 04/09/19 at 23:16; Status DC Heparin Sodium/ Dextrose 250 ml @ 0 mls/hr CONT PRN IV PER PROTOCOL Last administered on 04/13/19at 02:45; Start 04/09/19 at 23:15 Heparin Sodium (Porcine) (Heparin Sodium) 1,500 unit PRN Q6HRS PRN IV FOR UFH LEVEL LESS THAN 0.2 Last administered on 04/10/19at 23:30; Start 04/09/19 at 23:15 Ondansetron HCl (Zofran) 4 mg PRN Q8HRS PRN IV NAUSEA/VOMITING; Start 04/09/19 at 23:45; Stop 04/10/19 at 23:44; Status DC Acetaminophen (Tylenol) 650 mg PRN Q4HRS PRN PO FEVER; Start 04/09/19 at 23:45; Stop 04/10/19 at 23:44; Status DC Nitroglycerin (Nitrostat) 0.4 mg PRN Q5MIN PRN SL CHEST PAIN; Start 04/09/19 at 23:45; Stop 04/10/19 at 23:44; Status DC Albuterol/ Ipratropium (Duoneb) 3 ml RTQID NEB Last administered on 04/10/19at 19:36; Start 04/10/19 at 08:00; Stop 04/11/19 at 07:59; Status DC Info (Anti-Coagulation Monitoring By Pharmacy) 1 each PRN DAILY PRN MC SEE COMMENTS Last administered on 04/12/19at 08:23; Start 04/10/19 at 09:15 Aspirin (Children'S Aspirin) 81 mg DAILY PO Last administered on 04/13/19at 08:50; Start 04/10/19 at 11:00 Atorvastatin Calcium (Lipitor) 40 mg HS PO Last administered on 04/12/19at 20:50; Start 04/10/19 at 21:00 Clopidogrel Bisulfate (Plavix) 75 mg DAILY PO Last administered on 04/13/19at 08:50; Start 04/10/19 at 11:00 Isosorbide Mononitrate (Imdur) 30 mg DAILY PO Last administered on 04/13/19at 08:49; Start 04/10/19 at 11:00 Metoprolol Tartrate (Lopressor) 12.5 mg BID PO Last administered on 04/13/19at 08:50; Start 04/10/19 at 11:00 Sodium Chloride 1,000 ml @ 1,000 mls/hr Q1H PRN IV hypotension; Start 04/10/19 at 12:00; Stop 04/10/19 at 17:59; Status DC Sodium Chloride 1,000 ml @ 400 mls/hr Q2H30M PRN IV PATENCY; Start 04/10/19 at 12:00; Stop 04/10/19 at 23:59; Status DC Info (PHARMACY MONITORING -- do not chart) 1 each PRN DAILY PRN MC SEE COMMENTS; Start 04/10/19 at 15:15; Status UNV Info (PHARMACY MONITORING -- do not chart) 1 each PRN DAILY PRN MC SEE COMMENTS; Start 04/10/19 at 15:15; Status Cancel Sodium Chloride 1,000 ml @ 1,000 mls/hr Q1H PRN IV hypotension; Start 04/10/19 at 12:00; Stop 04/10/19 at 17:59; Status DC Sodium Chloride 1,000 ml @ 400 mls/hr Q2H30M PRN IV PATENCY; Start 04/10/19 at 12:00; Stop 04/10/19 at 23:59; Status DC Info (PHARMACY MONITORING -- do not chart) 1 each PRN DAILY PRN MC SEE COMMENTS; Start 04/10/19 at 16:00; Status UNV Info (PHARMACY MONITORING -- do not chart) 1 each PRN DAILY PRN MC SEE COMMENTS; Start 04/10/19 at 16:00; Stop 04/12/19 at 08:21; Status DC Lisinopril (Prinivil) 5 mg DAILY PO Last administered on 04/13/19at 08:50; Start 04/10/19 at 17:00 Albuterol Sulfate (Ventolin Neb Soln) 2.5 mg PRN Q4HRS PRN INH SHORTNESS OF BREATH; Start 04/10/19 at 17:45 Info (CONTRAST GIVEN -- Rx MONITORING) 1 each PRN DAILY PRN MC SEE COMMENTS; Start 04/10/19 at 18:00; Stop 04/12/19 at 17:59; Status DC Morphine Sulfate (Morphine Sulfate) 2 mg PRN Q2HR PRN IV PAIN Last administered on 04/10/19at 20:04; Start 04/10/19 at 19:45 Albuterol/ Ipratropium (Duoneb) 3 ml RTQID NEB Last administered on 04/13/19at 0 7:24; Start 04/11/19 at 08:00 Sodium Chloride 1,000 ml @ 1,000 mls/hr Q1H PRN IV hypotension; Start 04/12/19 at 07:43; Stop 04/12/19 at 13:42; Status DC Sodium Chloride 1,000 ml @ 400 mls/hr Q2H30M PRN IV PATENCY; Start 04/12/19 at 07:43; Stop 04/12/19 at 19:42; Status DC Info (PHARMACY MONITORING -- do not chart) 1 each PRN DAILY PRN MC SEE COMMENTS; Start 04/12/19 at 07:45; Status UNV Info (PHARMACY MONITORING -- do not chart) 1 each PRN DAILY PRN MC SEE COMMENTS; Start 04/12/19 at 07:45 Active Scripts Active Reported Aspirin 81 Mg Tab.chew 81 Mg PO DAILY Atorvastatin Calcium 40 Mg Tablet 40 Mg PO HS Plavix (Clopidogrel Bisulfate) 75 Mg Tablet 75 Mg PO DAILY Melatonin 3 Mg Tablet 3 Mg PO HS Nephplex Rx Tablet (Vit B Cmplx No3/Fa/C/Biot/Zinc) 1 Each Tablet 1 Tab PO DAILY 30 Days Lantus Solostar (Insulin Glargine,Hum.rec.anlog) 100 Unit/1 Ml Insuln.pen 12 Unit SQ HS Novolog (Insulin Aspart) 100 Unit/1 Ml Vial 3 Unit SQ TIDWMEALS Renvela (Sevelamer Carbonate) 800 Mg Tablet 800 Mg PO TIDWMEALS Senna (Sennosides) 8.8 Mg/5 Ml Syrup 8.8 Mg PO DAILY PRN Vitals/I & O Vital Sign - Last 24 Hours 04/12/19 04/12/19 04/12/19 04/12/19 11:05 13:20 14:06 14:51 Temp 97.2 97.2 Pulse 87 86 Resp 18 B/P (MAP) 127/60 127/60 (82) Pulse Ox 98 96 O2 Delivery Nasal Cannula Nasal Cannula O2 Flow Rate 2.0 2.0 04/12/19 04/12/19 04/12/19 04/12/19 16:11 19:15 19:32 20:27 Temp 98.0 98.0 Pulse 77 Resp 21 B/P (MAP) 117/58 (77) Pulse Ox 100 98 O2 Delivery Nasal Cannula Nasal Cannula Nasal Cannula Nasal Cannula O2 Flow Rate 2.0 2.0 2.0 2.0 04/12/19 04/12/19 04/13/19 04/13/19 20:51 23:55 03:45 07:00 Temp 98.1 97.9 97.9 98.1 97.9 97.9 Pulse 73 76 78 71 Resp 20 17 16 B/P (MAP) 117/58 135/65 (88) 110/56 (74) 125/67 (86) Pulse Ox 100 98 100 O2 Delivery Nasal Cannula Room Air Room Air O2 Flow Rate 2.0 04/13/19 04/13/19 04/13/19 04/13/19 07:25 08:49 08:50 08:50 Pulse 72 75 75 Pulse Ox 97 O2 Delivery Nasal Cannula O2 Flow Rate 2.0 Intake and Output 04/12/19 04/12/19 04/13/19 15:00 23:00 07:00 Intake Total 360 ml 270 ml 120 ml Output Total 0 ml 0 ml Balance 360 ml 270 ml 120 ml Nutrition Consultation Dietary Evaluation: Recommendations by RD: Dietary education by RD, Increase Calorie Intake, PPN/TPN Comments: REC dysphagia II/renal/ADA diet w/thin liquids REC Glucerna (chocolate or vanilla) w/lunch and dinner REC Dany (orange) w/lunch and dinner - wound healing REV MVI - wound healing Expected Outcomes/Goals: PO intake to meet >75% est needs Interpretation of weight loss: >10% in 6 months Malnutrition Findings: Body Fat Depletion (Non Severe: Mod to Severe Weight Status: Appropriate SLAVA SETHI MD Apr 13, 2019 09:33
[2019-04-13 11:00] VITALS: BP 109/57
--- NOTE | 2019-04-13 11:05 | PDOC ---
PULMONARY PROGRESS NOTES Subjective NO NEW COMPLAINTS MISSED 2 DAYS OF HD DID NOT FEEL WELL Vitals Vital Signs Date Time Temp Pulse Resp B/P (MAP) Pulse Ox O2 Delivery O2 Flow Rate FiO2 04/13/19 08:50 75 04/13/19 07:25 97 Nasal Cannula 2.0 04/13/19 07:00 97.9 16 125/67 (86) 97.9 ROS: No Nausea, No Chest Pain, No Abdominal Pain, No Increase Cough General: Alert Lungs: Crackles Cardiovascular: S1 Abdomen: Soft, Non-tender Neuro Exam: Alert Extremities: No Edema Skin: Warm Labs Laboratory Tests Test 04/11/19 11:15 04/11/19 11:41 04/11/19 16:39 04/11/19 17:40 Heparin Anti-Xa Act, Unfractionated 0.51 IU/mL (0.30-0.70) 0.40 IU/mL (0.30-0.70) Glucose (Fingerstick) 127 mg/dL (70-99) 161 mg/dL (70-99) Test 04/11/19 21:56 04/12/19 05:15 04/12/19 07:12 04/12/19 13:46 Glucose (Fingerstick) 165 mg/dL (70-99) 170 mg/dL (70-99) 126 mg/dL (70-99) White Blood Count 4.7 x10^3/uL (4.0-11.0) Red Blood Count 2.98 x10^6/uL (4.30-5.70) Hemoglobin 8.9 g/dL (13.0-17.5) Hematocrit 27.1 % (39.0-53.0) Mean Corpuscular Volume 91 fL (79-100) Mean Corpuscular Hemoglobin 30 pg (25-35) Mean Corpuscular Hemoglobin Concent 33 g/dL (31-37) Red Cell Distribution Width 20.8 % (11.5-14.5) Platelet Count 89 x10^3/uL (140-400) Neutrophils (%) (Auto) 71 % (31-73) Lymphocytes (%) (Auto) 13 % (24-48) Monocytes (%) (Auto) 12 % (0-9) Eosinophils (%) (Auto) 4 % (0-3) Basophils (%) (Auto) 1 % (0-3) Neutrophils # (Auto) 3.3 x10^3/uL (1.8-7.7) Lymphocytes # (Auto) 0.6 x10^3/uL (1.0-4.8) Monocytes # (Auto) 0.5 x10^3/uL (0.0-1.1) Eosinophils # (Auto) 0.2 x10^3/uL (0.0-0.7) Basophils # (Auto) 0.0 x10^3/uL (0.0-0.2) Heparin Anti-Xa Act, Unfractionated 0.36 IU/mL (0.30-0.70) Sodium Level 140 mmol/L (136-145) Potassium Level 4.3 mmol/L (3.5-5.1) Chloride Level 98 mmol/L (98-107) Carbon Dioxide Level 29 mmol/L (21-32) Anion Gap 13 (6-14) Blood Urea Nitrogen 75 mg/dL (8-26) Creatinine 9.9 mg/dL (0.7-1.3) Estimated GFR (Cockcroft-Gault) 5.2 Glucose Level 204 mg/dL (70-99) Calcium Level 8.5 mg/dL (8.5-10.1) Phosphorus Level 7.1 mg/dL (2.6-4.7) Albumin 2.6 g/dL (3.4-5.0) Test 04/12/19 16:28 04/12/19 21:02 04/13/19 04:45 04/13/19 08:06 Glucose (Fingerstick) 140 mg/dL (70-99) 131 mg/dL (70-99) 120 mg/dL (70-99) Heparin Anti-Xa Act, Unfractionated 0.62 IU/mL (0.30-0.70) Laboratory Tests Test 04/12/19 13:46 04/12/19 16:28 04/12/19 21:02 04/13/19 04:45 Glucose (Fingerstick) 126 mg/dL (70-99) 140 mg/dL (70-99) 131 mg/dL (70-99) Heparin Anti-Xa Act, Unfractionated 0.62 IU/mL (0.30-0.70) Test 04/13/19 08:06 Glucose (Fingerstick) 120 mg/dL (70-99) Medications Active Scripts Medications Dose Route/Sig Max Daily Dose Days Date Category Aspirin 81 Mg Tab.chew 81 Mg PO DAILY 04/10/19 Reported Atorvastatin Calcium 40 Mg Tablet 40 Mg PO HS 04/10/19 Reported Plavix (Clopidogrel Bisulfate) 75 Mg Tablet 75 Mg PO DAILY 04/10/19 Reported Melatonin 3 Mg Tablet 3 Mg PO HS 04/10/19 Reported Nephplex Rx Tablet (Vit B Cmplx No3/Fa/C/Biot/Zinc) 1 Each Tablet 1 Tab PO DAILY 30 04/10/19 Reported Lantus Solostar (Insulin Glargine,Hum.rec.anlog) 100 Unit/1 Ml Insuln.pen 12 Unit SQ HS 04/10/19 Reported Novolog (Insulin Aspart) 100 Unit/1 Ml Vial 3 Unit SQ TIDWMEALS 04/10/19 Reported Renvela (Sevelamer Carbonate) 800 Mg Tablet 800 Mg PO TIDWMEALS 04/10/19 Reported Senna (Sennosides) 8.8 Mg/5 Ml Syrup 8.8 Mg PO DAILY PRN 04/10/19 Reported Impression . IMPRESSION: 1. Acute hypoxemic respiratory failure. 2. Acute on chronic systolic heart failure. 3. End-stage renal disease. 4. Cardiomyopathy with decreased ejection fraction. 5. Non-ST segment elevation myocardial infarction. 6. Moderate to severe coronary artery disease. 7. Hypertension. 8. End-stage renal disease, on hemodialysis. Plan . BACK TO [facility] OK BY ME NEED PT OT NEGATIVE FLUID BALANCE\ UP TO CHAIR 02 NO ANITBX NEBS PRSINCERE ROQUE MD Apr 13, 2019 11:04
[2019-04-13 15:00] VITALS: BP 95/52
[2019-04-13] MEDS: MORPHINE SULFATE 2 MG/ML VIAL. IV PRN (19:34)
[2019-04-13 20:00] VITALS: BP 122/58
[2019-04-13] MEDS: ATORVASTATIN CALCIUM 40 MG TABLET. PO SCH (22:08)
[2019-04-13 23:11] VITALS: BP 129/70
[2019-04-14 03:29] VITALS: BP 175/80
[2019-04-14 05:51] LABS: HEMATOCRIT 28.7 % (39.0-53.0); HEMOGLOBIN 9.6 g/dL (13.0-17.5); RED BLOOD COUNT 3.16 x10^6/uL (4.30-5.70); RED CELL DISTRIBUTION WIDTH 20.2 % (11.5-14.5)
[2019-04-14 07:09] VITALS: BP 170/77
[2019-04-14] MEDS: IPRATRPIUM/ALBUTEROL 0.5/2.5MG 3 ML NEBU. NEB SCH ×4 (08:08→19:59)
[2019-04-14] MEDS: ASPIRIN CHEWABLE 81 MG TABLET. PO SCH (08:40)
[2019-04-14] MEDS: METOPROLOL TART IMMED RELEASE 25 MG TABLET. PO SCH ×2 (08:40→20:55)
[2019-04-14] MEDS: CLOPIDOGREL BISULFATE 75 MG TABLET PO SCH (08:40)
[2019-04-14] MEDS: LISINOPRIL 5 MG TABLET. PO SCH (08:40)
[2019-04-14] MEDS: ISOSORBIDE MONONITRATE ER 30 MG TAB.ER.24H PO SCH (08:40)
[2019-04-14] MEDS: HEPARIN 25,000UTS/250ML PREMIX 250 ML IV PRN ×2 (08:42→21:04)
[2019-04-14] MEDS ORDERED: MAGNESIUM SULFATE 2GM 50 ML IV PRN (09:00)
[2019-04-14 11:14] VITALS: BP 132/61
--- NOTE | 2019-04-14 11:15 | PDOC ---
PROGRESS NOTES History of Present Illness History of Present Illness VTE Prophylaxis Ordered VTE Prophylaxis Devices: Yes VTE Pharmacological Prophylaxi: Yes Assessment/Plan Assessment/Plan Impression: Acute pulmonary edema CHEST PAIN, UNSTABLE Hazy bilateral airspace disease from infiltrates or edema. Chest pain ACUTE NSTEMI (non-ST elevated myocardial infarction) severe LAD disease and LCx subtotal occlusion (unsuccessful attempt for PCI). RCA was nondominant and patent. poor surgical candidate due to comorbidities ESRD (end stage renal disease) on dialysis ADMITTED [facility] BED CONSULT CARDIOLOGY CONSULT NEPHROLOGY PULM CONSULT dvt prophylaxis followup with HF clinic upon discharge. REMAINS WEAK, SLOW TO IMPROVE * 2 weeks Discharge Recommendations * [facility] Discharge Recommendation - DME * Rolling Walker needed * and ambulation safely Discharge Recommendation Comments * SNU (possibly return to [facility]) * * * CONSIDER HOSPICE CONSULT 28 min pt exam, chart review, > 50% of time spent with exam, chart review, pt care coordination Vitals Vitals Vital Signs Date Time Temp Pulse Resp B/P (MAP) Pulse Ox O2 Delivery O2 Flow Rate FiO2 04/14/19 08:40 80 04/14/19 08:10 Room Air 04/14/19 08:08 98 04/14/19 07:09 97.8 20 170/77 (108) 97.8 04/13/19 20:21 2.0 Physical Exam General: Alert, Cooperative, mild distress Heart: Regular rate Lungs: Crackles Abdomen: Normal bowel sounds Extremities: No cyanosis, No edema, Normal pulses Skin: No significant lesion Labs LABS Laboratory Tests Test 04/13/19 12:28 04/13/19 13:05 04/13/19 17:24 04/13/19 19:41 Glucose (Fingerstick) 166 mg/dL (70-99) 151 mg/dL (70-99) 176 mg/dL (70-99) Heparin Anti-Xa Act, Unfractionated > 1.10 IU/mL (0.30-0.70) Test 04/13/19 22:15 04/14/19 05:00 04/14/19 07:34 Heparin Anti-Xa Act, Unfractionated 0.21 IU/mL (0.30-0.70) 0.37 IU/mL (0.30-0.70) White Blood Count 5.0 x10^3/uL (4.0-11.0) Red Blood Count 3.16 x10^6/uL (4.30-5.70) Hemoglobin 9.6 g/dL (13.0-17.5) Hematocrit 28.7 % (39.0-53.0) Mean Corpuscular Volume 91 fL (79-100) Mean Corpuscular Hemoglobin 30 pg (25-35) Mean Corpuscular Hemoglobin Concent 33 g/dL (31-37) Red Cell Distribution Width 20.2 % (11.5-14.5) Platelet Count 98 x10^3/uL (140-400) Glucose (Fingerstick) 137 mg/dL (70-99) Assessment and Plan Assessmemt and Plan Problems Medical Problems: (1) Acute pulmonary edema Status: Acute (2) Chest pain Status: Acute (3) ESRD (end stage renal disease) on dialysis Status: Acute (4) NSTEMI (non-ST elevated myocardial infarction) Status: Acute Comment Review of Relevant I have reviewed the following items ngozi (where applicable) has been applied. Labs Laboratory Tests Test 04/12/19 13:46 04/12/19 16:28 04/12/19 21:02 04/13/19 04:45 Glucose (Fingerstick) 126 mg/dL (70-99) 140 mg/dL (70-99) 131 mg/dL (70-99) Heparin Anti-Xa Act, Unfractionated 0.62 IU/mL (0.30-0.70) Test 04/13/19 08:06 04/13/19 12:28 04/13/19 13:05 04/13/19 17:24 Glucose (Fingerstick) 120 mg/dL (70-99) 166 mg/dL (70-99) 151 mg/dL (70-99) Heparin Anti-Xa Act, Unfractionated > 1.10 IU/mL (0.30-0.70) Test 04/13/19 19:41 04/13/19 22:15 04/14/19 05:00 04/14/19 07:34 Glucose (Fingerstick) 176 mg/dL (70-99) 137 mg/dL (70-99) Heparin Anti-Xa Act, Unfractionated 0.21 IU/mL (0.30-0.70) 0.37 IU/mL (0.30-0.70) White Blood Count 5.0 x10^3/uL (4.0-11.0) Red Blood Count 3.16 x10^6/uL (4.30-5.70) Hemoglobin 9.6 g/dL (13.0-17.5) Hematocrit 28.7 % (39.0-53.0) Mean Corpuscular Volume 91 fL (79-100) Mean Corpuscular Hemoglobin 30 pg (25-35) Mean Corpuscular Hemoglobin Concent 33 g/dL (31-37) Red Cell Distribution Width 20.2 % (11.5-14.5) Platelet Count 98 x10^3/uL (140-400) Laboratory Tests Test 04/13/19 12:28 04/13/19 13:05 04/13/19 17:24 04/13/19 19:41 Glucose (Fingerstick) 166 mg/dL (70-99) 151 mg/dL (70-99) 176 mg/dL (70-99) Heparin Anti-Xa Act, Unfractionated > 1.10 IU/mL (0.30-0.70) Test 04/13/19 22:15 04/14/19 05:00 04/14/19 07:34 Heparin Anti-Xa Act, Unfractionated 0.21 IU/mL (0.30-0.70) 0.37 IU/mL (0.30-0.70) White Blood Count 5.0 x10^3/uL (4.0-11.0) Red Blood Count 3.16 x10^6/uL (4.30-5.70) Hemoglobin 9.6 g/dL (13.0-17.5) Hematocrit 28.7 % (39.0-53.0) Mean Corpuscular Volume 91 fL (79-100) Mean Corpuscular Hemoglobin 30 pg (25-35) Mean Corpuscular Hemoglobin Concent 33 g/dL (31-37) Red Cell Distribution Width 20.2 % (11.5-14.5) Platelet Count 98 x10^3/uL (140-400) Glucose (Fingerstick) 137 mg/dL (70-99) Medications Current Medications Albuterol/ Ipratropium (Duoneb) 3 ml 1X ONCE NEB Last administered on 04/09/19at 21:54; Start 04/09/19 at 22:00; Stop 04/09/19 at 22:01; Status DC Morphine Sulfate (Morphine Sulfate) 2 mg 1X ONCE IV ; Start 04/09/19 at 22:30; Stop 04/09/19 at 22:31; Status DC Heparin Sodium (Porcine) (Heparin Sodium) 3,600 unit 1X ONCE IV Last administered on 04/10/19at 00:24; Start 04/09/19 at 23:15; Stop 04/09/19 at 2 3:16; Status DC Heparin Sodium/ Dextrose 250 ml @ 0 mls/hr CONT PRN IV PER PROTOCOL Last administered on 04/14/19at 08:42; Start 04/09/19 at 23:15 Heparin Sodium (Porcine) (Heparin Sodium) 1,500 unit PRN Q6HRS PRN IV FOR UFH LEVEL LESS THAN 0.2 Last administered on 04/10/19at 23:30; Start 04/09/19 at 23:15 Ondansetron HCl (Zofran) 4 mg PRN Q8HRS PRN IV NAUSEA/VOMITING; Start 04/09/19 at 23:45; Stop 04/10/19 at 23:44; Status DC Acetaminophen (Tylenol) 650 mg PRN Q4HRS PRN PO FEVER; Start 04/09/19 at 23:45; Stop 04/10/19 at 23:44; Status DC Nitroglycerin (Nitrostat) 0.4 mg PRN Q5MIN PRN SL CHEST PAIN; Start 04/09/19 at 23:45; Stop 04/10/19 at 23:44; Status DC Albuterol/ Ipratropium (Duoneb) 3 ml RTQID NEB Last administered on 04/10/19at 19:36; Start 04/10/19 at 08:00; Stop 04/11/19 at 07:59; Status DC Info (Anti-Coagulation Monitoring By Pharmacy) 1 each PRN DAILY PRN MC SEE CO MMENTS Last administered on 04/12/19at 08:23; Start 04/10/19 at 09:15 Aspirin (Children'S Aspirin) 81 mg DAILY PO Last administered on 04/14/19at 08:40; Start 04/10/19 at 11:00 Atorvastatin Calcium (Lipitor) 40 mg HS PO Last administered on 04/13/19at 22:08; Start 04/10/19 at 21:00 Clopidogrel Bisulfate (Plavix) 75 mg DAILY PO Last administered on 04/14/19at 08:40; Start 04/10/19 at 11:00 Isosorbide Mononitrate (Imdur) 30 mg DAILY PO Last administered on 04/14/19at 08:40; Start 04/10/19 at 11:00 Metoprolol Tartrate (Lopressor) 12.5 mg BID PO Last administered on 04/14/19at 08:40; Start 04/10/19 at 11:00 Sodium Chloride 1,000 ml @ 1,000 mls/hr Q1H PRN IV hypotension; Start 04/10/19 at 12:00; Stop 04/10/19 at 17:59; Status DC Sodium Chloride 1,000 ml @ 400 mls/hr Q2H30M PRN IV PATENCY; Start 04/10/19 at 12:00; Stop 04/10/19 at 23:59; Status DC Info (PHARMACY MONITORING -- do not chart) 1 each PRN DAILY PRN MC SEE COMMENTS; Start 04/10/19 at 15:15; Status UNV Info (PHARMACY MONITORING -- do not chart) 1 each PRN DAILY PRN MC SEE COMMENTS; Start 04/10/19 at 15:15; Status Cancel Sodium Chloride 1,000 ml @ 1,000 mls/hr Q1H PRN IV hypotension; Start 04/10/19 at 12:00; Stop 04/10/19 at 17:59; Status DC Sodium Chloride 1,000 ml @ 400 mls/hr Q2H30M PRN IV PATENCY; Start 04/10/19 at 12:00; Stop 04/10/19 at 23:59; Status DC Info (PHARMACY MONITORING -- do not chart) 1 each PRN DAILY PRN MC SEE COMMENTS; Start 04/10/19 at 16:00; Status UNV Info (PHARMACY MONITORING -- do not chart) 1 each PRN DAILY PRN MC SEE COMM ENTS; Start 04/10/19 at 16:00; Stop 04/12/19 at 08:21; Status DC Lisinopril (Prinivil) 5 mg DAILY PO Last administered on 04/14/19at 08:40; Start 04/10/19 at 17:00 Albuterol Sulfate (Ventolin Neb Soln) 2.5 mg PRN Q4HRS PRN INH SHORTNESS OF BREATH; Start 04/10/19 at 17:45 Info (CONTRAST GIVEN -- Rx MONITORING) 1 each PRN DAILY PRN MC SEE COMMENTS; Start 04/10/19 at 18:00; Stop 04/12/19 at 17:59; Status DC Morphine Sulfate (Morphine Sulfate) 2 mg PRN Q2HR PRN IV PAIN Last administered on 04/13/19at 19:34; Start 04/10/19 at 19:45 Albuterol/ Ipratropium (Duoneb) 3 ml RTQID NEB Last administered on 04/14/19at 08:08; Start 04/11/19 at 08:00 Sodium Chloride 1,000 ml @ 1,000 mls/hr Q1H PRN IV hypotension; Start 04/12/19 at 07:43; Stop 04/12/19 at 13:42; Status DC Sodium Chloride 1,000 ml @ 400 mls/hr Q2H30M PRN IV PATENCY; Start 04/12/19 at 07:43; Stop 04/12/19 at 19:42; Status DC Info (PHARMACY MONITORING -- do not chart) 1 each PRN DAILY PRN MC SEE COMMENTS; Start 04/12/19 at 07:45; Status UNV Info (PHARMACY MONITORING -- do not chart) 1 each PRN DAILY PRN MC SEE COMMENTS; Start 04/12/19 at 07:45 Magnesium Sulfate 50 ml @ 25 mls/hr PRN DAILY PRN IV for Mag < 1.7 on am labs; Start 04/14/19 at 09:00 Active Scripts Active Reported Aspirin 81 Mg Tab.chew 81 Mg PO DAILY Atorvastatin Calcium 40 Mg Tablet 40 Mg PO HS Plavix (Clopidogrel Bisulfate) 75 Mg Tablet 75 Mg PO DAILY Melatonin 3 Mg Tablet 3 Mg PO HS Nephplex Rx Tablet (Vit B Cmplx No3/Fa/C/Biot/Zinc) 1 Each Tablet 1 Tab PO DAILY 30 Days Lantus Solostar (Insulin Glargine,Hum.rec.anlog) 100 Unit/1 Ml Insuln.pen 12 Unit SQ HS Novolog (Insulin Aspart) 100 Unit/1 Ml Vial 3 Unit SQ TIDWMEALS Renvela (Sevelamer Carbonate) 800 Mg Tablet 800 Mg PO TIDWMEALS Senna (Sennosides) 8.8 Mg/5 Ml Syrup 8.8 Mg PO DAILY PRN Vitals/I & O Vital Sign - Last 24 Hours 04/13/19 04/13/19 04/13/19 04/13/19 15:00 16:23 19:33 19:34 Temp 96.7 96.7 Pulse 80 Resp 20 18 B/P (MAP) 95/52 (66) Pulse Ox 99 95 97 98 O2 Delivery Room Air Nasal Cannula Room Air Nasal Cannula O2 Flow Rate 2.0 2.0 04/13/19 04/13/19 04/13/19 04/13/19 20:00 20:10 20:21 22:08 Temp 98.4 98.4 Pulse 81 81 Resp 18 16 B/P (MAP) 122/58 (79) 122/58 Pulse Ox 97 O2 Delivery Room Air Room Air Room Air O2 Flow Rate 2.0 04/13/19 04/14/19 04/14/19 04/14/19 23:11 03:29 07:09 08:08 Temp 97.7 98.2 97.8 97.7 98.2 97.8 Pulse 81 82 88 Resp 16 16 20 B/P (MAP) 129/70 (89) 175/80 (111) 170/77 (108) Pulse Ox 92 99 99 98 O2 Delivery Room Air Room Air Room Air Room Air 04/14/19 04/14/19 04/14/19 04/14/19 08:10 08:40 08:40 08:40 Pulse 80 80 80 O2 Delivery Room Air Intake and Output0 04/13/19 04/13/19 04/14/19 15:00 23:00 07:00 Intake Total 255 ml 160 ml Output Total 0 ml 0 ml Balance 255 ml 160 ml 0 ml Nutrition Consultation Dietary Evaluation: Recommendations by RD: Dietary education by RD, Increase Calorie Intake, PPN/TPN Comments: REC dysphagia II/renal/ADA diet w/thin liquids REC Glucerna (chocolate or vanilla) w/lunch and dinner REC Dany (orange) w/lunch and dinner - wound healing REV MVI - wound healing Expected Outcomes/Goals: PO intake to meet >75% est needs Interpretation of weight loss: >10% in 6 months Malnutrition Findings: Body Fat Depletion (Non Severe: Mod to Severe Weight Status: Appropriate SLAVA SETHI MD Apr 14, 2019 11:15
--- NOTE | 2019-04-14 11:40 | PDOC ---
PULMONARY PROGRESS NOTES Subjective NO RESP COMPLAINTS MISSED 2 DAYS OF HD DID NOT FEEL WELL Vitals Vital Signs Date Time Temp Pulse Resp B/P (MAP) Pulse Ox O2 Delivery O2 Flow Rate FiO2 04/14/19 11:14 98.2 85 18 132/61 (84) 97 Room Air 98.2 04/13/19 20:21 2.0 ROS: No Nausea, No Chest Pain, No Abdominal Pain, No Increase Cough General: Alert Lungs: Crackles Cardiovascular: S1 Abdomen: Soft, Non-tender Neuro Exam: Alert Extremities: No Edema Skin: Warm Labs Laboratory Tests Test 04/12/19 13:46 04/12/19 16:28 04/12/19 21:02 04/13/19 04:45 Glucose (Fingerstick) 126 mg/dL (70-99) 140 mg/dL (70-99) 131 mg/dL (70-99) Heparin Anti-Xa Act, Unfractionated 0.62 IU/mL (0.30-0.70) Test 04/13/19 08:06 04/13/19 12:28 04/13/19 13:05 04/13/19 17:24 Glucose (Fingerstick) 120 mg/dL (70-99) 166 mg/dL (70-99) 151 mg/dL (70-99) Heparin Anti-Xa Act, Unfractionated > 1.10 IU/mL (0.30-0.70) Test 04/13/19 19:41 04/13/19 22:15 04/14/19 05:00 04/14/19 07:34 Glucose (Fingerstick) 176 mg/dL (70-99) 137 mg/dL (70-99) Heparin Anti-Xa Act, Unfractionated 0.21 IU/mL (0.30-0.70) 0.37 IU/mL (0.30-0.70) White Blood Count 5.0 x10^3/uL (4.0-11.0) Red Blood Count 3.16 x10^6/uL (4.30-5.70) Hemoglobin 9.6 g/dL (13.0-17.5) Hematocrit 28.7 % (39.0-53.0) Mean Corpuscular Volume 91 fL (79-100) Mean Corpuscular Hemoglobin 30 pg (25-35) Mean Corpuscular Hemoglobin Concent 33 g/dL (31-37) Red Cell Distribution Width 20.2 % (11.5-14.5) Platelet Count 98 x10^3/uL (140-400) Laboratory Tests Test 04/13/19 12:28 04/13/19 13:05 04/13/19 17:24 04/13/19 19:41 Glucose (Fingerstick) 166 mg/dL (70-99) 151 mg/dL (70-99) 176 mg/dL (70-99) Heparin Anti-Xa Act, Unfractionated > 1.10 IU/mL (0.30-0.70) Test 04/13/19 22:15 04/14/19 05:00 04/14/19 07:34 Heparin Anti-Xa Act, Unfractionated 0.21 IU/mL (0.30-0.70) 0.37 IU/mL (0.30-0.70) White Blood Count 5.0 x10^3/uL (4.0-11.0) Red Blood Count 3.16 x10^6/uL (4.30-5.70) Hemoglobin 9.6 g/dL (13.0-17.5) Hematocrit 28.7 % (39.0-53.0) Mean Corpuscular Volume 91 fL (79-100) Mean Corpuscular Hemoglobin 30 pg (25-35) Mean Corpuscular Hemoglobin Concent 33 g/dL (31-37) Red Cell Distribution Width 20.2 % (11.5-14.5) Platelet Count 98 x10^3/uL (140-400) Glucose (Fingerstick) 137 mg/dL (70-99) Medications Active Scripts Medications Dose Route/Sig Max Daily Dose Days Date Category Aspirin 81 Mg Tab.chew 81 Mg PO DAILY 04/10/19 Reported Atorvastatin Calcium 40 Mg Tablet 40 Mg PO HS 04/10/19 Reported Plavix (Clopidogrel Bisulfate) 75 Mg Tablet 75 Mg PO DAILY 04/10/19 Reported Melatonin 3 Mg Tablet 3 Mg PO HS 04/10/19 Reported Nephplex Rx Tablet (Vit B Cmplx No3/Fa/C/Biot/Zinc) 1 Each Tablet 1 Tab PO DAILY 30 04/10/19 Reported Lantus Solostar (Insulin Glargine,Hum.rec.anlog) 100 Unit/1 Ml Insuln.pen 12 Unit SQ HS 04/10/19 Reported Novolog (Insulin Aspart) 100 Unit/1 Ml Vial 3 Unit SQ TIDWMEALS 04/10/19 Reported Renvela (Sevelamer Carbonate) 800 Mg Tablet 800 Mg PO TIDWMEALS 04/10/19 Reported Senna (Sennosides) 8.8 Mg/5 Ml Syrup 8.8 Mg PO DAILY PRN 04/10/19 Reported Impression . IMPRESSION: 1. Acute hypoxemic respiratory failure. 2. Acute on chronic systolic heart failure. 3. End-stage renal disease. 4. Cardiomyopathy with decreased ejection fraction. 5. Non-ST segment elevation myocardial infarction. 6. Moderate to severe coronary artery disease. 7. Hypertension. 8. End-stage renal disease, on hemodialysis. Plan . WILL D/W TEAM ON BEST OPTION FOR PT NEED PT OT NEGATIVE FLUID BALANCE\ UP TO CHAIR 02 NO ANITBX NEBSINCERE MERCADO MD Apr 14, 2019 11:40
[2019-04-14 15:00] VITALS: BP 129/60
[2019-04-14 19:00] VITALS: BP 138/61
[2019-04-14] MEDS: ATORVASTATIN CALCIUM 40 MG TABLET. PO SCH (20:53)
[2019-04-14 23:00] VITALS: BP 139/67
[2019-04-15 03:00] VITALS: BP 178/72
[2019-04-15] MEDS: HEPARIN for IV BOLUS 10,000 UNIT/10 ML VIAL. IV PRN (04:58)
[2019-04-15 05:25] LABS: ALBUMIN 2.7 g/dL (3.4-5.0); CALCIUM 9.2 mg/dL (8.5-10.1); CREATININE 9.1 mg/dL (0.7-1.3); GFR 5.7; PHOSPHORUS 7.3 mg/dL (2.6-4.7); POTASSIUM 4.5 mmol/L (3.5-5.1)
[2019-04-15 07:00] VITALS: BP 135/61
[2019-04-15] MEDS: IPRATRPIUM/ALBUTEROL 0.5/2.5MG 3 ML NEBU. NEB SCH ×4 (07:55→20:18)
[2019-04-15] MEDS ORDERED: IV NORMAL SALINE 1000ML BAG 1,000 ML IV PRN ×2 (08:17)
[2019-04-15] MEDS ORDERED: DIALYSIS PATIENT. MC PRN ×2 (08:30)
--- NOTE | 2019-04-15 10:23 | PDOC ---
PROGRESS NOTES History of Present Illness History of Present Illness VTE Prophylaxis Ordered VTE Prophylaxis Devices: Yes VTE Pharmacological Prophylaxi: Yes Assessment/Plan Assessment/Plan Impression: Acute pulmonary edema CHEST PAIN, UNSTABLE Hazy bilateral airspace disease from infiltrates or edema. Chest pain ACUTE NSTEMI (non-ST elevated myocardial infarction) severe LAD disease and LCx subtotal occlusion (unsuccessful attempt for PCI). RCA was nondominant and patent. poor surgical candidate due to comorbidities ESRD (end stage renal disease) on dialysis ADMITTED [facility] BED CONSULT CARDIOLOGY CONSULT NEPHROLOGY PULM CONSULT dvt prophylaxis followup with HF clinic upon discharge. REMAINS WEAK, SLOW TO IMPROVE * 2 weeks Discharge Recommendations * [facility] Discharge Recommendation - DME * Rolling Walker needed * and ambulation safely Discharge Recommendation Comments * SNU (possIBLE IGNITE ) * * * CONSIDER HOSPICE CONSULT 29 min pt exam, chart review, > 50% of time spent with exam, chart review, pt care coordination Vitals Vitals Vital Signs Date Time Temp Pulse Resp B/P (MAP) Pulse Ox O2 Delivery O2 Flow Rate FiO2 04/15/19 07:56 Room Air 04/15/19 07:00 98.2 73 20 135/61 (85) 100 98.2 04/14/19 20:00 2.0 Physical Exam General: Alert, Oriented X3, Cooperative, No acute distress, mild distress Heart: Regular rate Lungs: Clear, Crackles Abdomen: Normal bowel sounds Extremities: No cyanosis, No edema, Normal pulses Skin: No significant lesion Labs LABS Laboratory Tests Test 04/14/19 11:55 04/14/19 12:01 04/14/19 16:49 04/14/19 18:35 Heparin Anti-Xa Act, Unfractionated 0.76 IU/mL (0.30-0.70) 0.63 IU/mL (0.30-0.70) Glucose (Fingerstick) 180 mg/dL (70-99) 162 mg/dL (70-99) Test 04/14/19 19:28 04/15/19 03:00 04/15/19 07:51 Glucose (Fingerstick) 126 mg/dL (70-99) 129 mg/dL (70-99) Hemoglobin 8.8 g/dL (13.0-17.5) Heparin Anti-Xa Act, Unfractionated 0.19 IU/mL (0.30-0.70) Sodium Level 143 mmol/L (136-145) Potassium Level 4.5 mmol/L (3.5-5.1) Chloride Level 103 mmol/L (98-107) Carbon Dioxide Level 27 mmol/L (21-32) Anion Gap 13 (6-14) Blood Urea Nitrogen 71 mg/dL (8-26) Creatinine 9.1 mg/dL (0.7-1.3) Estimated GFR (Cockcroft-Gault) 5.7 Glucose Level 147 mg/dL (70-99) Calcium Level 9.2 mg/dL (8.5-10.1) Phosphorus Level 7.3 mg/dL (2.6-4.7) Magnesium Level 2.4 mg/dL (1.8-2.4) Albumin 2.7 g/dL (3.4-5.0) Assessment and Plan Assessmemt and Plan Problems Medical Problems: (1) Acute pulmonary edema Status: Acute (2) Chest pain Status: Acute (3) ESRD (end stage renal disease) on dialysis Status: Acute (4) NSTEMI (non-ST elevated myocardial infarction) Status: Acute Comment Review of Relevant I have reviewed the following items ngozi (where applicable) has been applied. Labs Laboratory Tests Test 04/13/19 12:28 04/13/19 13:05 04/13/19 17:24 04/13/19 19:41 Glucose (Fingerstick) 166 mg/dL (70-99) 151 mg/dL (70-99) 176 mg/dL (70-99) Heparin Anti-Xa Act, Unfractionated > 1.10 IU/mL (0.30-0.70) Test 04/13/19 22:15 04/14/19 05:00 04/14/19 07:34 04/14/19 11:55 Heparin Anti-Xa Act, Unfractionated 0.21 IU/mL (0.30-0.70) 0.37 IU/mL (0.30-0.70) 0.76 IU/mL (0.30-0.70) White Blood Count 5.0 x10^3/uL (4.0-11.0) Red Blood Count 3.16 x10^6/uL (4.30-5.70) Hemoglobin 9.6 g/dL (13.0-17.5) Hematocrit 28.7 % (39.0-53.0) Mean Corpuscular Volume 91 fL (79-100) Mean Corpuscular Hemoglobin 30 pg (25-35) Mean Corpuscular Hemoglobin Concent 33 g/dL (31-37) Red Cell Distribution Width 20.2 % (11.5-14.5) Platelet Count 98 x10^3/uL (140-400) Glucose (Fingerstick) 137 mg/dL (70-99) Test 04/14/19 12:01 04/14/19 16:49 04/14/19 18:35 04/14/19 19:28 Glucose (Fingerstick) 180 mg/dL (70-99) 162 mg/dL (70-99) 126 mg/dL (70-99) Heparin Anti-Xa Act, Unfractionated 0.63 IU/mL (0.30-0.70) Test 04/15/19 03:00 04/15/19 07:51 Hemoglobin 8.8 g/dL (13.0-17.5) Heparin Anti-Xa Act, Unfractionated 0.19 IU/mL (0.30-0.70) Sodium Level 143 mmol/L (136-145) Potassium Level 4.5 mmol/L (3.5-5.1) Chloride Level 103 mmol/L (98-107) Carbon Dioxide Level 27 mmol/L (21-32) Anion Gap 13 (6-14) Blood Urea Nitrogen 71 mg/dL (8-26) Creatinine 9.1 mg/dL (0.7-1.3) Estimated GFR (Cockcroft-Gault) 5.7 Glucose Level 147 mg/dL (70-99) Calcium Level 9.2 mg/dL (8.5-10.1) Phosphorus Level 7.3 mg/dL (2.6-4.7) Magnesium Level 2.4 mg/dL (1.8-2.4) Albumin 2.7 g/dL (3.4-5.0) Glucose (Fingerstick) 129 mg/dL (70-99) Laboratory Tests Test 04/14/19 11:55 04/14/19 12:01 04/14/19 16:49 04/14/19 18:35 Heparin Anti-Xa Act, Unfractionated 0.76 IU/mL (0.30-0.70) 0.63 IU/mL (0.30-0.70) Glucose (Fingerstick) 180 mg/dL (70-99) 162 mg/dL (70-99) Test 04/14/19 19:28 04/15/19 03:00 04/15/19 07:51 Glucose (Fingerstick) 126 mg/dL (70-99) 129 mg/dL (70-99) Hemoglobin 8.8 g/dL (13.0-17.5) Heparin Anti-Xa Act, Unfractionated 0.19 IU/mL (0.30-0.70) Sodium Level 143 mmol/L (136-145) Potassium Level 4.5 mmol/L (3.5-5.1) Chloride Level 103 mmol/L (98-107) Carbon Dioxide Level 27 mmol/L (21-32) Anion Gap 13 (6-14) Blood Urea Nitrogen 71 mg/dL (8-26) Creatinine 9.1 mg/dL (0.7-1.3) Estimated GFR (Cockcroft-Gault) 5.7 Glucose Level 147 mg/dL (70-99) Calcium Level 9.2 mg/dL (8.5-10.1) Phosphorus Level 7.3 mg/dL (2.6-4.7) Magnesium Level 2.4 mg/dL (1.8-2.4) Albumin 2.7 g/dL (3.4-5.0) Medications Current Medications Albuterol/ Ipratropium (Duoneb) 3 ml 1X ONCE NEB Last administered on 04/09/19at 21:54; Start 04/09/19 at 22:00; Stop 04/09/19 at 22:01; Status DC Morphine Sulfate (Morphine Sulfate) 2 mg 1X ONCE IV ; Start 04/09/19 at 22:30; Stop 04/09/19 at 22:31; Status DC Heparin Sodium (Porcine) (Heparin Sodium) 3,600 unit 1X ONCE IV Last administered on 04/10/19at 00:24; Start 04/09/19 at 23:15; Stop 04/09/19 at 23:16; Status DC Heparin Sodium/ Dextrose 250 ml @ 0 mls/hr CONT PRN IV PER PROTOCOL Last administered on 04/14/19at 21:04; Start 04/09/19 at 23:15 Heparin Sodium (Porcine) (Heparin Sodium) 1,500 unit PRN Q6HRS PRN IV FOR UFH LEVEL LESS THAN 0.2 Last administered on 04/15/19at 04:58; Start 04/09/19 at 23:15 Ondansetron HCl (Zofran) 4 mg PRN Q8HRS PRN IV NAUSEA/VOMITING; Start 04/09/19 at 23:45; Stop 04/10/19 at 23:44; Status DC Acetaminophen (Tylenol) 650 mg PRN Q4HRS PRN PO FEVER; Start 04/09/19 at 23:45; Stop 04/10/19 at 23:44; Status DC Nitroglycerin (Nitrostat) 0.4 mg PRN Q5MIN PRN SL CHEST PAIN; Start 04/09/19 at 23:45; Stop 04/10/19 at 23:44; Status DC Albuterol/ Ipratropium (Duoneb) 3 ml RTQID NEB Last administered on 04/10/19at 19:36; Start 04/10/19 at 08:00; Stop 04/11/19 at 07:59; Status DC Info (Anti-Coagulation Monitoring By Pharmacy) 1 each PRN DAILY PRN MC SEE CO MMENTS Last administered on 04/12/19at 08:23; Start 04/10/19 at 09:15 Aspirin (Children'S Aspirin) 81 mg DAILY PO Last administered on 04/14/19at 08:40; Start 04/10/19 at 11:00 Atorvastatin Calcium (Lipitor) 40 mg HS PO Last administered on 04/14/19at 20:53; Start 04/10/19 at 21:00 Clopidogrel Bisulfate (Plavix) 75 mg DAILY PO Last administered on 04/14/19at 08:40; Start 04/10/19 at 11:00 Isosorbide Mononitrate (Imdur) 30 mg DAILY PO Last administered on 04/14/19at 08:40; Start 04/10/19 at 11:00 Metoprolol Tartrate (Lopressor) 12.5 mg BID PO Last administered on 04/14/19at 20:55; Start 04/10/19 at 11:00 Sodium Chloride 1,000 ml @ 1,000 mls/hr Q1H PRN IV hypotension; Start 04/10/19 at 12:00; Stop 04/10/19 at 17:59; Status DC Sodium Chloride 1,000 ml @ 400 mls/hr Q2H30M PRN IV PATENCY; Start 04/10/19 at 12:00; Stop 04/10/19 at 23:59; Status DC Info (PHARMACY MONITORING -- do not chart) 1 each PRN DAILY PRN MC SEE COMMENTS; Start 04/10/19 at 15:15; Status UNV Info (PHARMACY MONITORING -- do not chart) 1 each PRN DAILY PRN MC SEE COMMENTS; Start 04/10/19 at 15:15; Status Cancel Sodium Chloride 1,000 ml @ 1,000 mls/hr Q1H PRN IV hypotension; Start 04/10/19 at 12:00; Stop 04/10/19 at 17:59; Status DC Sodium Chloride 1,000 ml @ 400 mls/hr Q2H30M PRN IV PATENCY; Start 04/10/19 at 12:00; Stop 04/10/19 at 23:59; Status DC Info (PHARMACY MONITORING -- do not chart) 1 each PRN DAILY PRN MC SEE COMMENTS; Start 04/10/19 at 16:00; Status UNV Info (PHARMACY MONITORING -- do not chart) 1 each PRN DAILY PRN MC SEE COMME NTS; Start 04/10/19 at 16:00; Stop 04/12/19 at 08:21; Status DC Lisinopril (Prinivil) 5 mg DAILY PO Last administered on 04/14/19at 08:40; Start 04/10/19 at 17:00 Albuterol Sulfate (Ventolin Neb Soln) 2.5 mg PRN Q4HRS PRN INH SHORTNESS OF BREATH; Start 04/10/19 at 17:45 Info (CONTRAST GIVEN -- Rx MONITORING) 1 each PRN DAILY PRN MC SEE COMMENTS; Start 04/10/19 at 18:00; Stop 04/12/19 at 17:59; Status DC Morphine Sulfate (Morphine Sulfate) 2 mg PRN Q2HR PRN IV PAIN Last administered on 04/13/19at 19:34; Start 04/10/19 at 19:45 Albuterol/ Ipratropium (Duoneb) 3 ml RTQID NEB Last administered on 04/15/19at 07:55; Start 04/11/19 at 08:00 Sodium Chloride 1,000 ml @ 1,000 mls/hr Q1H PRN IV hypotension; Start 04/12/19 at 07:43; Stop 04/12/19 at 13:42; Status DC Sodium Chloride 1,000 ml @ 400 mls/hr Q2H30M PRN IV PATENCY; Start 04/12/19 at 07:43; Stop 04/12/19 at 19:42; Status DC Info (PHARMACY MONITORING -- do not chart) 1 each PRN DAILY PRN MC SEE COMMENTS; Start 04/12/19 at 07:45; Status UNV Info (PHARMACY MONITORING -- do not chart) 1 each PRN DAILY PRN MC SEE COMMENTS; Start 04/12/19 at 07:45; Stop 04/15/19 at 08:42; Status DC Magnesium Sulfate 50 ml @ 25 mls/hr PRN DAILY PRN IV for Mag < 1.7 on am labs; Start 04/14/19 at 09:00 Sodium Chloride 1,000 ml @ 1,000 mls/hr Q1H PRN IV hypotension; Start 04/15/19 at 08:17; Stop 04/15/19 at 14:16 Sodium Chloride 1,000 ml @ 400 mls/hr Q2H30M PRN IV PATENCY; Start 04/15/19 at 08:17; Stop 04/15/19 at 20:16 Info (PHARMACY MONITORING -- do not chart) 1 each PRN DAILY PRN MC SEE COMMENTS; Start 04/15/19 at 08:30; Status UNV Info (PHARMACY MONITORING -- do not chart) 1 each PRN DAILY PRN MC SEE C OMMENTS; Start 04/15/19 at 08:30 Active Scripts Active Reported Aspirin 81 Mg Tab.chew 81 Mg PO DAILY Atorvastatin Calcium 40 Mg Tablet 40 Mg PO HS Plavix (Clopidogrel Bisulfate) 75 Mg Tablet 75 Mg PO DAILY Melatonin 3 Mg Tablet 3 Mg PO HS Nephplex Rx Tablet (Vit B Cmplx No3/Fa/C/Biot/Zinc) 1 Each Tablet 1 Tab PO DAILY 30 Days Lantus Solostar (Insulin Glargine,Hum.rec.anlog) 100 Unit/1 Ml Insuln.pen 12 Unit SQ HS Novolog (Insulin Aspart) 100 Unit/1 Ml Vial 3 Unit SQ TIDWMEALS Renvela (Sevelamer Carbonate) 800 Mg Tablet 800 Mg PO TIDWMEALS Senna (Sennosides) 8.8 Mg/5 Ml Syrup 8.8 Mg PO DAILY PRN Vitals/I & O Vital Sign - Last 24 Hours 04/14/19 04/14/19 04/14/19 04/14/19 11:14 12:19 15:00 15:57 Temp 98.2 96.8 98.2 96.8 Pulse 85 73 Resp 18 18 B/P (MAP) 132/61 (84) 129/60 (83) Pulse Ox 97 98 96 97 O2 Delivery Room Air Room Air Room Air Room Air 04/14/19 04/14/19 04/14/19 04/14/19 19:00 20:00 20:00 20:55 Temp 97.9 97.9 Pulse 76 76 Resp 24 B/P (MAP) 138/61 (86) 138/61 Pulse Ox 100 95 O2 Delivery Room Air Room Air Room Air O2 Flow Rate 2.0 04/14/19 04/15/19 04/15/19 04/15/19 23:00 03:00 07:00 07:56 Temp 98.8 98.3 98.2 98.8 98.3 98.2 Pulse 83 81 73 Resp 20 20 20 B/P (MAP) 139/67 (91) 178/72 (107) 135/61 (85) Pulse Ox 96 96 100 O2 Delivery Room Air Room Air Room Air Room Air Intake and Output 04/14/19 04/14/19 04/15/19 15:00 23:00 07:00 Intake Total 200 ml 25 ml Output Total 0 ml 0 ml Balance 200 ml 25 ml 0 ml Nutrition Consultation Dietary Evaluation: Recommendations by RD: Dietary education by RD, Increase Calorie Intake, PPN/TPN Comments: REC dysphagia II/renal/ADA diet w/thin liquids REC Glucerna (chocolate or vanilla) w/lunch and dinner REC Dany (orange) w/lunch and dinner - wound healing REV MVI - wound healing Expected Outcomes/Goals: PO intake to meet >75% est needs Interpretation of weight loss: >10% in 6 months Malnutrition Findings: Body Fat Depletion (Non Severe: Mod to Severe Weight Status: Appropriate SLAVA SETHI MD Apr 15, 2019 10:23
--- NOTE | 2019-04-15 10:35 | PDOC ---
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 OBJECTIVE Vital Signs Vital Signs Date Time Temp Pulse Resp B/P (MAP) Pulse Ox O2 Delivery O2 Flow Rate FiO2 04/15/19 07:56 Room Air 04/15/19 07:00 98.2 73 20 135/61 (85) 100 98.2 04/14/19 20:00 2.0 I & 0 Intake and Output 04/15/19 07:00 Intake Total 225 ml Output Total 0 ml Balance 225 ml Intake Oral 225 ml Output Urine Total 0 ml # Bowel Movements 1 PHYSICAL EXAM Physical Exam General: NAD HEENT: OM moist Lungs: CTA , Non labored Heart: Regular rate Abdomen: Normal bowel sounds, Soft, No tenderness Extremities: No edema Skin: No rash DIAGNOSIS/ASSESSMENT Assessment & Plan ESRD- On HD MWF at , has been on for 2-3 years Seen on HD , tolerating well, continue as ordered, Dionte Fitzpatrick Acute on chronic systolic CHF secondary to missed HD; Echo showed LVEF 20-25%. previously 50% per echo 11/2018. CAD; severe CAD. Cath 12/01 . Moderate to severe LAD disease and LCx subtotal occlusion (unsuccessful attempt for PCI). Deemed poor surgical candidate due to comorbidities. Anemia- Per primary ANETA per protocol Acute pulmonary edema- stable Hazy bilateral airspace disease from infiltrates or edema. COMMENT/RELEVANT DATA Meds Current Medications Medications (Trade) Dose Ordered Sig/Magno Start Time Stop Time Status Last Admin Dose Admin Acetaminophen (Tylenol) 650 mg PRN Q4HRS PRN 04/09/19 23:45 04/10/19 23:44 DC Albuterol Sulfate (Ventolin Neb Soln) 2.5 mg PRN Q4HRS PRN 04/10/19 17:45 Albuterol/ Ipratropium (Duoneb) 3 ml RTQID 04/11/19 08:00 04/15/19 07:55 3 ML Aspirin (Children'S Aspirin) 81 mg DAILY 04/10/19 11:00 04/14/19 08:40 81 MG Atorvastatin Calcium (Lipitor) 40 mg HS 04/10/19 21:00 04/14/19 20:53 40 MG Clopidogrel Bisulfate (Plavix) 75 mg DAILY 04/10/19 11:00 04/14/19 08:40 75 MG Heparin Sodium (Porcine) (Heparin Sodium) 1,500 unit PRN Q6HRS PRN 04/09/19 23:15 04/15/19 04:58 1,500 UNIT Heparin Sodium/ Dextrose 250 ml @ 0 mls/hr CONT PRN 04/09/19 23:15 04/14/19 21:04 7.8 MLS/HR Info (Anti-Coagulation Monitoring By Pharmacy) 1 each PRN DAILY PRN 04/10/19 09:15 04/12/19 08:23 1 EACH Info (CONTRAST GIVEN -- Rx MONITORING) 1 each PRN DAILY PRN 04/10/19 18:00 04/12/19 17:59 DC Info (PHARMACY MONITORING -- do not chart) 1 each PRN DAILY PRN 04/15/19 08:30 Isosorbide Mononitrate (Imdur) 30 mg DAILY 04/10/19 11:00 04/14/19 08:40 30 MG Lisinopril (Prinivil) 5 mg DAILY 04/10/19 17:00 04/14/19 08:40 5 MG Magnesium Sulfate 50 ml @ 25 mls/hr PRN DAILY PRN 04/14/19 09:00 Metoprolol Tartrate (Lopressor) 12.5 mg BID 04/10/19 11:00 04/14/19 20:55 12.5 MG Morphine Sulfate (Morphine Sulfate) 2 mg PRN Q2HR PRN 04/10/19 19:45 04/13/19 19:34 2 MG Nitroglycerin (Nitrostat) 0.4 mg PRN Q5MIN PRN 04/09/19 23:45 04/10/19 23:44 DC Ondansetron HCl (Zofran) 4 mg PRN Q8HRS PRN 04/09/19 23:45 04/10/19 23:44 DC Sodium Chloride 1,000 ml @ 400 mls/hr Q2H30M PRN 04/15/19 08:17 04/15/19 20:16 Lab Laboratory Tests Test 04/14/19 11:55 04/14/19 12:01 04/14/19 16:49 04/14/19 18:35 Heparin Anti-Xa Act, Unfractionated 0.76 IU/mL (0.30-0.70) 0.63 IU/mL (0.30-0.70) Glucose (Fingerstick) 180 mg/dL (70-99) 162 mg/dL (70-99) Test 04/14/19 19:28 04/15/19 03:00 04/15/19 07:51 Glucose (Fingerstick) 126 mg/dL (70-99) 129 mg/dL (70-99) Hemoglobin 8.8 g/dL (13.0-17.5) Heparin Anti-Xa Act, Unfractionated 0.19 IU/mL (0.30-0.70) Sodium Level 143 mmol/L (136-145) Potassium Level 4.5 mmol/L (3.5-5.1) Chloride Level 103 mmol/L (98-107) Carbon Dioxide Level 27 mmol/L (21-32) Anion Gap 13 (6-14) Blood Urea Nitrogen 71 mg/dL (8-26) Creatinine 9.1 mg/dL (0.7-1.3) Estimated GFR (Cockcroft-Gault) 5.7 Glucose Level 147 mg/dL (70-99) Calcium Level 9.2 mg/dL (8.5-10.1) Phosphorus Level 7.3 mg/dL (2.6-4.7) Magnesium Level 2.4 mg/dL (1.8-2.4) Albumin 2.7 g/dL (3.4-5.0) Results All relevant outside records, renal labs, imaging studies, telemetry/EKG's were reviewed. SEAN ITLLMAN MD Apr 15, 2019 10:35
--- NOTE | 2019-04-15 10:43 | NUR ---
SS following up with discharge planning. Pt's niece contacted SS this morning to discuss discharge planning. Pt's niece notified that [facility] has declined to accept pt back. SS discussed LTC placement and hospice. Pt's niece did not agree to hospice at this time and reported that pt needed to go to facility. SS discussed options. Pt's niece requested referrals be phoned and faxed to [facility], ; fax [phone], and [facility] in [facility], ; fax [phone]. Pt's niece understandable that insurance may decline to pay for half-way unit but requested that pt be screened for half-way unit. Pt's niece reported that if insurance declines she will make private pay arrangements for LTC placement and was understanding of the expense. life care planner, Daisy Gaffney, to phone and fax referrals and SS will continue to follow along with naval surface fire support planner. Pt's RN notified.
--- NOTE | 2019-04-15 13:34 | PDOC ---
CARLINE GARCIA HOMEMAKER COMPANION 04/15/19 1334: CARDIO Progress Notes Date and Time Date of Service 04/15/19 Time of Evaluation 1320 Subjective Subjective: No Chest Pain, No shortness of breath, No Palpitations Vitals Vitals Vital Signs Date Time Temp Pulse Resp B/P (MAP) Pulse Ox O2 Delivery O2 Flow Rate FiO2 04/15/19 08:00 Room Air 04/15/19 07:00 98.2 73 20 135/61 (85) 100 98.2 04/14/19 20:00 2.0 Weight Weight [ ] Input and Output Intake and Output Intake and Output 04/15/19 07:00 Intake Total 225 ml Output Total 0 ml Balance 225 ml Intake Oral 225 ml Output Urine Total 0 ml # Bowel Movements 1 Laboratory Labs Laboratory Tests Test 04/14/19 16:49 04/14/19 18:35 04/14/19 19:28 04/15/19 03:00 Glucose (Fingerstick) 162 mg/dL (70-99) 126 mg/dL (70-99) Heparin Anti-Xa Act, Unfractionated 0.63 IU/mL (0.30-0.70) 0.19 IU/mL (0.30-0.70) Hemoglobin 8.8 g/dL (13.0-17.5) Sodium Level 143 mmol/L (136-145) Potassium Level 4.5 mmol/L (3.5-5.1) Chloride Level 103 mmol/L (98-107) Carbon Dioxide Level 27 mmol/L (21-32) Anion Gap 13 (6-14) Blood Urea Nitrogen 71 mg/dL (8-26) Creatinine 9.1 mg/dL (0.7-1.3) Estimated GFR (Cockcroft-Gault) 5.7 Glucose Level 147 mg/dL (70-99) Calcium Level 9.2 mg/dL (8.5-10.1) Phosphorus Level 7.3 mg/dL (2.6-4.7) Magnesium Level 2.4 mg/dL (1.8-2.4) Albumin 2.7 g/dL (3.4-5.0) Test 04/15/19 07:51 04/15/19 10:47 Glucose (Fingerstick) 129 mg/dL (70-99) Heparin Anti-Xa Act, Unfractionated 0.54 IU/mL (0.30-0.70) Review of Systems Constitutional: yes: alert, oriented Ears/Nose/Throat: Yes: no symptom reported Eyes: Yes: no symptom reported Pulmonary: Yes dyspnea Gastrointestional: Yes: no symptom reported Genitourinary: Yes: no symptom reported Musculoskeletal: Yes: no symptom reported Skin: Yes no symptom reported Psychiatric/Neurological: Yes: no symptom reported Endocrine: Yes: no symptom reported Physical Exam HEENT: Neck Supple W Full Motion Chest: Symmetric LUNGS: Other (diminished bases) Heart: S1S2, RRR, murmurs (2/6 systolic murmur ) Abdomen: Soft N/T Extremities: No Edema Neurology: alert, follow commands Assessment Assessment 1. Acute respiratory failure with a/c CHF; improved, off BiPAP 2. Acute on chronic systolic CHF secondary to missed HD; Echo showed LVEF 20- 25%. previously 50% per echo 11/2018. Better compensated following UF 3. NSTEMI; peak trop 4.0. 4. CAD; moderate to severe CAD. Cath 12/01 as noted below. Moderate to severe LAD disease and LCx subtotal occlusion (unsuccessful attempt for PCI). RCA was nondominant and patent. Deemed poor surgical candidate due to comorbidities. Treated medically 5. ESRD on HD 6. Hypertension;controlled 7. Hyperlipidemia; statin. LDL 65 8. Diabetes, II Recommendations ASA, statin, Plavix Continue imdur, lisinopril, and low-dose BB Fluid offloading via HD Follow up [facility] HF clinic upon discharge. Reinforced importance of medical compliance AIXA HOLGUIN MD 04/15/19 2497: CARDIO Progress Notes Assessment Assessment Patient seen and examined 1. Acute respiratory failure with chronic systolic heart failure. Poor LV function. Not a candidate for CABG. Previous work up at . Continuing medical treatment. 2. Acute on chronic systolic CHF. Echo showed LVEF 20-25%. previously 50% per echo 11/2018. Fluid management as per HD. 3. NSTEMI; peak trop 4.0. 4. CAD; moderate to severe CAD. Cath 12/01 as noted below. Moderate to severe LAD disease and LCx subtotal occlusion (unsuccessful attempt for PCI). RCA was nondominant and patent. Deemed poor surgical candidate due to comorbidities. Treated medically 5. ESRD on HD as per renal 6. Hypertension;controlled 7. Hyperlipidemia; statin. LDL 65 8. Diabetes, II CARLINE GARCIA APRN Apr 15, 2019 13:34 AIXA HOLGUIN MD Apr 15, 2019 17:17
[2019-04-15 13:45] VITALS: BP 118/61
[2019-04-15] MEDS: METOPROLOL TART IMMED RELEASE 25 MG TABLET. PO SCH ×2 (13:58→20:24)
[2019-04-15] MEDS: ISOSORBIDE MONONITRATE ER 30 MG TAB.ER.24H PO SCH (13:58)
[2019-04-15] MEDS: CLOPIDOGREL BISULFATE 75 MG TABLET PO SCH (13:59)
[2019-04-15] MEDS: ASPIRIN CHEWABLE 81 MG TABLET. PO SCH (13:59)
[2019-04-15] MEDS: LISINOPRIL 5 MG TABLET. PO SCH (13:59)
[2019-04-15 15:00] VITALS: BP 167/60
--- NOTE | 2019-04-15 17:04 | RAD ---
PORTABLE CHEST 1V Clinical History: Reevaluate heart failure Technique: AP view of the chest was obtained at 04/15/2019 5:00 AM. Comparison: April 09, 2019. Findings: The cardiomediastinal silhouette is normal. The pulmonary vasculature is normal. There is patchy hazy opacities in the lung bases.. Impression: Mild basal infiltrates appears significantly improved. Electronically signed by: Javier Mccormack III, MD (04/15/2019 5:01 PM) [id number]
--- NOTE | 2019-04-15 18:08 | PDOC ---
PULMONARY PROGRESS NOTES Subjective NO RESP COMPLAINTS Vitals Vital Signs Date Time Temp Pulse Resp B/P (MAP) Pulse Ox O2 Delivery O2 Flow Rate FiO2 04/15/19 16:09 97 Room Air 04/15/19 15:00 97.9 98 20 167/60 (95) 97.9 04/14/19 20:00 2.0 ROS: No Nausea, No Chest Pain, No Abdominal Pain, No Increase Cough General: Alert Lungs: Clear, Crackles Cardiovascular: S1 Abdomen: Soft, Non-tender Neuro Exam: Alert Extremities: No Edema Skin: Warm Labs Laboratory Tests Test 04/13/19 19:41 04/13/19 22:15 04/14/19 05:00 04/14/19 07:34 Glucose (Fingerstick) 176 mg/dL (70-99) 137 mg/dL (70-99) Heparin Anti-Xa Act, Unfractionated 0.21 IU/mL (0.30-0.70) 0.37 IU/mL (0.30-0.70) White Blood Count 5.0 x10^3/uL (4.0-11.0) Red Blood Count 3.16 x10^6/uL (4.30-5.70) Hemoglobin 9.6 g/dL (13.0-17.5) Hematocrit 28.7 % (39.0-53.0) Mean Corpuscular Volume 91 fL (79-100) Mean Corpuscular Hemoglobin 30 pg (25-35) Mean Corpuscular Hemoglobin Concent 33 g/dL (31-37) Red Cell Distribution Width 20.2 % (11.5-14.5) Platelet Count 98 x10^3/uL (140-400) Test 04/14/19 11:55 04/14/19 12:01 04/14/19 16:49 04/14/19 18:35 Heparin Anti-Xa Act, Unfractionated 0.76 IU/mL (0.30-0.70) 0.63 IU/mL (0.30-0.70) Glucose (Fingerstick) 180 mg/dL (70-99) 162 mg/dL (70-99) Test 04/14/19 19:28 04/15/19 03:00 04/15/19 07:51 04/15/19 10:47 Glucose (Fingerstick) 126 mg/dL (70-99) 129 mg/dL (70-99) Hemoglobin 8.8 g/dL (13.0-17.5) Heparin Anti-Xa Act, Unfractionated 0.19 IU/mL (0.30-0.70) 0.54 IU/mL (0.30-0.70) Sodium Level 143 mmol/L (136-145) Potassium Level 4.5 mmol/L (3.5-5.1) Chloride Level 103 mmol/L (98-107) Carbon Dioxide Level 27 mmol/L (21-32) Anion Gap 13 (6-14) Blood Urea Nitrogen 71 mg/dL (8-26) Creatinine 9.1 mg/dL (0.7-1.3) Estimated GFR (Cockcroft-Gault) 5.7 Glucose Level 147 mg/dL (70-99) Calcium Level 9.2 mg/dL (8.5-10.1) Phosphorus Level 7.3 mg/dL (2.6-4.7) Magnesium Level 2.4 mg/dL (1.8-2.4) Albumin 2.7 g/dL (3.4-5.0) Test 04/15/19 16:55 Glucose (Fingerstick) 205 mg/dL (70-99) Laboratory Tests Test 04/14/19 18:35 04/14/19 19:28 04/15/19 03:00 04/15/19 07:51 Heparin Anti-Xa Act, Unfractionated 0.63 IU/mL (0.30-0.70) 0.19 IU/mL (0.30-0.70) Glucose (Fingerstick) 126 mg/dL (70-99) 129 mg/dL (70-99) Hemoglobin 8.8 g/dL (13.0-17.5) Sodium Level 143 mmol/L (136-145) Potassium Level 4.5 mmol/L (3.5-5.1) Chloride Level 103 mmol/L (98-107) Carbon Dioxide Level 27 mmol/L (21-32) Anion Gap 13 (6-14) Blood Urea Nitrogen 71 mg/dL (8-26) Creatinine 9.1 mg/dL (0.7-1.3) Estimated GFR (Cockcroft-Gault) 5.7 Glucose Level 147 mg/dL (70-99) Calcium Level 9.2 mg/dL (8.5-10.1) Phosphorus Level 7.3 mg/dL (2.6-4.7) Magnesium Level 2.4 mg/dL (1.8-2.4) Albumin 2.7 g/dL (3.4-5.0) Test 04/15/19 10:47 04/15/19 16:55 Heparin Anti-Xa Act, Unfractionated 0.54 IU/mL (0.30-0.70) Glucose (Fingerstick) 205 mg/dL (70-99) Medications Active Scripts Medications Dose Route/Sig Max Daily Dose Days Date Category Aspirin 81 Mg Tab.chew 81 Mg PO DAILY 04/10/19 Reported Atorvastatin Calcium 40 Mg Tablet 40 Mg PO HS 04/10/19 Reported Plavix (Clopidogrel Bisulfate) 75 Mg Tablet 75 Mg PO DAILY 04/10/19 Reported Melatonin 3 Mg Tablet 3 Mg PO HS 04/10/19 Reported Nephplex Rx Tablet (Vit B Cmplx No3/Fa/C/Biot/Zinc) 1 Each Tablet 1 Tab PO DAILY 30 04/10/19 Reported Lantus Solostar (Insulin Glargine,Hum.rec.anlog) 100 Unit/1 Ml Insuln.pen 12 Unit SQ HS 04/10/19 Reported Novolog (Insulin Aspart) 100 Unit/1 Ml Vial 3 Unit SQ TIDWMEALS 04/10/19 Reported Renvela (Sevelamer Carbonate) 800 Mg Tablet 800 Mg PO TIDWMEALS 04/10/19 Reported Senna (Sennosides) 8.8 Mg/5 Ml Syrup 8.8 Mg PO DAILY PRN 04/10/19 Reported Impression . IMPRESSION: 1. Acute hypoxemic respiratory failure. 2. Acute on chronic systolic heart failure. 3. End-stage renal disease. 4. Cardiomyopathy with decreased ejection fraction. 5. Non-ST segment elevation myocardial infarction. 6. Moderate to severe coronary artery disease. 7. Hypertension. 8. End-stage renal disease, on hemodialysis. Plan . D/C PLANNING IN PLACE RESP STATUS COMPENSATED OFF SINCERE GARCES MD Apr 15, 2019 18:08
[2019-04-15 19:14] VITALS: BP 105/55
[2019-04-15] MEDS: ATORVASTATIN CALCIUM 40 MG TABLET. PO SCH (20:23)
[2019-04-15] MEDS ORDERED: DARBEPOETIN ALFA 60 MCG/0.3 ML DISP.SYRIN. SQ SCH (21:00)
[2019-04-15 22:54] VITALS: BP 138/62
[2019-04-16 03:59] VITALS: BP 131/63
[2019-04-16 07:00] VITALS: BP 137/63
[2019-04-16 07:45] LABS: ALBUMIN 2.7 g/dL (3.4-5.0); CREATININE 6.1 mg/dL (0.7-1.3); GFR 9.1; PHOSPHORUS 5.3 mg/dL (2.6-4.7); POTASSIUM 4.3 mmol/L (3.5-5.1)
[2019-04-16] MEDS: IPRATRPIUM/ALBUTEROL 0.5/2.5MG 3 ML NEBU. NEB SCH ×4 (08:26→19:15)
[2019-04-16] MEDS: LISINOPRIL 5 MG TABLET. PO SCH (08:47)
[2019-04-16] MEDS: CLOPIDOGREL BISULFATE 75 MG TABLET PO SCH (08:47)
[2019-04-16] MEDS: ASPIRIN CHEWABLE 81 MG TABLET. PO SCH (08:47)
[2019-04-16] MEDS: METOPROLOL TART IMMED RELEASE 25 MG TABLET. PO SCH ×2 (08:47→21:23)
[2019-04-16] MEDS: ISOSORBIDE MONONITRATE ER 30 MG TAB.ER.24H PO SCH (08:51)
[2019-04-16 11:00] VITALS: BP 124/60
--- NOTE | 2019-04-16 11:24 | PDOC ---
PROGRESS NOTES History of Present Illness History of Present Illness VTE Prophylaxis Ordered VTE Prophylaxis Devices: Yes VTE Pharmacological Prophylaxi: Yes Assessment/Plan Assessment/Plan Impression: Acute pulmonary edema CHEST PAIN, UNSTABLE Hazy bilateral airspace disease from infiltrates or edema. Chest pain ACUTE NSTEMI (non-ST elevated myocardial infarction) severe LAD disease and LCx subtotal occlusion (unsuccessful attempt for PCI). RCA was nondominant and patent. poor surgical candidate due to comorbidities ESRD (end stage renal disease) on dialysis ADMITTED [facility] BED CONSULT CARDIOLOGY CONSULT NEPHROLOGY PULM CONSULT dvt prophylaxis followup with HF clinic upon discharge. REMAINS WEAK, SLOW TO IMPROVE * 2 weeks Discharge Recommendations * [facility] Discharge Recommendation - DME * Rolling Walker needed * and ambulation safely Discharge Recommendation Comments * SNU (possIBLE IGNITE ) * * * CONSIDER HOSPICE CONSULT 26 min pt exam, chart review, > 50% of time spent with exam, chart review, pt care coordination Vitals Vitals Vital Signs Date Time Temp Pulse Resp B/P (MAP) Pulse Ox O2 Delivery O2 Flow Rate FiO2 04/16/19 08:51 80 137/63 04/16/19 08:26 96 Room Air 04/16/19 07:00 97.6 18 97.6 04/15/19 20:00 2.0 Physical Exam General: Alert, Oriented X3, Cooperative, No acute distress, mild distress Heart: Regular rate Lungs: Clear, Crackles Abdomen: Normal bowel sounds Extremities: No cyanosis, No edema, Normal pulses Skin: No significant lesion Labs LABS Laboratory Tests Test 04/15/19 16:55 04/15/19 20:42 04/16/19 06:40 04/16/19 07:35 Glucose (Fingerstick) 205 mg/dL (70-99) 206 mg/dL (70-99) 139 mg/dL (70-99) Sodium Level 142 mmol/L (136-145) Potassium Level 4.3 mmol/L (3.5-5.1) Chloride Level 100 mmol/L (98-107) Carbon Dioxide Level 33 mmol/L (21-32) Anion Gap 9 (6-14) Blood Urea Nitrogen 47 mg/dL (8-26) Creatinine 6.1 mg/dL (0.7-1.3) Estimated GFR (Cockcroft-Gault) 9.1 Glucose Level 150 mg/dL (70-99) Calcium Level 9.0 mg/dL (8.5-10.1) Phosphorus Level 5.3 mg/dL (2.6-4.7) Magnesium Level 2.1 mg/dL (1.8-2.4) Albumin 2.7 g/dL (3.4-5.0) Assessment and Plan Assessmemt and Plan Problems Medical Problems: (1) Acute pulmonary edema Status: Acute (2) Chest pain Status: Acute (3) ESRD (end stage renal disease) on dialysis Status: Acute (4) NSTEMI (non-ST elevated myocardial infarction) Status: Acute Comment Review of Relevant I have reviewed the following items ngozi (where applicable) has been applied. Labs Laboratory Tests Test 04/14/19 11:55 04/14/19 12:01 04/14/19 16:49 04/14/19 18:35 Heparin Anti-Xa Act, Unfractionated 0.76 IU/mL (0.30-0.70) 0.63 IU/mL (0.30-0.70) Glucose (Fingerstick) 180 mg/dL (70-99) 162 mg/dL (70-99) Test 04/14/19 19:28 04/15/19 03:00 04/15/19 07:51 04/15/19 10:47 Glucose (Fingerstick) 126 mg/dL (70-99) 129 mg/dL (70-99) Hemoglobin 8.8 g/dL (13.0-17.5) Heparin Anti-Xa Act, Unfractionated 0.19 IU/mL (0.30-0.70) 0.54 IU/mL (0.30-0.70) Sodium Level 143 mmol/L (136-145) Potassium Level 4.5 mmol/L (3.5-5.1) Chloride Level 103 mmol/L (98-107) Carbon Dioxide Level 27 mmol/L (21-32) Anion Gap 13 (6-14) Blood Urea Nitrogen 71 mg/dL (8-26) Creatinine 9.1 mg/dL (0.7-1.3) Estimated GFR (Cockcroft-Gault) 5.7 Glucose Level 147 mg/dL (70-99) Calcium Level 9.2 mg/dL (8.5-10.1) Phosphorus Level 7.3 mg/dL (2.6-4.7) Magnesium Level 2.4 mg/dL (1.8-2.4) Albumin 2.7 g/dL (3.4-5.0) Test 04/15/19 16:55 04/15/19 20:42 04/16/19 06:40 04/16/19 07:35 Glucose (Fingerstick) 205 mg/dL (70-99) 206 mg/dL (70-99) 139 mg/dL (70-99) Sodium Level 142 mmol/L (136-145) Potassium Level 4.3 mmol/L (3.5-5.1) Chloride Level 100 mmol/L (98-107) Carbon Dioxide Level 33 mmol/L (21-32) Anion Gap 9 (6-14) Blood Urea Nitrogen 47 mg/dL (8-26) Creatinine 6.1 mg/dL (0.7-1.3) Estimated GFR (Cockcroft-Gault) 9.1 Glucose Level 150 mg/dL (70-99) Calcium Level 9.0 mg/dL (8.5-10.1) Phosphorus Level 5.3 mg/dL (2.6-4.7) Magnesium Level 2.1 mg/dL (1.8-2.4) Albumin 2.7 g/dL (3.4-5.0) Laboratory Tests Test 04/15/19 16:55 04/15/19 20:42 04/16/19 06:40 04/16/19 07:35 Glucose (Fingerstick) 205 mg/dL (70-99) 206 mg/dL (70-99) 139 mg/dL (70-99) Sodium Level 142 mmol/L (136-145) Potassium Level 4.3 mmol/L (3.5-5.1) Chloride Level 100 mmol/L (98-107) Carbon Dioxide Level 33 mmol/L (21-32) Anion Gap 9 (6-14) Blood Urea Nitrogen 47 mg/dL (8-26) Creatinine 6.1 mg/dL (0.7-1.3) Estimated GFR (Cockcroft-Gault) 9.1 Glucose Level 150 mg/dL (70-99) Calcium Level 9.0 mg/dL (8.5-10.1) Phosphorus Level 5.3 mg/dL (2.6-4.7) Magnesium Level 2.1 mg/dL (1.8-2.4) Albumin 2.7 g/dL (3.4-5.0) Medications Current Medications Albuterol/ Ipratropium (Duoneb) 3 ml 1X ONCE NEB Last administered on 03/17 07/02at 21:54; Start 04/09/19 at 22:00; Stop 04/09/19 at 22:01; Status DC Morphine Sulfate (Morphine Sulfate) 2 mg 1X ONCE IV ; Start 04/09/19 at 22:30; Stop 04/09/19 at 22:31; Status DC Heparin Sodium (Porcine) (Heparin Sodium) 3,600 unit 1X ONCE IV Last administered on 04/10/19at 00:24; Start 04/09/19 at 23:15; Stop 04/09/19 at 23:16; Status DC Heparin Sodium/ Dextrose 250 ml @ 0 mls/hr CONT PRN IV PER PROTOCOL Last administered on 04/14/19at 21:04; Start 04/09/19 at 23:15 Heparin Sodium (Porcine) (Heparin Sodium) 1,500 unit PRN Q6HRS PRN IV FOR UFH LEVEL LESS THAN 0.2 Last administered on 04/15/19at 04:58; Start 04/09/19 at 23:15 Ondansetron HCl (Zofran) 4 mg PRN Q8HRS PRN IV NAUSEA/VOMITING; Start 04/09/19 at 23:45; Stop 04/10/19 at 23:44; Status DC Acetaminophen (Tylenol) 650 mg PRN Q4HRS PRN PO FEVER; Start 04/09/19 at 23:45; Stop 04/10/19 at 23:44; Status DC Nitroglycerin (Nitrostat) 0.4 mg PRN Q5MIN PRN SL CHEST PAIN; Start 04/09/19 at 23:45; Stop 04/10/19 at 23:44; Status DC Albuterol/ Ipratropium (Duoneb) 3 ml RTQID NEB Last administered on 04/10/19at 19:36; Start 04/10/19 at 08:00; Stop 04/11/19 at 07:59; Status DC Info (Anti-Coagulation Monitoring By Pharmacy) 1 each PRN DAILY PRN MC SEE COMMENTS Last administered on 04/12/19at 08:23; Start 04/10/19 at 09:15 Aspirin (Children'S Aspirin) 81 mg DAILY PO Last administered on 04/16/19at 08:47; Start 04/10/19 at 11:00 Atorvastatin Calcium (Lipitor) 40 mg HS PO Last administered on 04/15/19at 20:23; Start 04/10/19 at 21:00 Clopidogrel Bisulfate (Plavix) 75 mg DAILY PO Last administered on 04/16/19at 08:47; Start 04/10/19 at 11:00 Isosorbide Mononitrate (Imdur) 30 mg DAILY PO Last administered on 04/16/19at 08:51; Start 04/10/19 at 11:00 Metoprolol Tartrate (Lopressor) 12.5 mg BID PO Last administered on 04/16/19at 08:47; Start 04/10/19 at 11:00 Sodium Chloride 1,000 ml @ 1,000 mls/hr Q1H PRN IV hypotension; Start 04/10/19 at 12:00; Stop 04/10/19 at 17:59; Status DC Sodium Chloride 1,000 ml @ 400 mls/hr Q2H30M PRN IV PATENCY; Start 04/10/19 at 12:00; Stop 04/10/19 at 23:59; Status DC Info (PHARMACY MONITORING -- do not chart) 1 each PRN DAILY PRN MC SEE COMMENTS; Start 04/10/19 at 15:15; Status UNV Info (PHARMACY MONITORING -- do not chart) 1 each PRN DAILY PRN MC SEE COMMENTS; Start 04/10/19 at 15:15; Status Cancel Sodium Chloride 1,000 ml @ 1,000 mls/hr Q1H PRN IV hypotension; Start 04/10/19 at 12:00; Stop 04/10/19 at 17:59; Status DC Sodium Chloride 1,000 ml @ 400 mls/hr Q2H30M PRN IV PATENCY; Start 04/10/19 at 12:00; Stop 04/10/19 at 23:59; Status DC Info (PHARMACY MONITORING -- do not chart) 1 each PRN DAILY PRN MC SEE COMMENTS; Start 04/10/19 at 16:00; Status UNV Info (PHARMACY MONITORING -- do not chart) 1 each PRN DAILY PRN MC SEE COMMENTS; Start 04/10/19 at 16:00; Stop 04/12/19 at 08:21; Status DC Lisinopril (Prinivil) 5 mg DAILY PO Last administered on 04/16/19at 08:47; Start 04/10/19 at 17:00 Albuterol Sulfate (Ventolin Neb Soln) 2.5 mg PRN Q4HRS PRN INH SHORTNESS OF BREATH; Start 04/10/19 at 17:45 Info (CONTRAST GIVEN -- Rx MONITORING) 1 each PRN DAILY PRN MC SEE COMMENTS; Start 04/10/19 at 18:00; Stop 04/12/19 at 17:59; Status DC Morphine Sulfate (Morphine Sulfate) 2 mg PRN Q2HR PRN IV PAIN Last administered on 04/13/19at 19:34; Start 04/10/19 at 19:45 Albuterol/ Ipratropium (Duoneb) 3 ml RTQID NEB Last administered on 04/16/19at 08:26; Start 04/11/19 at 08:00 Sodium Chloride 1,000 ml @ 1,000 mls/hr Q1H PRN IV hypotension; Start 04/12/19 at 07:43; Stop 04/12/19 at 13:42; Status DC Sodium Chloride 1,000 ml @ 400 mls/hr Q2H30M PRN IV PATENCY; Start 04/12/19 at 07:43; Stop 04/12/19 at 19:42; Status DC Info (PHARMACY MONITORING -- do not chart) 1 each PRN DAILY PRN MC SEE COMMENTS; Start 04/12/19 at 07:45; Status UNV Info (PHARMACY MONITORING -- do not chart) 1 each PRN DAILY PRN MC SEE COMMENTS; Start 04/12/19 at 07:45; Stop 04/15/19 at 08:42; Status DC Magnesium Sulfate 50 ml @ 25 mls/hr PRN DAILY PRN IV for Mag < 1.7 on am labs; Start 04/14/19 at 09:00 Sodium Chloride 1,000 ml @ 1,000 mls/hr Q1H PRN IV hypotension; Start 04/15/19 at 08:17; Stop 04/15/19 at 14:16; Status DC Sodium Chloride 1,000 ml @ 400 mls/hr Q2H30M PRN IV PATENCY; Start 04/15/19 at 0 8:17; Stop 04/15/19 at 20:16; Status DC Info (PHARMACY MONITORING -- do not chart) 1 each PRN DAILY PRN MC SEE COMMENTS; Start 04/15/19 at 08:30; Status UNV Info (PHARMACY MONITORING -- do not chart) 1 each PRN DAILY PRN MC SEE COMMENTS; Start 04/15/19 at 08:30 Darbepoetin Chad (ARANESP for DIALYSIS PTS) 60 mcg Mo SQ Last administered on 04/15/19at 20:24; Start 04/15/19 at 21:00 Active Scripts Active Reported Aspirin 81 Mg Tab.chew 81 Mg PO DAILY Atorvastatin Calcium 40 Mg Tablet 40 Mg PO HS Plavix (Clopidogrel Bisulfate) 75 Mg Tablet 75 Mg PO DAILY Melatonin 3 Mg Tablet 3 Mg PO HS Nephplex Rx Tablet (Vit B Cmplx No3/Fa/C/Biot/Zinc) 1 Each Tablet 1 Tab PO DAILY 30 Days Lantus Solostar (Insulin Glargine,Hum.rec.anlog) 100 Unit/1 Ml Insuln.pen 12 Unit SQ HS Novolog (Insulin Aspart) 100 Unit/1 Ml Vial 3 Unit SQ TIDWMEALS Renvela (Sevelamer Carbonate) 800 Mg Tablet 800 Mg PO TIDWMEALS Senna (Sennosides) 8.8 Mg/5 Ml Syrup 8.8 Mg PO DAILY PRN Vitals/I & O Vital Sign - Last 24 Hours 04/15/19 04/15/19 04/15/19 04/15/19 13:45 13:58 13:58 13:59 Temp 98.0 98.0 Pulse 88 88 88 88 Resp 20 B/P (MAP) 118/61 (80) 118/63 118/63 118/63 Pulse Ox 98 O2 Delivery Room Air 04/15/19 04/15/19 04/15/19 04/15/19 15:00 16:09 19:14 20:00 Temp 97.9 98.0 97.9 98.0 Pulse 98 85 Resp 20 18 B/P (MAP) 167/60 (95) 105/55 (72) Pulse Ox 97 97 93 O2 Delivery Room Air Room Air Room Air Room Air O2 Flow Rate 2.0 04/15/19 04/15/19 04/15/19 04/16/19 20:19 20:24 22:54 03:59 Temp 97.9 98.7 97.9 98.7 Pulse 85 84 80 Resp 16 16 B/P (MAP) 105/55 138/62 (87) 131/63 (85) Pulse Ox 97 98 97 O2 Delivery Room Air Room Air Room Air 04/16/19 04/16/19 04/16/19 04/16/19 07:00 08:00 08:26 08:47 Temp 97.6 97.6 Pulse 80 80 Resp 18 B/P (MAP) 137/63 (87) 137/63 Pulse Ox 94 96 O2 Delivery Room Air Room Air Room Air 04/16/19 04/16/19 08:47 08:51 Pulse 80 80 B/P (MAP) 137/63 137/63 Intake and Output 04/15/19 04/15/19 04/16/19 15:00 23:00 07:00 Intake Total 240 ml 120 ml Balance 240 ml 120 ml Nutrition Consultation Dietary Evaluation: Recommendations by RD: Dietary education by RD, Increase Calorie Intake, PPN/TPN Comments: REC dysphagia II/renal/ADA diet w/thin liquids REC Glucerna (chocolate or vanilla) w/lunch and dinner REC Dany (orange) w/lunch and dinner - wound healing REV MVI - wound healing Expected Outcomes/Goals: PO intake to meet >75% est needs Interpretation of weight loss: >10% in 6 months Malnutrition Findings: Body Fat Depletion (Non Severe: Mod to Severe Weight Status: Appropriate SLAVA SETHI MD Apr 16, 2019 11:24
--- NOTE | 2019-04-16 11:53 | NUR ---
SS following up with discharge planning. Pt's niece requested that SS meet with her and pt to complete DPOA paperwork. SS met with pt and niece in room. As observed, pt was too confused to complete DPOA paperwork and was unable to sign. SS explained reasoning to pt's niece. SS rediscussed hospice services and discharge planning with pt's niece in front of pt. Pt's niece reported understanding that pt is medically stable and discharge decision needs to be made. Pt's niece has met with [facility] and is trying to decide between home with hospice and facility with hospice. Pt's niece requested to be given some time with her uncle and will notify SS of decision. SS will continue to follow for discharge planning.
--- NOTE | 2019-04-16 12:25 | PDOC ---
PULMONARY PROGRESS NOTES Subjective NO RESP COMPLAINTS Vitals Vital Signs Date Time Temp Pulse Resp B/P (MAP) Pulse Ox O2 Delivery O2 Flow Rate FiO2 04/16/19 11:59 98 Room Air 04/16/19 11:00 97.8 80 18 124/60 (81) 97.8 04/15/19 20:00 2.0 ROS: No Nausea, No Chest Pain, No Abdominal Pain, No Increase Cough General: Lethargic Lungs: Clear Cardiovascular: S1 Abdomen: Soft, Non-tender Neuro Exam: Alert Extremities: No Edema Skin: Warm Labs Laboratory Tests Test 04/14/19 16:49 04/14/19 18:35 04/14/19 19:28 04/15/19 03:00 Glucose (Fingerstick) 162 mg/dL (70-99) 126 mg/dL (70-99) Heparin Anti-Xa Act, Unfractionated 0.63 IU/mL (0.30-0.70) 0.19 IU/mL (0.30-0.70) Hemoglobin 8.8 g/dL (13.0-17.5) Sodium Level 143 mmol/L (136-145) Potassium Level 4.5 mmol/L (3.5-5.1) Chloride Level 103 mmol/L (98-107) Carbon Dioxide Level 27 mmol/L (21-32) Anion Gap 13 (6-14) Blood Urea Nitrogen 71 mg/dL (8-26) Creatinine 9.1 mg/dL (0.7-1.3) Estimated GFR (Cockcroft-Gault) 5.7 Glucose Level 147 mg/dL (70-99) Calcium Level 9.2 mg/dL (8.5-10.1) Phosphorus Level 7.3 mg/dL (2.6-4.7) Magnesium Level 2.4 mg/dL (1.8-2.4) Albumin 2.7 g/dL (3.4-5.0) Test 04/15/19 07:51 04/15/19 10:47 04/15/19 16:55 04/15/19 20:42 Glucose (Fingerstick) 129 mg/dL (70-99) 205 mg/dL (70-99) 206 mg/dL (70-99) Heparin Anti-Xa Act, Unfractionated 0.54 IU/mL (0.30-0.70) Test 04/16/19 06:40 04/16/19 07:35 04/16/19 11:52 Sodium Level 142 mmol/L (136-145) Potassium Level 4.3 mmol/L (3.5-5.1) Chloride Level 100 mmol/L (98-107) Carbon Dioxide Level 33 mmol/L (21-32) Anion Gap 9 (6-14) Blood Urea Nitrogen 47 mg/dL (8-26) Creatinine 6.1 mg/dL (0.7-1.3) Estimated GFR (Cockcroft-Gault) 9.1 Glucose Level 150 mg/dL (70-99) Calcium Level 9.0 mg/dL (8.5-10.1) Phosphorus Level 5.3 mg/dL (2.6-4.7) Magnesium Level 2.1 mg/dL (1.8-2.4) Albumin 2.7 g/dL (3.4-5.0) Glucose (Fingerstick) 139 mg/dL (70-99) 164 mg/dL (70-99) Laboratory Tests Test 04/15/19 16:55 04/15/19 20:42 04/16/19 06:40 04/16/19 07:35 Glucose (Fingerstick) 205 mg/dL (70-99) 206 mg/dL (70-99) 139 mg/dL (70-99) Sodium Level 142 mmol/L (136-145) Potassium Level 4.3 mmol/L (3.5-5.1) Chloride Level 100 mmol/L (98-107) Carbon Dioxide Level 33 mmol/L (21-32) Anion Gap 9 (6-14) Blood Urea Nitrogen 47 mg/dL (8-26) Creatinine 6.1 mg/dL (0.7-1.3) Estimated GFR (Cockcroft-Gault) 9.1 Glucose Level 150 mg/dL (70-99) Calcium Level 9.0 mg/dL (8.5-10.1) Phosphorus Level 5.3 mg/dL (2.6-4.7) Magnesium Level 2.1 mg/dL (1.8-2.4) Albumin 2.7 g/dL (3.4-5.0) Test 04/16/19 11:52 Glucose (Fingerstick) 164 mg/dL (70-99) Medications Active Scripts Medications Dose Route/Sig Max Daily Dose Days Date Category Aspirin 81 Mg Tab.chew 81 Mg PO DAILY 04/10/19 Reported Atorvastatin Calcium 40 Mg Tablet 40 Mg PO HS 04/10/19 Reported Plavix (Clopidogrel Bisulfate) 75 Mg Tablet 75 Mg PO DAILY 04/10/19 Reported Melatonin 3 Mg Tablet 3 Mg PO HS 04/10/19 Reported Nephplex Rx Tablet (Vit B Cmplx No3/Fa/C/Biot/Zinc) 1 Each Tablet 1 Tab PO DAILY 30 04/10/19 Reported Lantus Solostar (Insulin Glargine,Hum.rec.anlog) 100 Unit/1 Ml Insuln.pen 12 Unit SQ HS 04/10/19 Reported Novolog (Insulin Aspart) 100 Unit/1 Ml Vial 3 Unit SQ TIDWMEALS 04/10/19 Reported Renvela (Sevelamer Carbonate) 800 Mg Tablet 800 Mg PO TIDWMEALS 04/10/19 Reported Senna (Sennosides) 8.8 Mg/5 Ml Syrup 8.8 Mg PO DAILY PRN 04/10/19 Reported Impression . IMPRESSION: 1. Acute hypoxemic respiratory failure. 2. Acute on chronic systolic heart failure. 3. End-stage renal disease. 4. Cardiomyopathy with decreased ejection fraction. 5. Non-ST segment elevation myocardial infarction. 6. Moderate to severe coronary artery disease. 7. Hypertension. 8. End-stage renal disease, on hemodialysis. Plan . D/C PLANNING IN PLACE RESP STATUS COMPENSATED OFF TO DECIDE ABOUT HOSPICE WILL SIGN OFF TJ ESPAÑA MD Apr 16, 2019 12:24
--- NOTE | 2019-04-16 13:54 | PDOC ---
SUBJECTIVE ROS No complaints or concerns voiced by Pt financial coordinator OBJECTIVE Vital Signs Vital Signs Date Time Temp Pulse Resp B/P (MAP) Pulse Ox O2 Delivery O2 Flow Rate FiO2 04/16/19 11:59 98 Room Air 04/16/19 11:00 97.8 80 18 124/60 (81) 97.8 04/15/19 20:00 2.0 I & 0 Intake and Output 04/16/19 07:00 Intake Total 360 ml Balance 360 ml Intake Oral 360 ml # Voids 6 PHYSICAL EXAM Physical Exam General: NAD HEENT: OM moist Lungs: CTA , Non labored Heart: Regular rate Abdomen: Normal bowel sounds, Soft, No tenderness Extremities: No edema Skin: No rash DIAGNOSIS/ASSESSMENT Assessment & Plan ESRD- On HD MWF at , has been on for 2-3 years No indication for HD today Acute on chronic systolic CHF secondary to missed HD; Echo showed LVEF 20-25%. previously 50% per echo 11/2018. CAD; severe CAD. Cath 12/01 . Moderate to severe LAD disease and LCx subtotal occlusion (unsuccessful attempt for PCI). Deemed poor surgical candidate due to comorbidities. Anemia- Per primary ANETA per protocol Acute pulmonary edema- stable Hazy bilateral airspace disease from infiltrates or edema. to decide about Hospice , DC per primary COMMENT/RELEVANT DATA Meds Current Medications Medications (Trade) Dose Ordered Sig/Magno Start Time Stop Time Status Last Admin Dose Admin Acetaminophen (Tylenol) 650 mg PRN Q4HRS PRN 04/09/19 23:45 04/10/19 23:44 DC Albuterol Sulfate (Ventolin Neb Soln) 2.5 mg PRN Q4HRS PRN 04/10/19 17:45 Albuterol/ Ipratropium (Duoneb) 3 ml RTQID 04/11/19 08:00 04/16/19 11:59 3 ML Aspirin (Children'S Aspirin) 81 mg DAILY 04/10/19 11:00 04/16/19 08:47 81 MG Atorvastatin Calcium (Lipitor) 40 mg HS 04/10/19 21:00 04/15/19 20:23 40 MG Clopidogrel Bisulfate (Plavix) 75 mg DAILY 04/10/19 11:00 04/16/19 08:47 75 MG Darbepoetin Chad (ARANESP for DIALYSIS PTS) 60 mcg Mo 04/15/19 21:00 04/15/19 20:24 60 MCG Heparin Sodium (Porcine) (Heparin Sodium) 1,500 unit PRN Q6HRS PRN 04/09/19 23:15 04/15/19 04:58 1,500 UNIT Heparin Sodium/ Dextrose 250 ml @ 0 mls/hr CONT PRN 04/09/19 23:15 04/14/19 21:04 7.8 MLS/HR Info (Anti-Coagulation Monitoring By Pharmacy) 1 each PRN DAILY PRN 04/10/19 09:15 04/12/19 08:23 1 EACH Info (CONTRAST GIVEN -- Rx MONITORING) 1 each PRN DAILY PRN 04/10/19 18:00 04/12/19 17:59 DC Info (PHARMACY MONITORING -- do not chart) 1 each PRN DAILY PRN 04/15/19 08:30 Isosorbide Mononitrate (Imdur) 30 mg DAILY 04/10/19 11:00 04/16/19 08:51 30 MG Lisinopril (Prinivil) 5 mg DAILY 04/10/19 17:00 04/16/19 08:47 5 MG Magnesium Sulfate 50 ml @ 25 mls/hr PRN DAILY PRN 04/14/19 09:00 Metoprolol Tartrate (Lopressor) 12.5 mg BID 04/10/19 11:00 04/16/19 08:47 12.5 MG Morphine Sulfate (Morphine Sulfate) 2 mg PRN Q2HR PRN 04/10/19 19:45 04/13/19 19:34 2 MG Nitroglycerin (Nitrostat) 0.4 mg PRN Q5MIN PRN 04/09/19 23:45 04/10/19 23:44 DC Ondansetron HCl (Zofran) 4 mg PRN Q8HRS PRN 04/09/19 23:45 04/10/19 23:44 DC Sodium Chloride 1,000 ml @ 400 mls/hr Q2H30M PRN 04/15/19 08:17 04/15/19 20:16 DC Lab Laboratory Tests Test 04/15/19 16:55 04/15/19 20:42 04/16/19 06:40 04/16/19 07:35 Glucose (Fingerstick) 205 mg/dL (70-99) 206 mg/dL (70-99) 139 mg/dL (70-99) Sodium Level 142 mmol/L (136-145) Potassium Level 4.3 mmol/L (3.5-5.1) Chloride Level 100 mmol/L (98-107) Carbon Dioxide Level 33 mmol/L (21-32) Anion Gap 9 (6-14) Blood Urea Nitrogen 47 mg/dL (8-26) Creatinine 6.1 mg/dL (0.7-1.3) Estimated GFR (Cockcroft-Gault) 9.1 Glucose Level 150 mg/dL (70-99) Calcium Level 9.0 mg/dL (8.5-10.1) Phosphorus Level 5.3 mg/dL (2.6-4.7) Magnesium Level 2.1 mg/dL (1.8-2.4) Albumin 2.7 g/dL (3.4-5.0) Test 04/16/19 11:52 Glucose (Fingerstick) 164 mg/dL (70-99) Results All relevant outside records, renal labs, imaging studies, telemetry/EKG's were reviewed. SEAN TILLMAN MD Apr 16, 2019 13:53
[2019-04-16 15:00] VITALS: BP 131/64
[2019-04-16 19:00] VITALS: BP 135/65
[2019-04-16] MEDS: ATORVASTATIN CALCIUM 40 MG TABLET. PO SCH (21:23)
[2019-04-16 22:35] VITALS: BP 143/67
[2019-04-17 03:18] VITALS: BP 159/74
[2019-04-17 07:00] VITALS: BP 134/58
[2019-04-17] MEDS: IPRATRPIUM/ALBUTEROL 0.5/2.5MG 3 ML NEBU. NEB SCH ×4 (07:25→20:25)
[2019-04-17] MEDS: CLOPIDOGREL BISULFATE 75 MG TABLET PO SCH (08:28)
[2019-04-17] MEDS: ASPIRIN CHEWABLE 81 MG TABLET. PO SCH (08:29)
[2019-04-17] MEDS: METOPROLOL TART IMMED RELEASE 25 MG TABLET. PO SCH ×2 (08:29→22:01)
[2019-04-17] MEDS: ISOSORBIDE MONONITRATE ER 30 MG TAB.ER.24H PO SCH (08:29)
[2019-04-17] MEDS: LISINOPRIL 5 MG TABLET. PO SCH (08:30)
[2019-04-17 10:32] LABS: ALBUMIN 2.9 g/dL (3.4-5.0); CALCIUM 9.1 mg/dL (8.5-10.1); CREATININE 7.3 mg/dL (0.7-1.3); GFR 7.4; PHOSPHORUS 7.2 mg/dL (2.6-4.7); POTASSIUM 4.5 mmol/L (3.5-5.1)
--- NOTE | 2019-04-17 10:51 | PDOC ---
SUBJECTIVE ROS Stable OBJECTIVE Vital Signs Vital Signs Date Time Temp Pulse Resp B/P (MAP) Pulse Ox O2 Delivery O2 Flow Rate FiO2 04/17/19 08:30 69 134/58 04/17/19 08:00 Room Air 04/17/19 07:26 99 04/17/19 07:00 96.6 16 96.6 I & 0 Intake and Output 04/17/19 07:00 # Voids 4 PHYSICAL EXAM Physical Exam General: NAD HEENT: OM moist Lungs: CTA , Non labored Heart: Regular rate Abdomen: Normal bowel sounds, Soft, No tenderness Extremities: No edema Skin: No rash DIAGNOSIS/ASSESSMENT Assessment & Plan ESRD- On HD MWF at , has been on for 2-3 years Seen on Hd, tolerating well, continue as ordered, Dionte Fitzpatrick Having some access issues- if Pt continues HD - may need arteriogram Acute on chronic systolic CHF secondary to missed HD; Echo showed LVEF 20-25%. previously 50% per echo 11/2018. CAD; severe CAD. Cath 12/01 . Moderate to severe LAD disease and LCx subtotal occlusion (unsuccessful attempt for PCI). Deemed poor surgical candidate due to comorbidities. Anemia- Per primary ANETA per protocol Acute pulmonary edema- stable Hazy bilateral airspace disease from infiltrates or edema. to decide about Hospice , DC per primary COMMENT/RELEVANT DATA Meds Current Medications Medications (Trade) Dose Ordered Sig/Magno Start Time Stop Time Status Last Admin Dose Admin Acetaminophen (Tylenol) 650 mg PRN Q4HRS PRN 04/09/19 23:45 04/10/19 23:44 DC Albuterol Sulfate (Ventolin Neb Soln) 2.5 mg PRN Q4HRS PRN 04/10/19 17:45 Albuterol/ Ipratropium (Duoneb) 3 ml RTQID 04/11/19 08:00 04/17/19 07:25 3 ML Aspirin (Children'S Aspirin) 81 mg DAILY 04/10/19 11:00 04/17/19 08:29 81 MG Atorvastatin Calcium (Lipitor) 40 mg HS 04/10/19 21:00 04/16/19 21:23 40 MG Clopidogrel Bisulfate (Plavix) 75 mg DAILY 04/10/19 11:00 04/17/19 08:28 75 MG Darbepoetin Chad (ARANESP for DIALYSIS PTS) 60 mcg Mo 04/15/19 21:00 04/15/19 20:24 60 MCG Heparin Sodium (Porcine) (Heparin Sodium) 1,500 unit PRN Q6HRS PRN 04/09/19 23:15 04/15/19 04:58 1,500 UNIT Heparin Sodium/ Dextrose 250 ml @ 0 mls/hr CONT PRN 04/09/19 23:15 04/14/19 21:04 7.8 MLS/HR Info (Anti-Coagulation Monitoring By Pharmacy) 1 each PRN DAILY PRN 04/10/19 09:15 04/12/19 08:23 1 EACH Info (CONTRAST GIVEN -- Rx MONITORING) 1 each PRN DAILY PRN 04/10/19 18:00 04/12/19 17:59 DC Info (PHARMACY MONITORING -- do not chart) 1 each PRN DAILY PRN 04/15/19 08:30 Isosorbide Mononitrate (Imdur) 30 mg DAILY 04/10/19 11:00 04/17/19 08:29 30 MG Lisinopril (Prinivil) 5 mg DAILY 04/10/19 17:00 04/17/19 08:30 5 MG Magnesium Sulfate 50 ml @ 25 mls/hr PRN DAILY PRN 04/14/19 09:00 Metoprolol Tartrate (Lopressor) 12.5 mg BID 04/10/19 11:00 04/17/19 08:29 12.5 MG Morphine Sulfate (Morphine Sulfate) 2 mg PRN Q2HR PRN 04/10/19 19:45 04/13/19 19:34 2 MG Nitroglycerin (Nitrostat) 0.4 mg PRN Q5MIN PRN 04/09/19 23:45 04/10/19 23:44 DC Ondansetron HCl (Zofran) 4 mg PRN Q8HRS PRN 04/09/19 23:45 04/10/19 23:44 DC Sodium Chloride 1,000 ml @ 400 mls/hr Q2H30M PRN 04/15/19 08:17 04/15/19 20:16 DC Lab Laboratory Tests Test 04/16/19 11:52 04/16/19 17:12 04/16/19 20:33 04/17/19 05:05 Glucose (Fingerstick) 164 mg/dL (70-99) 188 mg/dL (70-99) 139 mg/dL (70-99) Sodium Level 145 mmol/L (136-145) Potassium Level 4.5 mmol/L (3.5-5.1) Chloride Level 101 mmol/L (98-107) Carbon Dioxide Level 32 mmol/L (21-32) Anion Gap 12 (6-14) Blood Urea Nitrogen 57 mg/dL (8-26) Creatinine 7.3 mg/dL (0.7-1.3) Estimated GFR (Cockcroft-Gault) 7.4 Glucose Level 144 mg/dL (70-99) Calcium Level 9.1 mg/dL (8.5-10.1) Phosphorus Level 7.2 mg/dL (2.6-4.7) Magnesium Level 2.4 mg/dL (1.8-2.4) Albumin 2.9 g/dL (3.4-5.0) Test 04/17/19 07:36 Glucose (Fingerstick) 140 mg/dL (70-99) Results All relevant outside records, renal labs, imaging studies, telemetry/EKG's were reviewed. SEAN TILLMAN MD Apr 17, 2019 10:51
--- NOTE | 2019-04-17 12:02 | PDOC ---
PROGRESS NOTES History of Present Illness History of Present Illness VTE Prophylaxis Ordered VTE Prophylaxis Devices: Yes VTE Pharmacological Prophylaxi: Yes DISCHARGE DX Assessment/Plan Impression: Acute pulmonary edema CHEST PAIN, UNSTABLE Hazy bilateral airspace disease from infiltrates or edema. Chest pain ACUTE NSTEMI (non-ST elevated myocardial infarction) severe LAD disease and LCx subtotal occlusion (unsuccessful attempt for PCI). RCA was nondominant and patent. poor surgical candidate due to comorbidities ESRD (end stage renal disease) on dialysis ADMITTED [facility] BED CONSULT CARDIOLOGY CONSULT NEPHROLOGY PULM CONSULT dvt prophylaxis followup with HF clinic upon discharge. REMAINS WEAK, SLOW TO IMPROVE * 2 weeks Discharge Recommendations * snu with hospice Discharge Recommendation - DME * Rolling Walker needed * and ambulation safely Discharge Recommendation Comments * SNU (possIBLE IGNITE ) * * * HOSPICE CONSULT 34 min pt exam, chart review d/c planning , > 50% of time spent with exam, chart review, pt care coordination Vitals Vitals Vital Signs Date Time Temp Pulse Resp B/P (MAP) Pulse Ox O2 Delivery O2 Flow Rate FiO2 04/17/19 08:30 69 134/58 04/17/19 08:00 Room Air 04/17/19 07:26 99 04/17/19 07:00 96.6 16 96.6 Physical Exam General: Alert, Oriented X3, Cooperative, No acute distress, mild distress Heart: Regular rate Lungs: Clear Abdomen: Normal bowel sounds, No tenderness Extremities: No clubbing, No cyanosis, No edema, Normal pulses Skin: No significant lesion Labs LABS Laboratory Tests Test 04/16/19 17:12 04/16/19 20:33 04/17/19 05:05 04/17/19 07:36 Glucose (Fingerstick) 188 mg/dL (70-99) 139 mg/dL (70-99) 140 mg/dL (70-99) Sodium Level 145 mmol/L (136-145) Potassium Level 4.5 mmol/L (3.5-5.1) Chloride Level 101 mmol/L (98-107) Carbon Dioxide Level 32 mmol/L (21-32) Anion Gap 12 (6-14) Blood Urea Nitrogen 57 mg/dL (8-26) Creatinine 7.3 mg/dL (0.7-1.3) Estimated GFR (Cockcroft-Gault) 7.4 Glucose Level 144 mg/dL (70-99) Calcium Level 9.1 mg/dL (8.5-10.1) Phosphorus Level 7.2 mg/dL (2.6-4.7) Magnesium Level 2.4 mg/dL (1.8-2.4) Albumin 2.9 g/dL (3.4-5.0) Assessment and Plan Assessmemt and Plan Problems Medical Problems: (1) Acute pulmonary edema Status: Acute (2) Chest pain Status: Acute (3) ESRD (end stage renal disease) on dialysis Status: Acute (4) NSTEMI (non-ST elevated myocardial infarction) Status: Acute Comment Review of Relevant I have reviewed the following items ngozi (where applicable) has been applied. Labs Laboratory Tests Test 04/15/19 16:55 04/15/19 20:42 04/16/19 06:40 04/16/19 07:35 Glucose (Fingerstick) 205 mg/dL (70-99) 206 mg/dL (70-99) 139 mg/dL (70-99) Sodium Level 142 mmol/L (136-145) Potassium Level 4.3 mmol/L (3.5-5.1) Chloride Level 100 mmol/L (98-107) Carbon Dioxide Level 33 mmol/L (21-32) Anion Gap 9 (6-14) Blood Urea Nitrogen 47 mg/dL (8-26) Creatinine 6.1 mg/dL (0.7-1.3) Estimated GFR (Cockcroft-Gault) 9.1 Glucose Level 150 mg/dL (70-99) Calcium Level 9.0 mg/dL (8.5-10.1) Phosphorus Level 5.3 mg/dL (2.6-4.7) Magnesium Level 2.1 mg/dL (1.8-2.4) Albumin 2.7 g/dL (3.4-5.0) Test 04/16/19 11:52 04/16/19 17:12 04/16/19 20:33 04/17/19 05:05 Glucose (Fingerstick) 164 mg/dL (70-99) 188 mg/dL (70-99) 139 mg/dL (70-99) Sodium Level 145 mmol/L (136-145) Potassium Level 4.5 mmol/L (3.5-5.1) Chloride Level 101 mmol/L (98-107) Carbon Dioxide Level 32 mmol/L (21-32) Anion Gap 12 (6-14) Blood Urea Nitrogen 57 mg/dL (8-26) Creatinine 7.3 mg/dL (0.7-1.3) Estimated GFR (Cockcroft-Gault) 7.4 Glucose Level 144 mg/dL (70-99) Calcium Level 9.1 mg/dL (8.5-10.1) Phosphorus Level 7.2 mg/dL (2.6-4.7) Magnesium Level 2.4 mg/dL (1.8-2.4) Albumin 2.9 g/dL (3.4-5.0) Test 04/17/19 07:36 Glucose (Fingerstick) 140 mg/dL (70-99) Laboratory Tests Test 04/16/19 17:12 04/16/19 20:33 04/17/19 05:05 04/17/19 07:36 Glucose (Fingerstick) 188 mg/dL (70-99) 139 mg/dL (70-99) 140 mg/dL (70-99) Sodium Level 145 mmol/L (136-145) Potassium Level 4.5 mmol/L (3.5-5.1) Chloride Level 101 mmol/L (98-107) Carbon Dioxide Level 32 mmol/L (21-32) Anion Gap 12 (6-14) Blood Urea Nitrogen 57 mg/dL (8-26) Creatinine 7.3 mg/dL (0.7-1.3) Estimated GFR (Cockcroft-Gault) 7.4 Glucose Level 144 mg/dL (70-99) Calcium Level 9.1 mg/dL (8.5-10.1) Phosphorus Level 7.2 mg/dL (2.6-4.7) Magnesium Level 2.4 mg/dL (1.8-2.4) Albumin 2.9 g/dL (3.4-5.0) Medications Current Medications Albuterol/ Ipratropium (Duoneb) 3 ml 1X ONCE NEB Last administered on 04/09/19at 21:54; Start 04/09/19 at 22:00; Stop 04/09/19 at 22:01; Status DC Morphine Sulfate (Morphine Sulfate) 2 mg 1X ONCE IV ; Start 04/09/19 at 22:30; Stop 04/09/19 at 22:31; Status DC Heparin Sodium (Porcine) (Heparin Sodium) 3,600 unit 1X ONCE IV Last administered on 04/10/19at 00:24; Start 04/09/19 at 23:15; Stop 04/09/19 at 23 :16; Status DC Heparin Sodium/ Dextrose 250 ml @ 0 mls/hr CONT PRN IV PER PROTOCOL Last administered on 04/14/19at 21:04; Start 04/09/19 at 23:15 Heparin Sodium (Porcine) (Heparin Sodium) 1,500 unit PRN Q6HRS PRN IV FOR UFH LEVEL LESS THAN 0.2 Last administered on 04/15/19at 04:58; Start 04/09/19 at 23:15 Ondansetron HCl (Zofran) 4 mg PRN Q8HRS PRN IV NAUSEA/VOMITING; Start 04/09/19 at 23:45; Stop 04/10/19 at 23:44; Status DC Acetaminophen (Tylenol) 650 mg PRN Q4HRS PRN PO FEVER; Start 04/09/19 at 23:45; Stop 04/10/19 at 23:44; Status DC Nitroglycerin (Nitrostat) 0.4 mg PRN Q5MIN PRN SL CHEST PAIN; Start 04/09/19 at 23:45; Stop 04/10/19 at 23:44; Status DC Albuterol/ Ipratropium (Duoneb) 3 ml RTQID NEB Last administered on 04/10/19at 19:36; Start 04/10/19 at 08:00; Stop 04/11/19 at 07:59; Status DC Info (Anti-Coagulation Monitoring By Pharmacy) 1 each PRN DAILY PRN MC SEE COMM ENTS Last administered on 04/12/19at 08:23; Start 04/10/19 at 09:15 Aspirin (Children'S Aspirin) 81 mg DAILY PO Last administered on 04/17/19 08:29; Start 04/10/19 at 11:00 Atorvastatin Calcium (Lipitor) 40 mg HS PO Last administered on 04/16/19 21:23; Start 04/10/19 at 21:00 Clopidogrel Bisulfate (Plavix) 75 mg DAILY PO Last administered on 3/4/20at 08:28; Start 04/10/19 at 11:00 Isosorbide Mononitrate (Imdur) 30 mg DAILY PO Last administered on 04/17/19at 08:29; Start 04/10/19 at 11:00 Metoprolol Tartrate (Lopressor) 12.5 mg BID PO Last administered on 04/17/19 08:29; Start 04/10/19 at 11:00 Sodium Chloride 1,000 ml @ 1,000 mls/hr Q1H PRN IV hypotension; Start 04/10/19 at 12:00; Stop 04/10/19 at 17:59; Status DC Sodium Chloride 1,000 ml @ 400 mls/hr Q2H30M PRN IV PATENCY; Start 04/10/19 at 12:00; Stop 04/10/19 at 23:59; Status DC Info (PHARMACY MONITORING -- do not chart) 1 each PRN DAILY PRN MC SEE COMMENTS; Start 04/10/19 at 15:15; Status UNV Info (PHARMACY MONITORING -- do not chart) 1 each PRN DAILY PRN MC SEE COMMENTS; Start 04/10/19 at 15:15; Status Cancel Sodium Chloride 1,000 ml @ 1,000 mls/hr Q1H PRN IV hypotension; Start 04/10/19 at 12:00; Stop 04/10/19 at 17:59; Status DC Sodium Chloride 1,000 ml @ 400 mls/hr Q2H30M PRN IV PATENCY; Start 04/10/19 at 12:00; Stop 04/10/19 at 23:59; Status DC Info (PHARMACY MONITORING -- do not chart) 1 each PRN DAILY PRN MC SEE COMMENTS; Start 04/10/19 at 16:00; Status UNV Info (PHARMACY MONITORING -- do not chart) 1 each PRN DAILY PRN MC SEE COMMENT S; Start 04/10/19 at 16:00; Stop 04/12/19 at 08:21; Status DC Lisinopril (Prinivil) 5 mg DAILY PO Last administered on 04/17/19at 08:30; Start 04/10/19 at 17:00 Albuterol Sulfate (Ventolin Neb Soln) 2.5 mg PRN Q4HRS PRN INH SHORTNESS OF BREATH; Start 04/10/19 at 17:45 Info (CONTRAST GIVEN -- Rx MONITORING) 1 each PRN DAILY PRN MC SEE COMMENTS; Start 04/10/19 at 18:00; Stop 04/12/19 at 17:59; Status DC Morphine Sulfate (Morphine Sulfate) 2 mg PRN Q2HR PRN IV PAIN Last administered on 04/13/19at 19:34; Start 04/10/19 at 19:45 Albuterol/ Ipratropium (Duoneb) 3 ml RTQID NEB Last administered on 04/17/19at 07:25; Start 04/11/19 at 08:00 Sodium Chloride 1,000 ml @ 1,000 mls/hr Q1H PRN IV hypotension; Start 04/12/19 at 07:43; Stop 04/12/19 at 13:42; Status DC Sodium Chloride 1,000 ml @ 400 mls/hr Q2H30M PRN IV PATENCY; Start 04/12/19 at 07:43; Stop 04/12/19 at 19:42; Status DC Info (PHARMACY MONITORING -- do not chart) 1 each PRN DAILY PRN MC SEE COMMENTS; Start 04/12/19 at 07:45; Status UNV Info (PHARMACY MONITORING -- do not chart) 1 each PRN DAILY PRN MC SEE COMMENTS; Start 04/12/19 at 07:45; Stop 04/15/19 at 08:42; Status DC Magnesium Sulfate 50 ml @ 25 mls/hr PRN DAILY PRN IV for Mag < 1.7 on am labs; Start 04/14/19 at 09:00 Sodium Chloride 1,000 ml @ 1,000 mls/hr Q1H PRN IV hypotension; Start 04/15/19 at 08:17; Stop 04/15/19 at 14:16; Status DC Sodium Chloride 1,000 ml @ 400 mls/hr Q2H30M PRN IV PATENCY; Start 04/15/19 at 08:17; Stop 04/15/19 at 20:16; Status DC Info (PHARMACY MONITORING -- do not chart) 1 each PRN DAILY PRN MC SEE COMMENTS; Start 04/15/19 at 08:30; Status UNV Info (PHARMACY MONITORING -- do not chart) 1 each PRN DAILY PRN MC SEE COMMENTS; Start 04/15/19 at 08:30 Darbepoetin Chad (ARANESP for DIALYSIS PTS) 60 mcg Mo SQ Last administered on 04/15/19at 20:24; Start 04/15/19 at 21:00 Active Scripts Active Reported Aspirin 81 Mg Tab.chew 81 Mg PO DAILY Atorvastatin Calcium 40 Mg Tablet 40 Mg PO HS Plavix (Clopidogrel Bisulfate) 75 Mg Tablet 75 Mg PO DAILY Melatonin 3 Mg Tablet 3 Mg PO HS Nephplex Rx Tablet (Vit B Cmplx No3/Fa/C/Biot/Zinc) 1 Each Tablet 1 Tab PO DAILY 30 Days Lantus Solostar (Insulin Glargine,Hum.rec.anlog) 100 Unit/1 Ml Insuln.pen 12 Unit SQ HS Novolog (Insulin Aspart) 100 Unit/1 Ml Vial 3 Unit SQ TIDWMEALS Renvela (Sevelamer Carbonate) 800 Mg Tablet 800 Mg PO TIDWMEALS Senna (Sennosides) 8.8 Mg/5 Ml Syrup 8.8 Mg PO DAILY PRN Vitals/I & O Vital Sign - Last 24 Hours 04/16/19 04/16/19 04/16/19 04/16/19 15:00 15:29 19:00 19:12 Temp 97.3 97.0 97.3 97.0 Pulse 80 85 Resp 18 18 B/P (MAP) 131/64 (86) 135/65 (88) Pulse Ox 97 98 100 O2 Delivery Room Air Room Air Room Air Room Air 04/16/19 04/16/19 04/16/19 04/17/19 19:17 21:23 22:35 03:18 Temp 97.3 97.4 97.3 97.4 Pulse 79 73 80 Resp 18 18 B/P (MAP) 145/66 143/67 (92) 159/74 (102) Pulse Ox 99 100 98 O2 Delivery Room Air Room Air Room Air 04/17/19 04/17/19 04/17/19 04/17/19 07:00 07:26 08:00 08:29 Temp 96.6 96.6 Pulse 69 69 Resp 16 B/P (MAP) 134/58 (83) 134/58 Pulse Ox 100 99 O2 Delivery Room Air Room Air Room Air 04/17/19 04/17/19 08:29 08:30 Pulse 69 69 B/P (MAP) 134/58 134/58 Nutrition Consultation Dietary Evaluation: Recommendations by RD: Dietary education by RD, Increase Calorie Intake, PPN/TPN Comments: REC dysphagia II/renal/ADA diet w/honey thick liquids REC Ensure chocolate pudding TID REC MVI q day and vit c 500 mg BID - wound healing Expected Outcomes/Goals: PO intake to meet >75% est needs - not met, goal ongoing improved wound status - goal ongoing Interpretation of weight loss: >10% in 6 months Malnutrition Findings: Food and Nutrition Intake (Mod: <75% est energy req 7days Body Fat Depletion (Non Severe: Mild Depletion Weight Status: Underweight SLAVA SETHI MD Apr 17, 2019 12:02
--- NOTE | 2019-04-17 13:27 | PDOC3 ---
Discharge Summary Date of Admission: Apr 10, 2019 Date of Discharge: Apr 17, 2019 Follow-Up: 1-2 days Admitting Diagnosis comment: DISCHARGE DX Assessment/Plan Impression: Acute pulmonary edema CHEST PAIN, UNSTABLE Hazy bilateral airspace disease from infiltrates or edema. Chest pain ACUTE NSTEMI (non-ST elevated myocardial infarction) severe LAD disease and LCx subtotal occlusion (unsuccessful attempt for PCI). RCA was nondominant and patent. poor surgical candidate due to comorbidities ESRD (end stage renal disease) on dialysis ADMITTED [facility] BED CONSULT CARDIOLOGY CONSULT NEPHROLOGY PULM CONSULT dvt prophylaxis followup with HF clinic upon discharge. REMAINS WEAK, SLOW TO IMPROVE * 2 weeks Discharge Recommendations * snu with hospice Discharge Recommendation - DME * Rolling Walker needed * and ambulation safely Discharge Recommendation Comments * SNU (possIBLE IGNITE ) * * * HOSPICE CONSULT 34 min pt exam, chart review d/c planning , > 50% of time spent with exam, chart review, pt care coordination Vitals Vitals Vital Signs Date Time Temp Pulse Resp B/P (MAP) Pulse Ox O2 Delivery O2 Flow Rate FiO2 04/17/19 08:30 69 134/58 04/17/19 08:00 Room Air 04/17/19 07:26 99 04/17/19 07:00 96.6 16 96.6 Physical Exam General: Alert, Oriented X3, Cooperative, No acute distress, mild distress Heart: Regular rate Lungs: Clear Abdomen: Normal bowel sounds, No tenderness Extremities: No clubbing, No cyanosis, No edema, Normal pulses Skin: No significant lesion FINAL DIAGNOSIS Problems Medical Problems: (1) Acute pulmonary edema Status: Acute (2) Chest pain Status: Acute (3) ESRD (end stage renal disease) on dialysis Status: Acute (4) NSTEMI (non-ST elevated myocardial infarction) Status: Acute Brief Hospital Course Mr. Caballero is a 73 old [sex] who presented with [ NSTEMI, ESRD ] CONDITION AT DISCHARGE: Comment (GUARDED PROGNOSIS) Discharge Medications Current Medications Albuterol/ Ipratropium (Duoneb) 3 ml 1X ONCE NEB Last administered on 04/09/19at 21:54; Start 04/09/19 at 22:00; Stop 04/09/19 at 22:01; Status DC Morphine Sulfate (Morphine Sulfate) 2 mg 1X ONCE IV ; Start 04/09/19 at 22:30; Stop 04/09/19 at 22:31; Status DC Heparin Sodium (Porcine) (Heparin Sodium) 3,600 unit 1X ONCE IV Last administered on 04/10/19at 00:24; Start 04/09/19 at 23:15; Stop 04/09/19 at 23:16; Status DC Heparin Sodium/ Dextrose 250 ml @ 0 mls/hr CONT PRN IV PER PROTOCOL Last administered on 04/14/19at 21:04; Start 04/09/19 at 23:15 Heparin Sodium (Porcine) (Heparin Sodium) 1,500 unit PRN Q6HRS PRN IV FOR UFH LEVEL LESS THAN 0.2 Last administered on 04/15/19at 04:58; Start 04/09/19 at 23:15 Ondansetron HCl (Zofran) 4 mg PRN Q8HRS PRN IV NAUSEA/VOMITING; Start 04/09/19 at 23:45; Stop 04/10/19 at 23:44; Status DC Acetaminophen (Tylenol) 650 mg PRN Q4HRS PRN PO FEVER; Start 04/09/19 at 23:45; Stop 04/10/19 at 23:44; Status DC Nitroglycerin (Nitrostat) 0.4 mg PRN Q5MIN PRN SL CHEST PAIN; Start 04/09/19 at 23:45; Stop 04/10/19 at 23:44; Status DC Albuterol/ Ipratropium (Duoneb) 3 ml RTQID NEB Last administered on 04/10/19at 19:36; Start 04/10/19 at 08:00; Stop 04/11/19 at 07:59; Status DC Info (Anti-Coagulation Monitoring By Pharmacy) 1 each PRN DAILY PRN MC SEE COMMENTS Last administered on 04/12/19at 08:23; Start 04/10/19 at 09:15 Aspirin (Children'S Aspirin) 81 mg DAILY PO Last administered on 04/17/19 08:29; Start 04/10/19 at 11:00 Atorvastatin Calcium (Lipitor) 40 mg HS PO Last administered on 04/16/19 21:23; Start 04/10/19 at 21:00 Clopidogrel Bisulfate (Plavix) 75 mg DAILY PO Last administered on 3/4/20at 08:28; Start 04/10/19 at 11:00 Isosorbide Mononitrate (Imdur) 30 mg DAILY PO Last administered on 04/17/19at 08:29; Start 04/10/19 at 11:00 Metoprolol Tartrate (Lopressor) 12.5 mg BID PO Last administered on 04/17/19at 08:29; Start 04/10/19 at 11:00 Sodium Chloride 1,000 ml @ 1,000 mls/hr Q1H PRN IV hypotension; Start 04/10/19 at 12:00; Stop 04/10/19 at 17:59; Status DC Sodium Chloride 1,000 ml @ 400 mls/hr Q2H30M PRN IV PATENCY; Start 04/10/19 at 12:00; Stop 04/10/19 at 23:59; Status DC Info (PHARMACY MONITORING -- do not chart) 1 each PRN DAILY PRN MC SEE COMMENTS; Start 04/10/19 at 15:15; Status UNV Info (PHARMACY MONITORING -- do not chart) 1 each PRN DAILY PRN MC SEE COM MENTS; Start 04/10/19 at 15:15; Status Cancel Sodium Chloride 1,000 ml @ 1,000 mls/hr Q1H PRN IV hypotension; Start 04/10/19 at 12:00; Stop 04/10/19 at 17:59; Status DC Sodium Chloride 1,000 ml @ 400 mls/hr Q2H30M PRN IV PATENCY; Start 04/10/19 at 12:00; Stop 04/10/19 at 23:59; Status DC Info (PHARMACY MONITORING -- do not chart) 1 each PRN DAILY PRN MC SEE COMMENTS; Start 04/10/19 at 16:00; Status UNV Info (PHARMACY MONITORING -- do not chart) 1 each PRN DAILY PRN MC SEE COMMENTS; Start 04/10/19 at 16:00; Stop 04/12/19 at 08:21; Status DC Lisinopril (Prinivil) 5 mg DAILY PO Last administered on 04/17/19at 08:30; Start 04/10/19 at 17:00 Albuterol Sulfate (Ventolin Neb Soln) 2.5 mg PRN Q4HRS PRN INH SHORTNESS OF BREATH; Start 04/10/19 at 17:45 Info (CONTRAST GIVEN -- Rx MONITORING) 1 each PRN DAILY PRN MC SEE COMMENTS; Start 04/10/19 at 18:00; Stop 04/12/19 at 17:59; Status DC Morphine Sulfate (Morphine Sulfate) 2 mg PRN Q2HR PRN IV PAIN Last administered on 04/13/19at 19:34; Start 04/10/19 at 19:45 Albuterol/ Ipratropium (Duoneb) 3 ml RTQID NEB Last administered on 04/17/19at 07:25; Start 04/11/19 at 08:00 Sodium Chloride 1,000 ml @ 1,000 mls/hr Q1H PRN IV hypotension; Start 04/12/19 at 07:43; Stop 04/12/19 at 13:42; Status DC Sodium Chloride 1,000 ml @ 400 mls/hr Q2H30M PRN IV PATENCY; Start 04/12/19 at 07:43; Stop 04/12/19 at 19:42; Status DC Info (PHARMACY MONITORING -- do not chart) 1 each PRN DAILY PRN MC SEE COMMENTS; Start 04/12/19 at 07:45; Status UNV Info (PHARMACY MONITORING -- do not chart) 1 each PRN DAILY PRN MC SEE COMMENTS; Start 04/12/19 at 07:45; Stop 04/15/19 at 08:42; Status DC Magnesium Sulfate 50 ml @ 25 mls/hr PRN DAILY PRN IV for Mag < 1.7 on am labs; Start 04/14/19 at 09:00 Sodium Chloride 1,000 ml @ 1,000 mls/hr Q1H PRN IV hypotension; Start 04/15/19 at 08:17; Stop 04/15/19 at 14:16; Status DC Sodium Chloride 1,000 ml @ 400 mls/hr Q2H30M PRN IV PATENCY; Start 04/15/19 at 08:17; Stop 04/15/19 at 20:16; Status DC Info (PHARMACY MONITORING -- do not chart) 1 each PRN DAILY PRN MC SEE COMMENTS; Start 04/15/19 at 08:30; Status UNV Info (PHARMACY MONITORING -- do not chart) 1 each PRN DAILY PRN MC SEE COMMENTS; Start 04/15/19 at 08:30 Darbepoetin Chad (ARANESP for DIALYSIS PTS) 60 mcg Mo SQ Last administered on 04/15/19at 20:24; Start 04/15/19 at 21:00 Active Scripts Active Reported Aspirin 81 Mg Tab.chew 81 Mg PO DAILY Atorvastatin Calcium 40 Mg Tablet 40 Mg PO HS Plavix (Clopidogrel Bisulfate) 75 Mg Tablet 75 Mg PO DAILY Melatonin 3 Mg Tablet 3 Mg PO HS Nephplex Rx Tablet (Vit B Cmplx No3/Fa/C/Biot/Zinc) 1 Each Tablet 1 Tab PO DAILY 30 Days Lantus Solostar (Insulin Glargine,Hum.rec.anlog) 100 Unit/1 Ml Insuln.pen 12 Unit SQ HS Novolog (Insulin Aspart) 100 Unit/1 Ml Vial 3 Unit SQ TIDWMEALS Renvela (Sevelamer Carbonate) 800 Mg Tablet 800 Mg PO TIDWMEALS Senna (Sennosides) 8.8 Mg/5 Ml Syrup 8.8 Mg PO DAILY PRN Vital Signs Vital Signs Date Time Temp Pulse Resp B/P (MAP) Pulse Ox O2 Delivery O2 Flow Rate FiO2 04/17/19 08:30 69 134/58 04/17/19 08:00 Room Air 04/17/19 07:26 99 04/17/19 07:00 96.6 16 96.6 Labs Laboratory Tests Test 04/15/19 16:55 04/15/19 20:42 04/16/19 06:40 04/16/19 07:35 Glucose (Fingerstick) 205 mg/dL (70-99) 206 mg/dL (70-99) 139 mg/dL (70-99) Sodium Level 142 mmol/L (136-145) Potassium Level 4.3 mmol/L (3.5-5.1) Chloride Level 100 mmol/L (98-107) Carbon Dioxide Level 33 mmol/L (21-32) Anion Gap 9 (6-14) Blood Urea Nitrogen 47 mg/dL (8-26) Creatinine 6.1 mg/dL (0.7-1.3) Estimated GFR (Cockcroft-Gault) 9.1 Glucose Level 150 mg/dL (70-99) Calcium Level 9.0 mg/dL (8.5-10.1) Phosphorus Level 5.3 mg/dL (2.6-4.7) Magnesium Level 2.1 mg/dL (1.8-2.4) Albumin 2.7 g/dL (3.4-5.0) Test 04/16/19 11:52 04/16/19 17:12 04/16/19 20:33 04/17/19 05:05 Glucose (Fingerstick) 164 mg/dL (70-99) 188 mg/dL (70-99) 139 mg/dL (70-99) Sodium Level 145 mmol/L (136-145) Potassium Level 4.5 mmol/L (3.5-5.1) Chloride Level 101 mmol/L (98-107) Carbon Dioxide Level 32 mmol/L (21-32) Anion Gap 12 (6-14) Blood Urea Nitrogen 57 mg/dL (8-26) Creatinine 7.3 mg/dL (0.7-1.3) Estimated GFR (Cockcroft-Gault) 7.4 Glucose Level 144 mg/dL (70-99) Calcium Level 9.1 mg/dL (8.5-10.1) Phosphorus Level 7.2 mg/dL (2.6-4.7) Magnesium Level 2.4 mg/dL (1.8-2.4) Albumin 2.9 g/dL (3.4-5.0) Test 04/17/19 07:36 Glucose (Fingerstick) 140 mg/dL (70-99) Laboratory Tests Test 04/16/19 17:12 04/16/19 20:33 04/17/19 05:05 04/17/19 07:36 Glucose (Fingerstick) 188 mg/dL (70-99) 139 mg/dL (70-99) 140 mg/dL (70-99) Sodium Level 145 mmol/L (136-145) Potassium Level 4.5 mmol/L (3.5-5.1) Chloride Level 101 mmol/L (98-107) Carbon Dioxide Level 32 mmol/L (21-32) Anion Gap 12 (6-14) Blood Urea Nitrogen 57 mg/dL (8-26) Creatinine 7.3 mg/dL (0.7-1.3) Estimated GFR (Cockcroft-Gault) 7.4 Glucose Level 144 mg/dL (70-99) Calcium Level 9.1 mg/dL (8.5-10.1) Phosphorus Level 7.2 mg/dL (2.6-4.7) Magnesium Level 2.4 mg/dL (1.8-2.4) Albumin 2.9 g/dL (3.4-5.0) Allergies Allergies Coded Allergies Type Severity Reaction Last Updated Verified No Known Drug Allergies 04/09/19 No Disposition/Orders: Other (D/C TO SNF WITH HOSPICE) Patient Instructions D/C PLANNING 34 MIN SLAVA SETHI MD Apr 17, 2019 13:27
[2019-04-17] MEDS ORDERED: METO25TA4 PO (13:30)
[2019-04-17] MEDS ORDERED: ALBU2.5V8 INH (13:30)
[2019-04-17] MEDS ORDERED: ISOS30TA4 PO (13:30)
[2019-04-17] MEDS ORDERED: IPRA3AMP29 NEB (13:30)
[2019-04-17] MEDS ORDERED: LISI-338 PO (13:30)
--- NOTE | 2019-04-17 13:32 | SNU/HH DC ---
DISCHARGE ORDERS DISCHARGE INFORMATION: DISCHARGE DATE: Apr 17, 2019 FINAL DIAGNOSIS Problems Medical Problems: (1) Acute pulmonary edema Status: Acute (2) Chest pain Status: Acute (3) ESRD (end stage renal disease) on dialysis Status: Acute (4) NSTEMI (non-ST elevated myocardial infarction) Status: Acute CONDITION ON DISCHARGE: Guarded CODE STATUS: Code Status: DNR/DNI PENITENTIARY: SNF STAY <30 DAYS: No HOSPICE: HOSPICE: Yes HOSPICE EVAL & TREAT: Yes LTAC: ADMIT TO LTAC: No POST DISCHARGE ORDERS: ACTIVITY ORDERS: Activity as tolerated WEIGHT BEARING STATUS: Partial weight bearing DIET AFTER DISCHARGE: Renal CHECKS AFTER DISCHARGE: CHECKS AFTER DISCHARGE: Check blood press - daily TREATMENT/EQUIPMENT ORDERS: RESPIRATORY EQUIPMENT NEEDED: Oxygen, Nebulizer Physical Therapy For: Evalulation/Treatment Occupational Therapy For: Evaluation/Treatment Speech Language Pathology For: Evaluation/Treatment DISCHARGE MEDICATIONS: Home Meds Active Scripts Lisinopril (LISINOPRIL) 5 Mg Tablet, 5 MG PO DAILY for HEART for 30 Days, #30 TAB Prov:SLAVA SETHI MD 04/17/19 Metoprolol Tartrate (METOPROLOL TARTRATE) 25 Mg Tablet, 12.5 MG PO BID for HEART for 30 Days, #30 TAB Prov:SLAVA SETHI MD 04/17/19 Isosorbide Mononitrate (ISOSORBIDE MONONITRATE ER) 30 Mg Tab.er.24h, 30 MG PO DAILY for ANGINA for 30 Days, #30 TAB.SR Prov:SLAVA SETHI MD 04/17/19 Albuterol Sulfate (Proair Hfa) 8.5 Gm Hfa.aer.ad, 2.5 MG INH PRN Q4HRS PRN for SHORTNESS OF BREATH for 14 Days, #90 INHALER Prov:SLAVA SETHI MD 04/17/19 Ipratropium/Albuterol Sulfate (DUONEB 0.5-3(2.5) MG/3 ML) 3 Ml Ampul.neb, 3 ML NEB RTQID for COPD for 30 Days, #120 EACH Prov:SLAVA SETHI MD 04/17/19 Reported Medications Aspirin (ASPIRIN) 81 Mg Tab.chew, 81 MG PO DAILY for heart healthy, TAB.CHEW 04/10/19 Atorvastatin Calcium (ATORVASTATIN CALCIUM) 40 Mg Tablet, 40 MG PO HS for FOR CHOLESTEROL, #30 TAB 0 Refills 04/10/19 Clopidogrel Bisulfate (PLAVIX) 75 Mg Tablet, 75 MG PO DAILY for TO PREVENT BLOOD CLOTS, #30 TAB 0 Refills 04/10/19 Melatonin (MELATONIN) 3 Mg Tablet, 3 MG PO HS for insomnia, TAB 04/10/19 Vit B Cmplx No3/Fa/C/Biot/Zinc (NEPHPLEX RX TABLET) 1 Each Tablet, 1 TAB PO DAILY for supplement for 30 Days, #30 TAB 0 Refills 04/10/19 Insulin Glargine,Hum.rec.anlog (LANTUS SOLOSTAR) 100 Unit/1 Ml Insuln.pen, 12 UNIT SQ HS for hyperglycemia, SYR 04/10/19 Insulin Aspart (NOVOLOG) 100 Unit/1 Ml Vial, 3 UNIT SQ TIDWMEALS for hyperglycemia, VIAL 04/10/19 Sevelamer Carbonate (RENVELA) 800 Mg Tablet, 800 MG PO TIDWMEALS for supplement, TAB 04/10/19 Sennosides (SENNA) 8.8 Mg/5 Ml Syrup, 8.8 MG PO DAILY PRN for CONSTIPATION, MISC 04/10/19 SLAVA SETHI MD Apr 17, 2019 13:32
--- NOTE | 2019-04-17 15:17 | NUR ---
SS following up with discharge planning. Pt was clear yesterday afternoon and was able to complete DPOA for healthcare paperwork yesterday afternoon. SS met with pt today in dialysis to complete CARE Assessment and pt was confused again. Pt's DPOA, Mima, signed CARE Assessment. SS phoned and faxed discharge orders to [facility], ; fax [phone]. SS was informed by pt's DPOAMima, that pt would go to [facility] at discharge. SS phoned and faxed discharge orders and updated clinical to [facility], ; fax [phone]. [facility] contacted SS and reported that they have received all necessary paperwork, but may not be able to admit until the morning due to the fact that pt is too confused to sign private pay check tonight. They reported that they are checking with administration and will proceed accordingly with discharge planning.
--- NOTE | 2019-04-17 15:40 | NUR ---
Wound Care: Patient seen per wound care follow up. See wound assessment. Patient just returning from dialysis. patient has Stage III pressure ulcer to right lateral ankle and a DTI to the right heel. Wounds cleansed and assessed. Recommendations for foam dressing to the right heel and Hydrocolloid and foam dressing to the right lateral ankle. Dressings applied. No other wounds noted upon complete head to toe assessment. Dressing change instructions left in room. Patient is on a P-500 bed at this time. Patient anticipated to discharge possibly tomorrow per family at bedside. patient and family educated on turning and pressure relief. Bed lowered and call light in reach. Family remains at bedside. Will follow patient regarding wound care.
[2019-04-17 19:13] VITALS: BP 143/69
[2019-04-17] MEDS ORDERED: IV NORMAL SALINE 1000ML BAG 1,000 ML IV PRN (21:06)
[2019-04-17] MEDS ORDERED: DIALYSIS PATIENT. MC PRN ×2 (21:15)
[2019-04-17] MEDS: ACETAMINOPHEN 325 MG TABLET. PO PRN (21:58)
[2019-04-17] MEDS: ATORVASTATIN CALCIUM 40 MG TABLET. PO SCH (21:58)
[2019-04-17 22:25] VITALS: BP 112/57
[2019-04-18 02:35] VITALS: BP 126/63
[2019-04-18 05:09] LABS: CREATININE 5.1 mg/dL (0.7-1.3); GFR 11.2; POTASSIUM 4.7 mmol/L (3.5-5.1)
[2019-04-18 07:00] VITALS: BP 130/59
[2019-04-18] MEDS: IPRATRPIUM/ALBUTEROL 0.5/2.5MG 3 ML NEBU. NEB SCH ×2 (07:58→12:34)
[2019-04-18] MEDS: ISOSORBIDE MONONITRATE ER 30 MG TAB.ER.24H PO SCH (09:16)
[2019-04-18] MEDS: LISINOPRIL 5 MG TABLET. PO SCH (09:16)
[2019-04-18] MEDS: METOPROLOL TART IMMED RELEASE 25 MG TABLET. PO SCH (09:16)
[2019-04-18] MEDS: ASPIRIN CHEWABLE 81 MG TABLET. PO SCH (09:17)
[2019-04-18] MEDS: CLOPIDOGREL BISULFATE 75 MG TABLET PO SCH (09:17)
--- NOTE | 2019-04-18 10:42 | PDOC ---
PROGRESS NOTES History of Present Illness History of Present Illness VTE Prophylaxis Ordered VTE Prophylaxis Devices: Yes VTE Pharmacological Prophylaxi: Yes DISCHARGE DX Assessment/Plan Impression: Acute pulmonary edema CHEST PAIN, UNSTABLE Hazy bilateral airspace disease from infiltrates or edema. Chest pain ACUTE NSTEMI (non-ST elevated myocardial infarction) severe LAD disease and LCx subtotal occlusion (unsuccessful attempt for PCI). RCA was nondominant and patent. poor surgical candidate due to comorbidities ESRD (end stage renal disease) on dialysis ADMITTED [facility] BED CONSULT CARDIOLOGY CONSULT NEPHROLOGY PULM CONSULT dvt prophylaxis followup with HF clinic upon discharge. REMAINS WEAK, SLOW TO IMPROVE * 2 weeks Discharge Recommendations * snu with hospice Discharge Recommendation - DME * Rolling Walker needed * and ambulation safely Discharge Recommendation Comments * SNU (possIBLE IGNITE ) * * * HOSPICE CONSULT 27 min pt exam, chart review d/c planning , > 50% of time spent with exam, chart review, pt care coordination Vitals Vitals Vital Signs Date Time Temp Pulse Resp B/P (MAP) Pulse Ox O2 Delivery O2 Flow Rate FiO2 04/18/19 09:16 87 130/59 04/18/19 08:00 94 Room Air 04/18/19 07:00 98.0 16 98.0 Physical Exam General: Alert, Oriented X3, Cooperative, No acute distress Heart: Regular rate, Normal S1, No murmurs Lungs: Clear Abdomen: Normal bowel sounds, No tenderness Extremities: No clubbing, No cyanosis, No edema, Normal pulses, No tenderness/swelling Skin: No significant lesion Labs LABS Laboratory Tests Test 04/17/19 17:26 04/18/19 03:45 04/18/19 07:14 Glucose (Fingerstick) 104 mg/dL (70-99) 116 mg/dL (70-99) Sodium Level 143 mmol/L (136-145) Potassium Level 4.7 mmol/L (3.5-5.1) Chloride Level 101 mmol/L (98-107) Carbon Dioxide Level 34 mmol/L (21-32) Anion Gap 8 (6-14) Blood Urea Nitrogen 34 mg/dL (8-26) Creatinine 5.1 mg/dL (0.7-1.3) Estimated GFR (Cockcroft-Gault) 11.2 Glucose Level 100 mg/dL (70-99) Calcium Level 9.0 mg/dL (8.5-10.1) Phosphorus Level 5.0 mg/dL (2.6-4.7) Magnesium Level 2.1 mg/dL (1.8-2.4) Albumin 3.0 g/dL (3.4-5.0) Assessment and Plan Assessmemt and Plan Problems Medical Problems: (1) Acute pulmonary edema Status: Acute (2) Chest pain Status: Acute (3) ESRD (end stage renal disease) on dialysis Status: Acute (4) NSTEMI (non-ST elevated myocardial infarction) Status: Acute Comment Review of Relevant I have reviewed the following items ngozi (where applicable) has been applied. Labs Laboratory Tests Test 04/16/19 11:52 04/16/19 17:12 04/16/19 20:33 04/17/19 05:05 Glucose (Fingerstick) 164 mg/dL (70-99) 188 mg/dL (70-99) 139 mg/dL (70-99) Sodium Level 145 mmol/L (136-145) Potassium Level 4.5 mmol/L (3.5-5.1) Chloride Level 101 mmol/L (98-107) Carbon Dioxide Level 32 mmol/L (21-32) Anion Gap 12 (6-14) Blood Urea Nitrogen 57 mg/dL (8-26) Creatinine 7.3 mg/dL (0.7-1.3) Estimated GFR (Cockcroft-Gault) 7.4 Glucose Level 144 mg/dL (70-99) Calcium Level 9.1 mg/dL (8.5-10.1) Phosphorus Level 7.2 mg/dL (2.6-4.7) Magnesium Level 2.4 mg/dL (1.8-2.4) Albumin 2.9 g/dL (3.4-5.0) Test 04/17/19 07:36 04/17/19 17:26 04/18/19 03:45 04/18/19 07:14 Glucose (Fingerstick) 140 mg/dL (70-99) 104 mg/dL (70-99) 116 mg/dL (70-99) Sodium Level 143 mmol/L (136-145) Potassium Level 4.7 mmol/L (3.5-5.1) Chloride Level 101 mmol/L (98-107) Carbon Dioxide Level 34 mmol/L (21-32) Anion Gap 8 (6-14) Blood Urea Nitrogen 34 mg/dL (8-26) Creatinine 5.1 mg/dL (0.7-1.3) Estimated GFR (Cockcroft-Gault) 11.2 Glucose Level 100 mg/dL (70-99) Calcium Level 9.0 mg/dL (8.5-10.1) Phosphorus Level 5.0 mg/dL (2.6-4.7) Magnesium Level 2.1 mg/dL (1.8-2.4) Albumin 3.0 g/dL (3.4-5.0) Laboratory Tests Test 04/17/19 17:26 04/18/19 03:45 04/18/19 07:14 Glucose (Fingerstick) 104 mg/dL (70-99) 116 mg/dL (70-99) Sodium Level 143 mmol/L (136-145) Potassium Level 4.7 mmol/L (3.5-5.1) Chloride Level 101 mmol/L (98-107) Carbon Dioxide Level 34 mmol/L (21-32) Anion Gap 8 (6-14) Blood Urea Nitrogen 34 mg/dL (8-26) Creatinine 5.1 mg/dL (0.7-1.3) Estimated GFR (Cockcroft-Gault) 11.2 Glucose Level 100 mg/dL (70-99) Calcium Level 9.0 mg/dL (8.5-10.1) Phosphorus Level 5.0 mg/dL (2.6-4.7) Magnesium Level 2.1 mg/dL (1.8-2.4) Albumin 3.0 g/dL (3.4-5.0) Medications Current Medications Albuterol/ Ipratropium (Duoneb) 3 ml 1X ONCE NEB Last administered on 0at 21:54; Start 04/09/19 at 22:00; Stop 04/09/19 at 22:01; Status DC Morphine Sulfate (Morphine Sulfate) 2 mg 1X ONCE IV ; Start 04/09/19 at 22:30; Stop 04/09/19 at 22:31; Status DC Heparin Sodium (Porcine) (Heparin Sodium) 3,600 unit 1X ONCE IV Last administered on 04/10/19at 00:24; Start 04/09/19 at 23:15; Stop 04/09/19 at 23:16; Status DC Heparin Sodium/ Dextrose 250 ml @ 0 mls/hr CONT PRN IV PER PROTOCOL Last administered on 04/14/19at 21:04; Start 04/09/19 at 23:15 Heparin Sodium (Porcine) (Heparin Sodium) 1,500 unit PRN Q6HRS PRN IV FOR UFH LEVEL LESS THAN 0.2 Last administered on 04/15/19at 04:58; Start 04/09/19 at 23:15 Ondansetron HCl (Zofran) 4 mg PRN Q8HRS PRN IV NAUSEA/VOMITING; Start 04/09/19 at 23:45; Stop 04/10/19 at 23:44; Status DC Acetaminophen (Tylenol) 650 mg PRN Q4HRS PRN PO FEVER; Start 04/09/19 at 23:45; Stop 04/10/19 at 23:44; Status DC Nitroglycerin (Nitrostat) 0.4 mg PRN Q5MIN PRN SL CHEST PAIN; Start 04/09/19 at 23:45; Stop 04/10/19 at 23:44; Status DC Albuterol/ Ipratropium (Duoneb) 3 ml RTQID NEB Last administered on 04/10/19at 19:36; Start 04/10/19 at 08:00; Stop 04/11/19 at 07:59; Status DC Info (Anti-Coagulation Monitoring By Pharmacy) 1 each PRN DAILY PRN MC SEE COMMENTS Last administered on 04/12/19at 08:23; Start 04/10/19 at 09:15 Aspirin (Children'S Aspirin) 81 mg DAILY PO Last administered on 04/18/19at 09:17; Start 04/10/19 at 11:00 Atorvastatin Calcium (Lipitor) 40 mg HS PO Last administered on 04/17/19at 21:58; Start 04/10/19 at 21:00 Clopidogrel Bisulfate (Plavix) 75 mg DAILY PO Last administered on 04/18/19 09:17; Start 04/10/19 at 11:00 Isosorbide Mononitrate (Imdur) 30 mg DAILY PO Last administered on 04/18/19at 09:16; Start 04/10/19 at 11:00 Metoprolol Tartrate (Lopressor) 12.5 mg BID PO Last administered on 04/18/19at 09:16; Start 04/10/19 at 11:00 Sodium Chloride 1,000 ml @ 1,000 mls/hr Q1H PRN IV hypotension; Start 04/10/19 at 12:00; Stop 04/10/19 at 17:59; Status DC Sodium Chloride 1,000 ml @ 400 mls/hr Q2H30M PRN IV PATENCY; Start 04/10/19 at 12:00; Stop 04/10/19 at 23:59; Status DC Info (PHARMACY MONITORING -- do not chart) 1 each PRN DAILY PRN MC SEE COMMENTS; Start 04/10/19 at 15:15; Status UNV Info (PHARMACY MONITORING -- do not chart) 1 each PRN DAILY PRN MC SEE COMMENTS; Start 04/10/19 at 15:15; Status Cancel Sodium Chloride 1,000 ml @ 1,000 mls/hr Q1H PRN IV hypotension; Start 04/10/19 at 12:00; Stop 04/10/19 at 17:59; Status DC Sodium Chloride 1,000 ml @ 400 mls/hr Q2H30M PRN IV PATENCY; Start 04/10/19 at 12:00; Stop 04/10/19 at 23:59; Status DC Info (PHARMACY MONITORING -- do not chart) 1 each PRN DAILY PRN MC SEE COMMENTS; Start 04/10/19 at 16:00; Status UNV Info (PHARMACY MONITORING -- do not chart) 1 each PRN DAILY PRN MC SEE COMMENTS; Start 04/10/19 at 16:00; Stop 04/12/19 at 08:21; Status DC Lisinopril (Prinivil) 5 mg DAILY PO Last administered on 04/18/19at 09:16; Start 04/10/19 at 17:00 Albuterol Sulfate (Ventolin Neb Soln) 2.5 mg PRN Q4HRS PRN INH SHORTNESS OF BREATH; Start 04/10/19 at 17:45 Info (CONTRAST GIVEN -- Rx MONITORING) 1 each PRN DAILY PRN MC SEE COMMENTS; Start 04/10/19 at 18:00; Stop 04/12/19 at 17:59; Status DC Morphine Sulfate (Morphine Sulfate) 2 mg PRN Q2HR PRN IV PAIN Last administered on 04/13/19at 19:34; Start 04/10/19 at 19:45 Albuterol/ Ipratropium (Duoneb) 3 ml RTQID NEB Last administered on 04/18/19at 07:58; Start 04/11/19 at 08:00 Sodium Chloride 1,000 ml @ 1,000 mls/hr Q1H PRN IV hypotension; Start 04/12/19 at 07:43; Stop 04/12/19 at 13:42; Status DC Sodium Chloride 1,000 ml @ 400 mls/hr Q2H30M PRN IV PATENCY; Start 04/12/19 at 07:43; Stop 04/12/19 at 19:42; Status DC Info (PHARMACY MONITORING -- do not chart) 1 each PRN DAILY PRN MC SEE COMMENTS; Start 04/12/19 at 07:45; Status UNV Info (PHARMACY MONITORING -- do not chart) 1 each PRN DAILY PRN MC SEE COMMENTS; Start 04/12/19 at 07:45; Stop 04/15/19 at 08:42; Status DC Magnesium Sulfate 50 ml @ 25 mls/hr PRN DAILY PRN IV for Mag < 1.7 on am labs; Start 04/14/19 at 09:00 Sodium Chloride 1,000 ml @ 1,000 mls/hr Q1H PRN IV hypotension; Start 04/15/19 at 08:17; Stop 04/15/19 at 14:16; Status DC Sodium Chloride 1,000 ml @ 400 mls/hr Q2H30M PRN IV PATENCY; Start 04/15/19 at 08:17; Stop 04/15/19 at 20:16; Status DC Info (PHARMACY MONITORING -- do not chart) 1 each PRN DAILY PRN MC SEE COMMENTS; Start 04/15/19 at 08:30; Status UNV Info (PHARMACY MONITORING -- do not chart) 1 each PRN DAILY PRN MC SEE COMMENTS; Start 04/15/19 at 08:30 Darbepoetin Chad (ARANESP for DIALYSIS PTS) 60 mcg Mo SQ Last administered on 04/15/19at 20:24; Start 04/15/19 at 21:00 Sodium Chloride 1,000 ml @ 1,000 mls/hr Q1H PRN IV hypotension; Start 04/17/19 at 21:06; Stop 04/18/19 at 03:05; Status DC Info (PHARMACY MONITORING -- do not chart) 1 each PRN DAILY PRN MC SEE COMMENTS; Start 04/17/19 at 21:15 Info (PHARMACY MONITORING -- do not chart) 1 each PRN DAILY PRN MC SEE COMMENTS; Start 04/17/19 at 21:15; Status UNV Acetaminophen (Tylenol) 650 mg PRN Q6HRS PRN PO pain Last administered on 04/17/19at 21:58; Start 04/17/19 at 21:45 Active Scripts Active Lisinopril 5 Mg Tablet 5 Mg PO DAILY 30 Days Metoprolol Tartrate 25 Mg Tablet 12.5 Mg PO BID 30 Days Isosorbide Mononitrate Er (Isosorbide Mononitrate) 30 Mg Tab.er.24h 30 Mg PO DAILY 30 Days Proair Hfa (Albuterol Sulfate) 8.5 Gm Hfa.aer.ad 2.5 Mg INH PRN Q4HRS PRN 14 Days Duoneb 0.5-3(2.5) Mg/3 Ml (Albuterol/Ipratropium) 3 Ml Ampul.neb 3 Ml NEB RTQID 30 Days Reported Aspirin 81 Mg Tab.chew 81 Mg PO DAILY Atorvastatin Calcium 40 Mg Tablet 40 Mg PO HS Plavix (Clopidogrel Bisulfate) 75 Mg Tablet 75 Mg PO DAILY Melatonin 3 Mg Tablet 3 Mg PO HS Nephplex Rx Tablet (Vit B Cmplx No3/Fa/C/Biot/Zinc) 1 Each Tablet 1 Tab PO DAILY 30 Days Lantus Solostar (Insulin Glargine,Hum.rec.anlog) 100 Unit/1 Ml Insuln.pen 12 Unit SQ HS Novolog (Insulin Aspart) 100 Unit/1 Ml Vial 3 Unit SQ TIDWMEALS Renvela (Sevelamer Carbonate) 800 Mg Tablet 800 Mg PO TIDWMEALS Senna (Sennosides) 8.8 Mg/5 Ml Syrup 8.8 Mg PO DAILY PRN Vitals/I & O Vital Sign - Last 24 Hours 04/17/19 04/17/19 04/17/19 04/17/19 16:21 19:13 19:35 20:24 Temp 97.9 97.9 Pulse 77 Resp 16 B/P (MAP) 143/69 (93) Pulse Ox 100 99 99 O2 Delivery Room Air Room Air Room Air Room Air 04/17/19 04/17/19 04/18/19 04/18/19 22:01 22:25 02:35 07:00 Temp 98.1 97.7 98.0 98.1 97.7 98.0 Pulse 77 85 77 87 Resp 20 18 16 B/P (MAP) 143/69 112/57 (75) 126/63 (84) 130/59 (82) Pulse Ox 98 99 95 O2 Delivery Room Air Room Air Room Air 04/18/19 04/18/19 04/18/19 04/18/19 08:00 08:00 09:16 09:16 Pulse 87 87 B/P (MAP) 130/59 130/59 Pulse Ox 94 O2 Delivery Room Air Room Air 04/18/19 09:16 Pulse 87 B/P (MAP) 130/59 Intake and Output 04/17/19 04/17/19 04/18/19 15:00 23:00 07:00 Intake Total 50 ml 120 ml Balance 50 ml 120 ml Nutrition Consultation Dietary Evaluation: Recommendations by RD: Dietary education by RD, Increase Calorie Intake, PPN/TPN Comments: REC dysphagia II/renal/ADA diet w/honey thick liquids REC Ensure chocolate pudding TID REC MVI q day and vit c 500 mg BID - wound healing Expected Outcomes/Goals: PO intake to meet >75% est needs - not met, goal ongoing improved wound status - goal ongoing Interpretation of weight loss: >10% in 6 months Malnutrition Findings: Food and Nutrition Intake (Mod: <75% est energy req 7days Body Fat Depletion (Non Severe: Mild Depletion Weight Status: Underweight SLAVA SETHI MD Apr 18, 2019 10:42
[2019-04-18 11:00] VITALS: BP_SYST 104; BP_SYST 153; BP_DIAS 56; BP_DIAS 89
--- NOTE | 2019-04-18 11:17 | NUR ---
SS following up with discharge planning. Pt agreeable and oriented this morning to go to facility. [facility] came and met with pt in room and pt provided them with payment for LTC facility. Pt will discharge today and go to [facility], ; fax [phone], between 1430 and 1500 via stretcher. [facility] to provide transportation. Pt, pt's RN, and pt's family notified.
[2019-04-18] MEDS: ACETAMINOPHEN 325 MG TABLET. PO PRN (11:38)
[2019-04-18 15:00] VITALS: BP 105/56
--- NOTE | 2019-04-18 16:45 | NUR ---
Discharge Note: [facility] Discharge instructions and discharge home medications reviewed with staff at [facility] and a copy given to transport. All questions have been answered and understanding verbalized. Discontinued line and catheter intact.
== END 2019-04-18 16:50 | DRG 280 ==
LOC: ER 21:34 → 2 SOUTH 22:45
PROVIDERS: ADMIT Internal Medicine; ATTEND Internal Medicine
PROC: 5A09357 Assistance with Respiratory Ventilation, Less than 24 Consecutive Hours, Continuous Positive Airway Pressure (ICD-10-PCS; principal; 2019-04-09)
PROC: 5A1D70Z Performance of Urinary Filtration, Intermittent, Less than 6 Hours Per Day (ICD-10-PCS; 2019-04-10)
PROC: 5A1D70Z Performance of Urinary Filtration, Intermittent, Less than 6 Hours Per Day (ICD-10-PCS; 2019-04-12)
PROC: 5A1D70Z Performance of Urinary Filtration, Intermittent, Less than 6 Hours Per Day (ICD-10-PCS; 2019-04-15)
PROC: 5A1D70Z Performance of Urinary Filtration, Intermittent, Less than 6 Hours Per Day (ICD-10-PCS; 2019-04-17)
DX: I21.4 Non-ST elevation (NSTEMI) myocardial infarction (principal); I50.43 Acute on chronic combined systolic (congestive) and diastolic (congestive) heart failure; J96.01 Acute respiratory failure with hypoxia; N18.6 End stage renal disease; I13.2 Hypertensive heart and chronic kidney disease with heart failure and with stage 5 chronic kidney disease, or end stage renal disease; I42.9 Cardiomyopathy, unspecified; D64.9 Anemia, unspecified; E11.22 Type 2 diabetes mellitus with diabetic chronic kidney disease; E11.51 Type 2 diabetes mellitus with diabetic peripheral angiopathy without gangrene; F03.90 Unspecified dementia, unspecified severity, without behavioral disturbance, psychotic disturbance, mood disturbance, and anxiety; E78.5 Hyperlipidemia, unspecified; I25.10 Atherosclerotic heart disease of native coronary artery without angina pectoris; Z82.49 Family history of ischemic heart disease and other diseases of the circulatory system; Z91.15 Patient's noncompliance with renal dialysis; Z99.2 Dependence on renal dialysis; E21.3 Hyperparathyroidism, unspecified; M19.90 Unspecified osteoarthritis, unspecified site
CPT/HCPCS: 36415; 36600; 71045; 80053; 80061; 80069; 82805; 82962; 83735; 83880; 84443; 84484; 85007; 85018; 85025; 85027; 85520; 93005; 93308; 94640; 94660; 94760; 96365; 96375; 99291; J0882; J1644; J2270; 92526; 92610; 97110; 97530; 97535; G0378